=== PATIENT | male | born 1935 | race Caucasian/White ===

== ENCOUNTER 2018-06-29 16:43 | Inpatient (IN) | payer MEDICARE, BC ==
[2018-06-29] MEDS ORDERED: NS 0.9% 1000 ML* 1,000 ML IV ONE (17:06)
--- NOTE | 2018-06-29 17:35 | RAD ---
HISTORY: Weakness COMPARISONS: July 31, 2016 TECHNIQUE: Multiple contiguous axial CT scans were obtained of the head without intravenous contrast. FINDINGS: HEMORRHAGE/INFARCT: There is no hemorrhage or acute infarct. MASSES/SHIFT: There is no mass or shift. EXTRA-AXIAL SPACES: There are no extra-axial fluid collections. SULCI AND VENTRICLES: There is diffuse and proportional enlargement of the sulci and ventricles. CEREBRUM: There are no focal parenchymal abnormalities. BRAINSTEM: There are no focal parenchymal abnormalities. CEREBELLUM: There are no focal parenchymal abnormalities. VESSELS: There is calcification of the cavernous segments of the internal carotid arteries bilaterally and of the distal vertebral arteries bilaterally. PARANASAL SINUSES: The paranasal sinuses are clear. ORBITS: The orbits are unremarkable. BONES AND SOFT TISSUE: No bone or soft tissue abnormalities are noted. OTHER: None IMPRESSION: NO ACUTE INTRACRANIAL PATHOLOGY. DIFFUSE INVOLUTIONAL CHANGE.
[2018-06-29 18:21] LABS: Hematocrit 39 % (42-52); Hemoglobin 12.9 g/dl (14.0-18.0); Mean Corpuscular HGB Conc 33 g/dl (31-36); Mean Corpuscular Hemoglobin 30 pg (27-31); Mean Corpuscular Volume 92 fL (80-94); Mean Platelet Volume 8.3 um3 (7.4-10.4); Platelet Count 262 10^3/ul (150-450); Red Blood Count 4.25 10^6/ul (4.00-5.40); Red Cell Distribution Width 15 % (10.5-15)
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
[2018-06-29 18:39] LABS: EGFR Non-African American 87.1 (>60)
[2018-06-29 18:41] LABS: Urine Appearance Cloudy; Urine Blood 3+ (Negative); Urine Color Amber; Urine Ketones 1+ (Negative); Urine Protein 2+(100 mg/dL) (Negative); Urine Red Blood Cell 2+(6-10/hpf) (Absent); Urine Urobilinogen Negative (Negative); Urine White Blood Cell 3+(>20/hpf) (Absent)
[2018-06-29] MEDS ORDERED: Ciprofloxacin 400MG IVPREMIX(* 400 MG/200 ML BAG IVPB ONE (18:47)
[2018-06-29] MEDS ORDERED: Magnesium Oxide TAB* 400 MG PO ONE (18:54)
[2018-06-29 19:32] LABS: ABS Basophils 0.1 10^3/ul (0-0.2); ABS Eosinophils 0 10^3/ul (0-0.6); ABS Lymphocytes 0.4 10^3/ul (1.0-4.8); ABS Monocytes 0.8 10^3/ul (0-0.8); ABS Neutrophils 22.7 10^3/ul (1.5-7.7); ABS Nucleated RBC 0 10^3/ul; Eosinophil % 0 % (0-6); Lymphocyte % 1.7 % (25-47); Nucleated Red Blood Cells % 0
[2018-06-29] MEDS ORDERED: Docusate CAP* 100 MG PO PRN (19:53)
[2018-06-29] MEDS ORDERED: Senna TAB PO PRN ×2 (19:53→19:58)
[2018-06-29] MEDS ORDERED: Al Hydrox/Mg Hydrox/Simet LIQ* 30 ML UDC PO PRN (19:53)
[2018-06-29] MEDS ORDERED: Ondansetron INJ* 2 MG/ML VIAL IV PRN (19:53)
[2018-06-29] MEDS ORDERED: Acetaminophen TAB* 325 MG PO PRN (19:53)
--- NOTE | 2018-06-29 20:40 | RAD ---
EXAM: CT Abdomen and Pelvis Without Intravenous Contrast CLINICAL HISTORY: 82 years old, male; Pain; Abdominal pain; Prior surgery; Patient HX: Hernia repair; Additional info: R/O stone TECHNIQUE: Axial computed tomography images of the abdomen and pelvis without intravenous contrast. All CT scans at this facility use at least one of these dose optimization techniques: automated exposure control; mA and/or kV adjustment per patient size (includes targeted exams where dose is matched to clinical indication); or iterative reconstruction. Coronal and sagittal reformatted images were created and reviewed. COMPARISON: A/P W CT ABD/PEL W 11/24/2014 6:56 PM FINDINGS: Lung bases: Mild dependent subsegmental atelectasis. Mediastinum: Small hiatal hernia. No adjacent stranding. ABDOMEN: Liver: Several simple hepatic cysts again identified largest in segment V measures 3.9 cm previously 3.3 cm. Round cyst now showing peripheral thin calcifications in segment 4A measures 2.9 cm, previously 3.2 cm. Normal liver size. Gallbladder and bile ducts: Normal. No radiopaque calculi. No ductal dilation. Pancreas: Normal. No ductal dilation. Spleen: Normal. No splenomegaly. Adrenals: Tiny calcified right adrenal gland unchanged from prior study. Mildly thickened left adrenal gland without focal nodularity. Kidneys and ureters: Left minimal lower pole and right lower pole simple cysts with the largest on the left measuring 3 cm. No calculi or pelvocaliectasis. Stomach and bowel: Incompletely distended grossly normal stomach. Normal caliber small bowel. Distal colonic diverticula without adjacent inflammatory changes or associated wall thickening. Supraumbilical fat and colon containing hernia. No adjacent stranding or upstream colonic dilation. PELVIS: Appendix: No dilation or periappendiceal inflammation. Bladder: Circumferentially thickwalled urinary bladder with mild perivesicular stranding. Anterior right and posterior right bladder diverticula with the posterior diverticulum containing a small calcification. Reproductive: Severe prostate enlargement. Normal seminal vesicles. Partially visualized bilateral hydroceles. ABDOMEN and PELVIS: Intraperitoneal space: Normal. No pneumoperitoneum. No ascities. Bones/joints: The spine demonstrates moderate degenerative changes at multiple levels. Height loss of all lumbar vertebral bodies and more acute appearing partially visualized fracture of T9. No retropulsed fragments. No suspicious osseous lesions. Soft tissues: See above. Vasculature: There is mild atherosclerotic calcification of the coronary arteries. The aorta demonstrates mild atherosclerotic calcification. No abdominal aortic aneurysm. Lymph nodes: Normal. No enlarged lymph nodes. IMPRESSION: 1. Findings of cystitis in combination with bladder outlet obstruction from severe prostatomegaly. No obstructing renal or ureteral calculi. 2. Colon containing supraumbilical hernia. No strangulation or obstruction. 3. Age-indeterminate possibly partially acute T9 compression fracture. 4. Additional incidental findings as described.
--- NOTE | 2018-06-29 21:18 | RAD ---
EXAM: US Abdomen Limited, Right Upper Quadrant CLINICAL HISTORY: 82 years old, male; Pain; Abdominal pain; Flank; Right upper quadrant (ruq); Additional info: Ruq pain TECHNIQUE: Real-time ultrasound of the right upper quadrant with image documentation. COMPARISON: A/P WO CT ABD/PEL W/O 06/29/2018 8:05 PM FINDINGS: Liver: Several simple hepatic cysts example inferior right hepatic lobe measuring 1.4 x 1.3 x 1.1 cm. Anterior right hepatic lobe cyst measures 0.7 x 0.7 x 0.7 cm. Larger hepatic cyst adjacent to gallbladder fossa measures 4.3 x 4.0 x 3.0 cm. Hypoechoic focus with peripheral calcifications medial segment left hepatic lobe measures 3.2 x 2.4 x 2.4 cm showing no internal vascularity. Left hepatic lobe not well visualized due to overlying bowel gas. Normal hepato-pedal portal vein flow. Gallbladder: No gallstones, wall thickening, pericholecystic fluid, or sonographic Pelayo's sign. Common bile duct: CBD measures 0.7 cm. Pancreas: The pancreas is poorly-visualized due to overlying bowel gas. Right kidney: Right kidney measures 9.8 x 5.0 x 5.0 cm (128 cc). Exophytic simple cyst in the lower pole measures 1.9 x 1.8 x 1.8 cm. No solid cortical lesions, calculi, or pelvocaliectasis. Aorta: Moderately atherosclerotic normal caliber aorta measuring 2.4 cm proximally. Inferior vena cava: Patent IVC. IMPRESSION: 1. No sonographic findings to correlate with patient's symptomatology. 2. Multiple simple hepatic cysts and a mildly complex peripherally calcified cyst. 3. Simple right renal cyst.
[2018-06-29] MEDS: Multivitamins/Minera Areds(NF) 1 CAP CAP PO SCH (23:17)
[2018-06-29] MEDS: NS 0.9% 1000 ML* 1,000 ML IV SCH (23:17)
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
[2018-06-30 05:58] LABS: ABS Basophils 0.1 10^3/ul (0-0.2); ABS Eosinophils 0 10^3/ul (0-0.6); ABS Lymphocytes 0.9 10^3/ul (1.0-4.8); ABS Monocytes 0.7 10^3/ul (0-0.8); ABS Neutrophils 18.1 10^3/ul (1.5-7.7); ABS Nucleated RBC 0 10^3/ul; Eosinophil % 0 % (0-6); Hematocrit 33 % (42-52); Lymphocyte % 4.4 % (25-47); Mean Corpuscular HGB Conc 34 g/dl (31-36); Mean Corpuscular Hemoglobin 31 pg (27-31); Mean Corpuscular Volume 91 fL (80-94); Mean Platelet Volume 8.7 um3 (7.4-10.4); Nucleated Red Blood Cells % 0.1; Platelet Count 199 10^3/ul (150-450); Red Blood Count 3.58 10^6/ul (4.00-5.40); Red Cell Distribution Width 15 % (10.5-15); White Blood Count 19.7 10^3/ul (3.5-10.8)
[2018-06-30] MEDS: cefTRIAXone(*) 1 GM in NS 0.9% 50 ML* 50 ML IVPB SCH (06:02)
[2018-06-30] MEDS: Heparin VIAL(*) 5000 UNITS/ML VIAL (FIVE THOUSAND) SUBCUT SCH ×3 (06:03→23:14)
[2018-06-30 06:48] LABS: EGFR Non-African American 93.4 (>60)
--- NOTE | 2018-06-30 07:07 | RAD ---
INDICATION: Weakness. COMPARISON: Comparison is made with a prior chest x-ray study from July 31, 2016. TECHNIQUE: Dual-energy PA views of the chest were obtained. FINDINGS: The heart is within normal limits in size. The lungs are underinflated. There is a small infiltrate was projects over the left upper lobe. No pleural effusion is seen. IMPRESSION: LOW LUNG VOLUMES, SMALL LEFT UPPER LOBE INFILTRATE
--- NOTE | 2018-06-30 07:11 | RAD ---
INDICATION: Right hip pain. COMPARISON: There are no relevant prior studies available for comparison. TECHNIQUE: An AP view of the pelvis and frontal and lateral views of the right hip were obtained. FINDINGS: The bones are in normal alignment. No fracture is seen. There is mild bilateral osteoarthritic change in the hips. IMPRESSION: NO EVIDENCE FOR FRACTURE, IF THE PATIENT'S SYMPTOMS PERSIST RECOMMEND FOLLOW-UP IMAGING. R0
--- NOTE | 2018-06-30 07:14 | RAD ---
INDICATION: Right shoulder pain. TECHNIQUE: 4 views of the right shoulder were obtained. FINDINGS: The bones are in normal alignment. No fracture is seen. There is moderate osteoarthritic change in the acromioclavicular and glenohumeral joint spaces. IMPRESSION: 1. NO EVIDENCE FOR FRACTURE. 2. MODERATE OSTEOARTHRITIC CHANGE. R0
[2018-06-30] MEDS: NS 0.9% 1000 ML* 1,000 ML IV SCH ×2 (08:15→16:46)
[2018-06-30] MEDS: Multivitamins/Minera Areds(NF) 1 CAP CAP PO SCH ×2 (08:54→20:14)
[2018-06-30] MEDS: Cyanocobalamin TAB* 500 MCG PO SCH (09:45)
[2018-06-30] MEDS: Ascorbic Acid TAB* 500 MG PO SCH (09:45)
[2018-06-30] MEDS: Famotidine TAB* 20 MG PO SCH (09:45)
[2018-06-30] MEDS ORDERED: NS 0.9% 1000 ML* 1,000 ML IV ONE ×3 (12:26→16:57)
--- NOTE | 2018-06-30 14:53 | PN ---
Subjective Date of Service: 06/30/18 Interval History: HOSPITALIST PROGRESS NOTE Patient seen and examined at bedside. Care reviewed and d/w Ciera Villatoro RN. He feels well today. RUQ pain has resolved, appetite is good, denies N/V. Family History: Unchanged from Admission Social History: Unchanged from Admission Past Medical History: Unchanged from Admission Objective Active Medications: Acetaminophen (Tylenol Tab*) 650 mg PO Q4H PRN PRN Reason: FEVER/PAIN Last Admin: 06/29/18 23:45 Dose: 650 mg Al Hydrox/Mg Hydrox/Simethicone (Maalox Plus*) 30 ml PO Q6H PRN PRN Reason: INDIGESTION Ascorbic Acid (Vitamin C Tab*) 1,000 mg PO DAILY [facility] Last Admin: 06/30/18 09:45 Dose: 1,000 mg Cyanocobalamin (Vitamin B12 Tab*) 1,000 mcg PO DAILY [facility] Last Admin: 06/30/18 09:45 Dose: 1,000 mcg Docusate Sodium (Colace Cap*) 100 mg PO BID PRN PRN Reason: CONSTIPATION Famotidine (Pepcid Tab*) 20 mg PO DAILY [facility] Last Admin: 06/30/18 09:45 Dose: 20 mg Heparin Sodium (Porcine) (Heparin Vial(*)) 5,000 units SUBCUT Q8HR [facility] Last Admin: 06/30/18 13:20 Dose: Not Given Ceftriaxone Sodium 1 gm/ (Sodium Chloride) 50 mls @ 200 mls/hr IVPB Q24H [facility] Last Admin: 06/30/18 06:02 Dose: 200 mls/hr Sodium Chloride (Ns 0.9% 1000 Ml*) 1,000 mls @ 100 mls/hr IV PER RATE [facility] Last Admin: 06/30/18 08:15 Dose: 100 mls/hr Multivitamins/Minerals (Preservision Areds(Multivitamins/Mineral)(Nf)) 1 cap PO BID [facility] Last Admin: 06/30/18 08:54 Dose: Not Given Ondansetron HCl (Zofran Inj*) 4 mg IV Q4H PRN PRN Reason: NAUSEA/VOMITING Senna (Senokot Tab*) 2 tab PO BID PRN PRN Reason: CONSTIPATION Tramadol HCl (Ultram*) 50 mg PO Q6HR PRN PRN Reason: PAIN Vital Signs - 8 hr 06/30/18 06/30/18 06/30/18 07:56 08:00 11:46 Temperature 99.8 F 99.2 F Pulse Rate 77 88 Respiratory 16 16 16 Rate Blood Pressure 96/58 81/49 (mmHg) O2 Sat by Pulse 97 100 Oximetry 06/30/18 12:24 Temperature Pulse Rate Respiratory Rate Blood Pressure 88/50 (mmHg) O2 Sat by Pulse Oximetry Oxygen Devices in Use Now: None Appearance: Pleasant elderly gentleman sitting up in bed in NAD. Eyes: No Scleral Icterus Ears/Nose/Mouth/Throat: Mucous Membranes Moist Neck: Trachea Midline Respiratory: Symmetrical Chest Expansion and Respiratory Effort, Clear to Auscultation Cardiovascular: RRR - Normal S1 and S2, +SM Abdominal: NL Sounds; No Tenderness; No Distention Extremities: No Edema Neurological: Alert and Oriented x 3, NL Muscle Strength and Tone Result Diagrams: 06/30/18 05:31 06/30/18 05:31 Assess/Plan/Problems-Billing Assessment: Mr Milian is an 82yo M with PMH of DVT, SBO, GERD, who presented to ED after falls, found to have an UTI. - Patient Problems (1) Sepsis Comment: - Presentation compatible with sepsis on admission with leukocytosis, fever, and tachypnea. - Source is urinary tract infection. (2) UTI (urinary tract infection) Comment: - Present on admission, not [place] catheter related. - CT abdome showed cystitis with bladder outlet obstruction from severe prostatomegaly. Suspect he likely also has prostatitis. - PVR 119ml - d/w Urology - recommended Finasteride 5mg/day and f/u as outpatient. - Follow urine culture and continue Ceftriaxone. - BP was on the softer side earlier today - received 1 liter bolus - continue to monitor. (3) History of DVT (deep vein thrombosis) Comment: - Patient has h/o LE DVT in 1975 after a long car ride. He was under the impression he would be on Warfarin for the rest of his life, but this was his only episode and he does not recall being told he had some genetic problem causing his DVT. No family h/o blood clots. 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 Transitioned from Warfarin to Pradaxa in 2016. - Patient is hesitant to discontinue anticoagulation at this time, but understands he's at a greater risk of bleeding due to his falls - will continue Pradaxa for now, but this should be further addressed by his PCP. (4) Chronic back pain Comment: - With h/o compression fractures - CT shows T9 age indeterminate compression fracture. - Continue Tramadol. (5) GERD (gastroesophageal reflux disease) Comment: - Continue Famotidine. (6) Lactic acidosis Comment: - Resolved. (7) Physical deconditioning Comment: - PT consult. (8) DVT prophylaxis Comment: - Pradaxa. (9) Full code status Status and Disposition: Inpatient.
[2018-07-01] MEDS: NS 0.9% 1000 ML* 1,000 ML IV SCH ×2 (04:00→14:02)
[2018-07-01 05:44] LABS: ABS Basophils 0.1 10^3/ul (0-0.2); ABS Eosinophils 0.2 10^3/ul (0-0.6); ABS Lymphocytes 0.9 10^3/ul (1.0-4.8); ABS Monocytes 0.9 10^3/ul (0-0.8); ABS Nucleated RBC 0 10^3/ul; Eosinophil % 1.4 % (0-6); Hematocrit 30 % (42-52); Hemoglobin 9.9 g/dl (14.0-18.0); Lymphocyte % 6.2 % (25-47); Mean Corpuscular HGB Conc 34 g/dl (31-36); Mean Corpuscular Hemoglobin 31 pg (27-31); Mean Corpuscular Volume 91 fL (80-94); Mean Platelet Volume 8.7 um3 (7.4-10.4); Nucleated Red Blood Cells % 0.1; Platelet Count 178 10^3/ul (150-450); Red Blood Count 3.23 10^6/ul (4.00-5.40); Red Cell Distribution Width 16 % (10.5-15)
[2018-07-01] MEDS: cefTRIAXone(*) 1 GM in NS 0.9% 50 ML* 50 ML IVPB SCH (06:05)
[2018-07-01 06:07] LABS: EGFR Non-African American 130.9 (>60)
[2018-07-01] MEDS: Heparin VIAL(*) 5000 UNITS/ML VIAL (FIVE THOUSAND) SUBCUT SCH ×3 (06:11→22:24)
[2018-07-01] MEDS: Cyanocobalamin TAB* 500 MCG PO SCH (08:33)
[2018-07-01] MEDS: Ascorbic Acid TAB* 500 MG PO SCH (08:33)
[2018-07-01] MEDS: Famotidine TAB* 20 MG PO SCH (08:33)
[2018-07-01] MEDS: Finasteride TAB* 5 MG PO SCH (08:33)
[2018-07-01] MEDS: Multivitamins/Minera Areds(NF) 1 CAP CAP PO SCH ×2 (08:34→22:22)
--- NOTE | 2018-07-01 17:47 | PN ---
Subjective Date of Service: 07/01/18 Interval History: . feels tired, but no other complaints difficulty walking (general weakness and soreness from recent falls) explained he has h/o two remote DVT's -- both provoked. denies new s/sx. no fever IVF ongoing . Family History: Unchanged from Admission Social History: Unchanged from Admission Past Medical History: Unchanged from Admission Objective Active Medications: . Acetaminophen (Tylenol Tab*) 650 mg PO Q4H PRN PRN Reason: FEVER/PAIN Last Admin: 06/29/18 23:45 Dose: 650 mg Al Hydrox/Mg Hydrox/Simethicone (Maalox Plus*) 30 ml PO Q6H PRN PRN Reason: INDIGESTION Ascorbic Acid (Vitamin C Tab*) 1,000 mg PO DAILY [facility] Last Admin: 07/01/18 08:33 Dose: 1,000 mg Cyanocobalamin (Vitamin B12 Tab*) 1,000 mcg PO DAILY [facility] Last Admin: 07/01/18 08:33 Dose: 1,000 mcg Docusate Sodium (Colace Cap*) 100 mg PO BID PRN PRN Reason: CONSTIPATION Last Admin: 07/01/18 06:05 Dose: 100 mg Famotidine (Pepcid Tab*) 20 mg PO DAILY [facility] Last Admin: 07/01/18 08:33 Dose: 20 mg Finasteride (Proscar Tab*) 5 mg PO DAILY [facility] Last Admin: 07/01/18 08:33 Dose: 5 mg Heparin Sodium (Porcine) (Heparin Vial(*)) 5,000 units SUBCUT Q8HR [facility] Last Admin: 07/01/18 13:49 Dose: Not Given Ceftriaxone Sodium 1 gm/ (Sodium Chloride) 50 mls @ 200 mls/hr IVPB Q24H [facility] Last Admin: 07/01/18 06:05 Dose: 200 mls/hr Sodium Chloride (Ns 0.9% 1000 Ml*) 1,000 mls @ 100 mls/hr IV PER RATE [facility] Last Admin: 07/01/18 14:02 Dose: 100 mls/hr Multivitamins/Minerals (Preservision Areds(Multivitamins/Mineral)(Nf)) 1 cap PO BID [facility] Last Admin: 07/01/18 08:34 Dose: Not Given Ondansetron HCl (Zofran Inj*) 4 mg IV Q4H PRN PRN Reason: NAUSEA/VOMITING Senna (Senokot Tab*) 2 tab PO BID PRN PRN Reason: CONSTIPATION Last Admin: 07/01/18 06:05 Dose: 2 tab Tramadol HCl (Ultram*) 50 mg PO Q6HR PRN PRN Reason: PAIN . Vital Signs - 8 hr 07/01/18 07/01/18 07/01/18 11:16 12:05 16:00 Temperature 100.1 F 98.2 F 98.7 F Pulse Rate 77 63 Respiratory 18 20 Rate Blood Pressure 95/54 105/62 (mmHg) O2 Sat by Pulse 97 97 Oximetry Oxygen Devices in Use Now: None Appearance: NAD Eyes: No Scleral Icterus Ears/Nose/Mouth/Throat: Clear Oropharnyx Neck: NL Appearance and Movements; NL JVP Respiratory: Symmetrical Chest Expansion and Respiratory Effort Cardiovascular: NL Sounds; No Murmurs; No JVD Abdominal: NL Sounds; No Tenderness; No Distention Lymphatic: No Cervical Adenopathy Extremities: No Edema Skin: No Rash or Ulcers Neurological: Alert and Oriented x 3 Lines/Tubes/Other Access: Clean, Dry and Intact Peripheral IV Nutrition: Taking PO's Result Diagrams: 07/01/18 05:28 07/01/18 05:28 Microbiology and Other Data: Microbiology 06/29/18 18:11 Aerobic Blood Culture - Preliminary Blood Venous No Growth Day 1 Anaerobic Blood Culture - Preliminary Escherichia Coli 06/29/18 18:12 Urine Culture - Final Urine Escherichia Coli 06/29/18 18:12 Aerobic Blood Culture - Preliminary Blood Venous No Growth Day 1 Anaerobic Blood Culture - Preliminary No Growth Day 1 06/29/18 23:20 Influenza Types A,B Antigen - Final Nasopharyngeal Specimen received for Influenza A/B Molecular testing Assess/Plan/Problems-Billing Assessment: Mr Milian is an 82yo M with PMH of DVT, SBO, GERD, who presented to ED after falls, found to have an UTI. - Patient Problems (1) UTI (urinary tract infection) Current Visit: Yes Status: Acute Comment: - Present on admission, not [id number]. - CT abdomen showed cystitis with bladder outlet obstruction from severe prostatomegaly. Suspect he likely also has prostatitis ==> will prolong ABX course. - PVR 119ml - d/w Urology - recommended Finasteride 5mg/day and outpatient f/u - Urine culture + for E. Coli S to Ceftriaxone (continuing) (2) Sepsis Current Visit: Yes Status: Acute Comment: - Presentation c/w sepsis on admission with leukocytosis, fever, and tachypnea. - Source is urinary tract infection. (3) History of DVT (deep vein thrombosis) Current Visit: Yes Status: Acute Priority: High Code(s): Z86.718 - PERSONAL HISTORY OF OTHER VENOUS THROMBOSIS AND EMBOLISM Comment: - Patient has h/o LE DVT in 1975 after a long car ride. He was under the impression he would be on Warfarin for the rest of his life, but this was his only episode and he does not recall being told he had some genetic problem causing his DVT. No family h/o blood clots. 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 Transitioned from Warfarin to Pradaxa in 2016. - Patient is hesitant to discontinue anticoagulation at this time, but understands he's at a greater risk of bleeding due to his falls - This should be further addressed by his PCP. (4) Chronic back pain Current Visit: Yes Status: Acute Priority: High Code(s): M54.9 - DORSALGIA , UNSPECIFIED; G89.29 - OTHER CHRONIC PAIN Comment: - With h/o compression fractures - CT shows T9 age indeterminate compression fracture. - Continue Tramadol. (5) DVT prophylaxis Current Visit: Yes Status: Acute Priority: High Code(s): HPS4925 - Comment: - Pradaxa. (6) Full code status Current Visit: Yes Status: Acute Priority: High Code(s): Z78.9 - OTHER SPECIFIED HEALTH STATUS (7) GERD (gastroesophageal reflux disease) Current Visit: Yes Status: Acute Priority: High Code(s): K21.9 - GASTRO- ESOPHAGEAL REFLUX DISEASE WITHOUT ESOPHAGITIS Comment: - Continue Famotidine. Status and Disposition: Inpatient.
[2018-07-01] MEDS ORDERED: Potassium Chlor TAB* 10 MEQ TAB.ER PO ONE (17:50)
[2018-07-02] MEDS: cefTRIAXone(*) 1 GM in NS 0.9% 50 ML* 50 ML IVPB SCH (06:01)
[2018-07-02] MEDS: Heparin VIAL(*) 5000 UNITS/ML VIAL (FIVE THOUSAND) SUBCUT SCH ×3 (06:04→21:41)
[2018-07-02 07:48] LABS: ABS Basophils 0.1 10^3/ul (0-0.2); ABS Eosinophils 0.3 10^3/ul (0-0.6); ABS Lymphocytes 0.9 10^3/ul (1.0-4.8); ABS Monocytes 0.9 10^3/ul (0-0.8); ABS Neutrophils 8.2 10^3/ul (1.5-7.7); ABS Nucleated RBC 0 10^3/ul; Eosinophil % 2.5 % (0-6); Hematocrit 29 % (42-52); Lymphocyte % 8.3 % (25-47); Mean Corpuscular HGB Conc 34 g/dl (31-36); Mean Corpuscular Hemoglobin 31 pg (27-31); Mean Corpuscular Volume 91 fL (80-94); Nucleated Red Blood Cells % 0; Platelet Count 180 10^3/ul (150-450); Red Blood Count 3.22 10^6/ul (4.00-5.40); Red Cell Distribution Width 16 % (10.5-15); White Blood Count 10.3 10^3/ul (3.5-10.8)
[2018-07-02 08:08] LABS: EGFR Non-African American 178.9 (>60)
[2018-07-02] MEDS: Multivitamins/Minera Areds(NF) 1 CAP CAP PO SCH ×2 (10:14→21:42)
[2018-07-02] MEDS: Cyanocobalamin TAB* 500 MCG PO SCH (10:14)
[2018-07-02] MEDS: Ascorbic Acid TAB* 500 MG PO SCH (10:14)
[2018-07-02] MEDS: Finasteride TAB* 5 MG PO SCH (10:14)
[2018-07-02] MEDS: Famotidine TAB* 20 MG PO SCH (10:14)
--- NOTE | 2018-07-02 17:24 | PN ---
Subjective Date of Service: 07/02/18 Interval History: Mr. Chacon is feeling well this morning. Denies pain. SBPs improved since yesterday. Has been up ambulating in the room. Denies CP, dizziness, SOB, N/V, dysuria. Family History: Unchanged from Admission Social History: Unchanged from Admission Past Medical History: Unchanged from Admission Objective Active Medications: Acetaminophen (Tylenol Tab*) 650 mg PO Q4H PRN Al Hydrox/Mg Hydrox/Simethicone (Maalox Plus*) 30 ml PO Q6H PRN Ascorbic Acid (Vitamin C Tab*) 1,000 mg PO DAILY [facility] Cyanocobalamin (Vitamin B12 Tab*) 1,000 mcg PO DAILY [facility] Docusate Sodium (Colace Cap*) 100 mg PO BID PRN Famotidine (Pepcid Tab*) 20 mg PO DAILY [facility] Finasteride (Proscar Tab*) 5 mg PO DAILY [facility] Heparin Sodium (Porcine) (Heparin Vial(*)) 5,000 units SUBCUT Q8HR [facility] Ceftriaxone Sodium 1 gm/ (Sodium Chloride) 50 mls @ 200 mls/hr IVPB Q24H [facility] Lactated Ringer's (Lactated Ringers 1000 Ml Bag*) 1,000 mls @ 75 mls/hr IV PER RATE [facility] Multivitamins/Minerals (Preservision Areds(Multivitamins/Mineral)(Nf)) 1 cap PO BID [facility] Ondansetron HCl (Zofran Inj*) 4 mg IV Q4H PRN Senna (Senokot Tab*) 2 tab PO BID PRN Tramadol HCl (Ultram*) 50 mg PO Q6HR PRN Vital Signs - 8 hr 07/02/18 07/02/18 14:45 15:34 Temperature 98.1 F 97.6 F Pulse Rate 72 62 Respiratory 16 24 Rate Blood Pressure 111/67 106/58 (mmHg) O2 Sat by Pulse 98 98 Oximetry Oxygen Devices in Use Now: None Appearance: Elderly male laying in bed in no acute distress. Eyes: No Scleral Icterus, PERRLA Ears/Nose/Mouth/Throat: Mucous Membranes Moist Neck: NL Appearance and Movements; NL JVP Respiratory: Symmetrical Chest Expansion and Respiratory Effort, Clear to Auscultation Cardiovascular: NL Sounds; No Murmurs; No JVD, RRR, No Edema Abdominal: No Hepatosplenomegaly, - - LLQ and RLQ tender to palpation Extremities: No Edema Skin: No Rash or Ulcers Neurological: Alert and Oriented x 3 Lines/Tubes/Other Access: Clean, Dry and Intact Peripheral IV Nutrition: Taking PO's Result Diagrams: 07/02/18 07:24 07/02/18 07:24 Assess/Plan/Problems-Billing Assessment: Mr Milian is an 82yo M with PMH of DVT, SBO, GERD, who presented to ED after falls, found to have an UTI. - Patient Problems (1) UTI (urinary tract infection) Current Visit: Yes Status: Acute Priority: High Comment: - Present on admission, not catheter related - CT abdomen showed cystitis with bladder outlet obstruction from severe prostatomegaly; suspect he likely also has prostatitis - will prolong ABX course - PVR 119ml; d/w Urology - recommended Finasteride 5mg/day and outpatient f/u - Urine culture + for E. Coli S to Ceftriaxone (continuing) (2) Low blood pressure Current Visit: Yes Status: Acute Priority: High Comment: - SBPs 80-90, increased to 100-110s with IVF - Will decrease IVF and reassess tomorrow (3) Sepsis Current Visit: Yes Status: Acute Priority: High Comment: - Resolved - Presentation c/w sepsis on admission with leukocytosis, fever, and tachypnea - Source is urinary tract infection (4) GERD (gastroesophageal reflux disease) Current Visit: Yes Status: Acute Priority: High Code(s): K21.9 - GASTRO- ESOPHAGEAL REFLUX DISEASE WITHOUT ESOPHAGITIS SNOMED Code(s): 208484008 Comment: - Continue famotidine (5) Chronic back pain Current Visit: Yes Status: Acute Priority: High Code(s): M54.9 - DORSALGIA , UNSPECIFIED; G89.29 - OTHER CHRONIC PAIN SNOMED Code(s): 940106499 Comment: - With h/o compression fractures - CT shows T9 age indeterminate compression fracture - Continue Tramadol (6) History of DVT (deep vein thrombosis) Current Visit: Yes Status: Acute Priority: High Code(s): Z86.718 - PERSONAL HISTORY OF OTHER VENOUS THROMBOSIS AND EMBOLISM SNOMED Code(s): 008301332 Comment: - Patient has h/o LE DVT in 1975 after a long car ride. He was under the impression he would be on Warfarin for the rest of his life, but this was his only episode and he does not recall being told he had some genetic problem causing his DVT. No family h/o blood clots. 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 Transitioned from Warfarin to Pradaxa in 2016. - Patient is hesitant to discontinue anticoagulation at this time, but understands he's at a greater risk of bleeding due to his falls - This should be further addressed by his PCP (7) Full code status Current Visit: Yes Status: Acute Priority: High Code(s): Z78.9 - OTHER SPECIFIED HEALTH STATUS SNOMED Code(s): 517944587 (8) DVT prophylaxis Current Visit: Yes Status: Acute Priority: High Code(s): EWO8761 - SNOMED Code(s): 143047712 Comment: - Heparin SQ Status and Disposition: Inpatient. Bed offer at [facility] when medically stable.
[2018-07-02] MEDS: traMADol TAB* 50 MG PO PRN (21:39)
[2018-07-03 06:17] LABS: ABS Basophils 0.1 10^3/ul (0-0.2); ABS Eosinophils 0.4 10^3/ul (0-0.6); ABS Lymphocytes 1.1 10^3/ul (1.0-4.8); ABS Monocytes 0.9 10^3/ul (0-0.8); ABS Neutrophils 5.8 10^3/ul (1.5-7.7); ABS Nucleated RBC 0 10^3/ul; Eosinophil % 4.5 % (0-6); Hematocrit 31 % (42-52); Hemoglobin 10.5 g/dl (14.0-18.0); Lymphocyte % 13.7 % (25-47); Mean Corpuscular HGB Conc 34 g/dl (31-36); Mean Corpuscular Hemoglobin 31 pg (27-31); Mean Corpuscular Volume 91 fL (80-94); Mean Platelet Volume 8.6 um3 (7.4-10.4); Nucleated Red Blood Cells % 0; Platelet Count 190 10^3/ul (150-450); Red Blood Count 3.42 10^6/ul (4.00-5.40); Red Cell Distribution Width 16 % (10.5-15); White Blood Count 8.3 10^3/ul (3.5-10.8)
[2018-07-03] MEDS: Heparin VIAL(*) 5000 UNITS/ML VIAL (FIVE THOUSAND) SUBCUT SCH ×3 (06:19→21:00)
[2018-07-03] MEDS: cefTRIAXone(*) 1 GM in NS 0.9% 50 ML* 50 ML IVPB SCH (06:23)
[2018-07-03 06:34] LABS: EGFR Non-African American 166.1 (>60)
[2018-07-03] MEDS: Artificial Tears* 15 ML BTL BOTH EYES PRN (08:17)
[2018-07-03] MEDS: Cyanocobalamin TAB* 500 MCG PO SCH (08:18)
[2018-07-03] MEDS: Famotidine TAB* 20 MG PO SCH (08:18)
[2018-07-03] MEDS: traMADol TAB* 50 MG PO PRN (08:18)
[2018-07-03] MEDS: Finasteride TAB* 5 MG PO SCH (08:19)
[2018-07-03] MEDS: Ascorbic Acid TAB* 500 MG PO SCH (08:19)
[2018-07-03] MEDS ORDERED: Potassium Chlor TAB* 20 MEQ TAB.ER PO ONE (08:45)
[2018-07-03] MEDS: Multivitamins/Minera Areds(NF) 1 CAP CAP PO SCH (09:09)
--- NOTE | 2018-07-03 12:35 | PN ---
Subjective Date of Service: 07/03/18 Interval History: Mr. Chacon offers no complaints today. Having some shoulder pain. No urinary symptoms. Per nursing, patient was dizzy while laying in bed and has had SBPs in the 90s. Family History: Unchanged from Admission Social History: Unchanged from Admission Past Medical History: Unchanged from Admission Objective Active Medications: Acetaminophen (Tylenol Tab*) 650 mg PO Q4H PRN Al Hydrox/Mg Hydrox/Simethicone (Maalox Plus*) 30 ml PO Q6H PRN Ascorbic Acid (Vitamin C Tab*) 1,000 mg PO DAILY [facility] Cyanocobalamin (Vitamin B12 Tab*) 1,000 mcg PO DAILY [facility] Docusate Sodium (Colace Cap*) 100 mg PO BID PRN Famotidine (Pepcid Tab*) 20 mg PO DAILY [facility] Finasteride (Proscar Tab*) 5 mg PO DAILY [facility] Heparin Sodium (Porcine) (Heparin Vial(*)) 5,000 units SUBCUT Q8HR [facility] Ceftriaxone Sodium 1 gm/ (Sodium Chloride) 50 mls @ 200 mls/hr IVPB Q24H [facility] Midodrine (Midodrine (Nf)) 5 mg PO BID [facility]; Protocol Ondansetron HCl (Zofran Inj*) 4 mg IV Q4H PRN Polyvinyl Alcohol (Polyvinyl Alcohol 1.4% Opth*) 1 drop BOTH EYES Q2H PRN Senna (Senokot Tab*) 2 tab PO BID PRN Tramadol HCl (Ultram*) 50 mg PO Q6HR PRN Vital Signs - 8 hr 07/03/18 07/03/18 07/03/18 05:57 07:50 08:18 Temperature 98.0 F Pulse Rate 70 Respiratory 18 18 16 Rate Blood Pressure 105/63 (mmHg) O2 Sat by Pulse 95 Oximetry 07/03/18 07/03/18 07/03/18 10:40 10:59 12:25 Temperature 98.6 F Pulse Rate 94 Respiratory 19 14 Rate Blood Pressure 90/57 95/62 (mmHg) O2 Sat by Pulse 95 Oximetry Oxygen Devices in Use Now: None Appearance: Elderly male laying in bed in no acute distress. Eyes: No Scleral Icterus Ears/Nose/Mouth/Throat: NL Teeth, Lips, Gums, Mucous Membranes Moist Neck: NL Appearance and Movements; NL JVP Respiratory: Symmetrical Chest Expansion and Respiratory Effort, Clear to Auscultation Cardiovascular: NL Sounds; No Murmurs; No JVD, RRR, No Edema Abdominal: No Hepatosplenomegaly, - - RLQ and LLQ ternder to palpation Extremities: No Edema Skin: No Rash or Ulcers Neurological: Alert and Oriented x 3 Lines/Tubes/Other Access: Clean, Dry and Intact Peripheral IV Nutrition: Taking PO's Result Diagrams: 07/03/18 05:46 07/03/18 05:46 Assess/Plan/Problems-Billing Assessment: Mr Milian is an 82yo M with PMH of DVT, SBO, GERD, who presented to ED after falls, found to have an UTI. - Patient Problems (1) UTI (urinary tract infection) Current Visit: Yes Status: Acute Priority: High Comment: - Present on admission, not catheter related - CT abdomen showed cystitis with bladder outlet obstruction from severe prostatomegaly; suspect he likely also has prostatitis - will prolong ABX course - PVR 119ml; d/w Urology - recommended Finasteride 5mg/day and outpatient f/u - Urine culture + for E. Coli S to Ceftriaxone (continuing) (2) Low blood pressure Current Visit: Yes Status: Acute Priority: High Comment: - Symptomatic hypotension while laying down with SBP in the 90s - IVF stopped - Start midodrine BID (3) Sepsis Current Visit: Yes Status: Acute Priority: High Comment: - Resolved - Presentation c/w sepsis on admission with leukocytosis, fever, and tachypnea - Source is urinary tract infection (4) GERD (gastroesophageal reflux disease) Current Visit: Yes Status: Acute Priority: High Code(s): K21.9 - GASTRO- ESOPHAGEAL REFLUX DISEASE WITHOUT ESOPHAGITIS SNOMED Code(s): 640657425 Comment: - Continue famotidine (5) Chronic back pain Current Visit: Yes Status: Acute Priority: High Code(s): M54.9 - DORSALGIA , UNSPECIFIED; G89.29 - OTHER CHRONIC PAIN SNOMED Code(s): 421367429 Comment: - With h/o compression fractures - CT shows T9 age indeterminate compression fracture - Continue Tramadol (6) History of DVT (deep vein thrombosis) Current Visit: Yes Status: Acute Priority: High Code(s): Z86.718 - PERSONAL HISTORY OF OTHER VENOUS THROMBOSIS AND EMBOLISM SNOMED Code(s): 219273254 Comment: - Patient has h/o LE DVT in 1975 after a long car ride. He was under the impression he would be on Warfarin for the rest of his life, but this was his only episode and he does not recall being told he had some genetic problem causing his DVT. No family h/o blood clots. 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 Transitioned from Warfarin to Pradaxa in 2016. - Patient is hesitant to discontinue anticoagulation at this time, but understands he's at a greater risk of bleeding due to his falls - This should be further addressed by his PCP (7) Full code status Current Visit: Yes Status: Acute Priority: High Code(s): Z78.9 - OTHER SPECIFIED HEALTH STATUS SNOMED Code(s): 307077822 (8) DVT prophylaxis Current Visit: Yes Status: Acute Priority: High Code(s): XTY9232 - SNOMED Code(s): 612809912 Comment: - Heparin SQ Status and Disposition: Inpatient. D/c to [facility] when medically stable.
[2018-07-03] MEDS: CMC:Midodrine (NF) 5 MG TAB PO SCH ×2 (15:39→21:00)
[2018-07-04] MEDS: cefTRIAXone(*) 1 GM in NS 0.9% 50 ML* 50 ML IVPB SCH (05:47)
[2018-07-04] MEDS: Heparin VIAL(*) 5000 UNITS/ML VIAL (FIVE THOUSAND) SUBCUT SCH ×3 (05:50→21:22)
[2018-07-04 08:00] LABS: EGFR Non-African American 148.1 (>60)
[2018-07-04] MEDS: Famotidine TAB* 20 MG PO SCH (09:20)
[2018-07-04] MEDS: Cyanocobalamin TAB* 500 MCG PO SCH (09:20)
[2018-07-04] MEDS: Artificial Tears* 15 ML BTL BOTH EYES PRN ×3 (09:21→20:12)
[2018-07-04] MEDS: Ascorbic Acid TAB* 500 MG PO SCH (09:21)
[2018-07-04] MEDS: Finasteride TAB* 5 MG PO SCH (09:21)
[2018-07-04] MEDS: CMC:Midodrine (NF) 5 MG TAB PO SCH ×2 (10:46→20:11)
--- NOTE | 2018-07-04 16:35 | PN ---
Subjective Date of Service: 07/04/18 Interval History: Patient has no new complaints. He is trying to eat well. Has some lower abdominal discomfort. Prior to admission, living alone. He thinks he fell, injured buttocks, and strained R shoulder when getting up. He has little memory of events of admission, son is present. Family History: Unchanged from Admission Social History: Unchanged from Admission Past Medical History: Unchanged from Admission Objective Active Medications: Acetaminophen (Tylenol Tab*) 650 mg PO Q4H PRN PRN Reason: FEVER/PAIN Last Admin: 06/29/18 23:45 Dose: 650 mg Al Hydrox/Mg Hydrox/Simethicone (Maalox Plus*) 30 ml PO Q6H PRN PRN Reason: INDIGESTION Ascorbic Acid (Vitamin C Tab*) 1,000 mg PO DAILY [facility] Last Admin: 07/04/18 09:21 Dose: 1,000 mg Cyanocobalamin (Vitamin B12 Tab*) 1,000 mcg PO DAILY [facility] Last Admin: 07/04/18 09:20 Dose: 1,000 mcg Docusate Sodium (Colace Cap*) 100 mg PO BID PRN PRN Reason: CONSTIPATION Last Admin: 07/01/18 06:05 Dose: 100 mg Famotidine (Pepcid Tab*) 20 mg PO DAILY [facility] Last Admin: 07/04/18 09:20 Dose: 20 mg Finasteride (Proscar Tab*) 5 mg PO DAILY [facility] Last Admin: 07/04/18 09:21 Dose: 5 mg Heparin Sodium (Porcine) (Heparin Vial(*)) 5,000 units SUBCUT Q8HR [facility] Last Admin: 07/04/18 12:22 Dose: Not Given Ceftriaxone Sodium 1 gm/ (Sodium Chloride) 50 mls @ 200 mls/hr IVPB Q24H [facility] Last Admin: 07/04/18 05:47 Dose: 200 mls/hr Midodrine (Midodrine (Nf)) 5 mg PO BID [facility]; Protocol Last Admin: 07/04/18 10:46 Dose: 5 mg Ondansetron HCl (Zofran Inj*) 4 mg IV Q4H PRN PRN Reason: NAUSEA/VOMITING Polyvinyl Alcohol (Polyvinyl Alcohol 1.4% Opth*) 1 drop BOTH EYES Q2H PRN PRN Reason: DRY EYE Last Admin: 07/04/18 09:21 Dose: 1 admin Senna (Senokot Tab*) 2 tab PO BID PRN PRN Reason: CONSTIPATION Last Admin: 07/01/18 06:05 Dose: 2 tab Tramadol HCl (Ultram*) 50 mg PO Q6HR PRN PRN Reason: PAIN Last Admin: 07/03/18 08:18 Dose: 50 mg Vital Signs - 8 hr 07/04/18 07/04/18 11:14 15:55 Temperature 37.2 C 36.2 C Pulse Rate 89 86 Respiratory 18 23 Rate Blood Pressure 92/52 102/58 (mmHg) O2 Sat by Pulse 96 98 Oximetry Oxygen Devices in Use Now: None Appearance: alert, no distress Eyes: No Scleral Icterus Ears/Nose/Mouth/Throat: NL Teeth, Lips, Gums Neck: NL Appearance and Movements; NL JVP Respiratory: Clear to Auscultation Cardiovascular: NL Sounds; No Murmurs; No JVD, RRR Abdominal: NL Sounds; No Tenderness; No Distention, No Hepatosplenomegaly Extremities: No Edema Neurological: - - alert, cooperative Lines/Tubes/Other Access: Clean, Dry and Intact Peripheral IV Nutrition: Taking PO's Result Diagrams: 07/03/18 05:46 07/04/18 06:51 Microbiology and Other Data: Microbiology 06/29/18 23:20 Nasopharyngeal Influenza Types A,B Antigen - Final Specimen received for Influenza A/B Molecular testing 06/29/18 18:12 Urine Urine Culture - Final Escherichia Coli 06/29/18 18:11 Blood Venous Anaerobic Blood Culture - Final Escherichia Coli 06/29/18 18:12 Blood Venous Aerobic Blood Culture - Preliminary 06/29/18 18:12 Blood Venous Anaerobic Blood Culture - Preliminary No Growth Day 4 No Growth Day 4 06/29/18 18:11 Blood Venous Aerobic Blood Culture - Preliminary 06/29/18 18:11 Blood Venous No Growth Day 4 Assess/Plan/Problems-Billing Assessment: Mr Milian is an 82yo M with PMH of DVT, SBO, GERD, who presented to ED after falls, found to have an UTI. 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 (3) History of DVT (deep vein thrombosis) Current Visit: Yes Status: Acute Priority: High Code(s): Z86.718 - PERSONAL HISTORY OF OTHER VENOUS THROMBOSIS AND EMBOLISM SNOMED Code(s): 782810014 Comment: - This should be further addressed by his PCP (4) DVT prophylaxis Current Visit: Yes Status: Acute Priority: High Code(s): HZX3222 - SNOMED Code(s): 665877976 Comment: - Heparin SQ Status and Disposition: Inpatient. D/c to [facility] when medically stable.
[2018-07-04] MEDS: traMADol TAB* 50 MG PO PRN (20:11)
[2018-07-05] MEDS: cefTRIAXone(*) 1 GM in NS 0.9% 50 ML* 50 ML IVPB SCH (05:58)
[2018-07-05] MEDS: Heparin VIAL(*) 5000 UNITS/ML VIAL (FIVE THOUSAND) SUBCUT SCH ×3 (05:58→21:03)
[2018-07-05] MEDS: CMC:Midodrine (NF) 5 MG TAB PO SCH ×2 (08:59→21:03)
[2018-07-05] MEDS: Cyanocobalamin TAB* 500 MCG PO SCH (08:59)
[2018-07-05] MEDS: Ascorbic Acid TAB* 500 MG PO SCH (08:59)
[2018-07-05] MEDS: Artificial Tears* 15 ML BTL BOTH EYES PRN (08:59)
[2018-07-05] MEDS: Finasteride TAB* 5 MG PO SCH (08:59)
[2018-07-05] MEDS: Famotidine TAB* 20 MG PO SCH (08:59)
--- NOTE | 2018-07-05 10:45 | PN ---
Subjective Date of Service: 07/05/18 Interval History: Mr. Milian denies complaint today. He specifically denies chest pain, SOB, nausea, or abdominal pain. He endorses some right eye irritation which he says started a couple of days ago. However, nursing staff note that his son says it has looked this way for months. He denies vision changes or eye pain. Family History: Unchanged from Admission Social History: Unchanged from Admission Past Medical History: Unchanged from Admission Objective Active Medications: Acetaminophen (Tylenol Tab*) 650 mg PO Q4H PRN Al Hydrox/Mg Hydrox/Simethicone (Maalox Plus*) 30 ml PO Q6H PRN Ascorbic Acid (Vitamin C Tab*) 1,000 mg PO DAILY [facility] Cyanocobalamin (Vitamin B12 Tab*) 1,000 mcg PO DAILY [facility] Docusate Sodium (Colace Cap*) 100 mg PO BID PRN Famotidine (Pepcid Tab*) 20 mg PO DAILY [facility] Finasteride (Proscar Tab*) 5 mg PO DAILY [facility] Heparin Sodium (Porcine) (Heparin Vial(*)) 5,000 units SUBCUT Q8HR [facility] Ceftriaxone Sodium 1 gm/ (Sodium Chloride) 50 mls @ 200 mls/hr IVPB Q24H [facility] Midodrine (Midodrine (Nf)) 5 mg PO BID [facility]; Protocol Ondansetron HCl (Zofran Inj*) 4 mg IV Q4H PRN Polyvinyl Alcohol (Polyvinyl Alcohol 1.4% Opth*) 1 drop BOTH EYES Q2H PRN Senna (Senokot Tab*) 2 tab PO BID PRN Tramadol HCl (Ultram*) 50 mg PO Q6HR PRN Vital Signs: Temp Pulse Resp BP Pulse Ox 98.4 F 73 18 104/56 94 07/05/18 08:14 07/05/18 08:14 07/05/18 08:14 07/05/18 08:14 07/05/18 08:14 Oxygen Devices in Use Now: None Appearance: Elderly male lying in bed in NAD Eyes: No Scleral Icterus Ears/Nose/Mouth/Throat: Mucous Membranes Moist, - - Right eye sclera and congunctiva injected, minimal amount of mucoid discharge Neck: Trachea Midline Respiratory: Symmetrical Chest Expansion and Respiratory Effort, Clear to Auscultation Cardiovascular: NL Sounds; No Murmurs; No JVD, No Edema Abdominal: NL Sounds; No Tenderness; No Distention Extremities: No Edema Skin: No Rash or Ulcers Neurological: NL Muscle Strength and Tone, - - Alert and oriented to self Nutrition: Taking PO's - Nutrition: Malnutrition Diagnosis/Plan Malnutrition Assessment by Registered Dietitian: Malnutrition Assessment Clinical Characteristics Chronic,Severe Malnutrition Assessment: Severe recruitment assistant weight loss (23% over longer Criteria time, 14% over past 6 months) Signs of severe muscle wasting Malnutrition Assessment: Encourage continued intake of regular meals >75 % Interventions Offered nutritional supplements, but declined. Agrees to snack (150-200 kcals, 4 to 14 gms protein) Reviewed need for improvement in nutritional status with pt Anticipate continued intake at current level will result in improvement of nutritional status Malnutrition Assessment: Goals 1. Adequate oral intake to support weight regain, maintenance of lean body mass, wound healing. 2. Tolerates oral intake w/o evidence of aspiration/penetration. 3. Maintain K WNL. 4. Evidence of resolution of pressure ulcer R hip, no signs of further skin breakdown. Result Diagrams: 07/03/18 05:46 07/04/18 06:51 Microbiology and Other Data: . Assess/Plan/Problems-Billing Assessment: Mr Milian is an 82yo M with PMH of DVT, SBO, GERD, who presented to ED after falls, found to have a UTI, now with suspicion for prostatitis secondary to BPH. - Patient Problems (1) Sepsis Comment: - Resolved. - Presentation c/w sepsis on admission with leukocytosis, fever, and tachypnea - Source is prostatitis, E coli - Continue ceftriaxone (2) Prostatitis Comment: - Urine culture + for E. Coli S to Ceftriaxone (continuing) - CT abdomen showed cystitis with bladder outlet obstruction from severe prostatomegaly; will prolong ABX course - PVR 119ml; d/w Urology - recommended Finasteride 5mg/day and outpatient f/u (3) Chronic back pain Comment: - With h/o compression fractures - CT shows T9 age indeterminate compression fracture - Continue Tramadol (4) GERD (gastroesophageal reflux disease) Comment: - Continue famotidine (5) History of DVT (deep vein thrombosis) Comment: - History of DVT after long car ride in 1975. Patient continues on pradaxa, will need to follow up with PCP regarding continuation of therapy. (6) Low blood pressure Comment: - BP improved. - Patient had symptomatic hypotension while laying down with SBP in the 90s - Appears euvolemic after multiple liters of IV fluid since admission. - Continue midodrine BID (7) Physical deconditioning Comment: - Continue PT. (8) Red eye Comment: - Right eye red and discharge, unclear chronicity but suspect has been present for a few months. - Will try short course of antibiotics to see if will clear. (9) DVT prophylaxis Comment: - Pradaxa. (10) Full code status Comment: Status and Disposition: Inpatient. D/c to [facility] when medically stable.
[2018-07-06] MEDS: Heparin VIAL(*) 5000 UNITS/ML VIAL (FIVE THOUSAND) SUBCUT SCH (05:40)
[2018-07-06] MEDS: cefTRIAXone(*) 1 GM in NS 0.9% 50 ML* 50 ML IVPB SCH (05:40)
--- NOTE | 2018-07-06 08:13 | PN ---
Subjective Date of Service: 07/06/18 Interval History: Mr. Milian denies complaint. He specifically denies chest pain, SOB, nausea, or abdominal pain. He again states that his right eye has only be red for the past couple of days. Family History: Unchanged from Admission Social History: Unchanged from Admission Past Medical History: Unchanged from Admission Objective Active Medications: Acetaminophen (Tylenol Tab*) 650 mg PO Q4H PRN Al Hydrox/Mg Hydrox/Simethicone (Maalox Plus*) 30 ml PO Q6H PRN Ascorbic Acid (Vitamin C Tab*) 1,000 mg PO DAILY [facility] Cyanocobalamin (Vitamin B12 Tab*) 1,000 mcg PO DAILY [facility] Docusate Sodium (Colace Cap*) 100 mg PO BID PRN Erythromycin (Erythromycin Opth Oint*) 1 applic RIGHT EYE TID [facility] Famotidine (Pepcid Tab*) 20 mg PO DAILY [facility] Finasteride (Proscar Tab*) 5 mg PO DAILY [facility] Heparin Sodium (Porcine) (Heparin Vial(*)) 5,000 units SUBCUT Q8HR [facility] Ceftriaxone Sodium 1 gm/ (Sodium Chloride) 50 mls @ 200 mls/hr IVPB Q24H [facility] Midodrine (Midodrine (Nf)) 5 mg PO BID [facility]; Protocol Ondansetron HCl (Zofran Inj*) 4 mg IV Q4H PRN Polyvinyl Alcohol (Polyvinyl Alcohol 1.4% Opth*) 1 drop BOTH EYES Q2H PRN Senna (Senokot Tab*) 2 tab PO BID PRN Tramadol HCl (Ultram*) 50 mg PO Q6HR PRN Vital Signs: Temp Pulse Resp BP Pulse Ox 97.9 F 64 20 102/54 94 07/06/18 06:31 07/06/18 06:31 07/06/18 06:31 07/06/18 06:31 07/06/18 06:31 Oxygen Devices in Use Now: None Appearance: Male lying in bed in NAD Eyes: No Scleral Icterus, - - Right sclera and conjunctiva remain red with mucoid discharge Ears/Nose/Mouth/Throat: Mucous Membranes Moist Neck: Trachea Midline Respiratory: Symmetrical Chest Expansion and Respiratory Effort, Clear to Auscultation Cardiovascular: NL Sounds; No Murmurs; No JVD, No Edema Abdominal: NL Sounds; No Tenderness; No Distention Lymphatic: No Cervical Adenopathy Extremities: No Edema Skin: No Rash or Ulcers Neurological: Alert and Oriented x 3, NL Muscle Strength and Tone Nutrition: Taking PO's - Nutrition: Malnutrition Diagnosis/Plan Malnutrition Assessment by Registered Dietitian: Malnutrition Assessment Clinical Characteristics Chronic,Severe Malnutrition Assessment: Severe alf weight loss (23% over longer Criteria time, 14% over past 6 months) Signs of severe muscle wasting Malnutrition Assessment: Encourage continued intake of regular meals >75 % Interventions Offered nutritional supplements, but declined. Agrees to snack (150-200 kcals, 4 to 14 gms protein) Reviewed need for improvement in nutritional status with pt Anticipate continued intake at current level will result in improvement of nutritional status Malnutrition Assessment: Goals 1. Adequate oral intake to support weight regain, maintenance of lean body mass, wound healing. 2. Tolerates oral intake w/o evidence of aspiration/penetration. 3. Maintain K WNL. 4. Evidence of resolution of pressure ulcer R hip, no signs of further skin breakdown. Result Diagrams: 07/03/18 05:46 07/04/18 06:51 Microbiology and Other Data: . Assess/Plan/Problems-Billing Assessment: Mr Milian is an 82yo M with PMH of DVT, SBO, GERD, who presented to ED after falls, found to have a UTI, now with suspicion for prostatitis secondary to BPH. - Patient Problems (1) Sepsis Comment: - Resolved. - Presentation c/w sepsis on admission with leukocytosis, fever, and tachypnea - Source is prostatitis, E coli - Continue ceftriaxone (2) Prostatitis Comment: - Urine culture + for E. Coli S to Ceftriaxone (continuing) - CT abdomen showed cystitis with bladder outlet obstruction from severe prostatomegaly; will prolong ABX course. Bactrim BID x 6 weeks or until follow up with PCP. - PVR 119ml; d/w Urology - recommended Finasteride 5mg/day and outpatient f/u (3) Chronic back pain Comment: - With h/o compression fractures - CT shows T9 age indeterminate compression fracture - Continue Tramadol (4) GERD (gastroesophageal reflux disease) Comment: - Continue famotidine (5) History of DVT (deep vein thrombosis) Comment: - History of DVT after long car ride in 1975. Patient continues on pradaxa, will need to follow up with PCP regarding continuation of therapy. (6) Low blood pressure Comment: - BP improved. - Patient had symptomatic hypotension while laying down with SBP in the 90s - Appears euvolemic after multiple liters of IV fluid since admission. - Continue midodrine BID (7) Physical deconditioning Comment: - Continue PT. (8) Red eye Comment: - Right eye red and discharge, unclear chronicity but suspect has been present for a few months. - Will try short course of antibiotics to see if will clear. (9) DVT prophylaxis Comment: - Pradaxa. (10) Full code status Comment: Status and Disposition: Inpatient. D/c to [facility] when medically stable.
[2018-07-06] MEDS: Ascorbic Acid TAB* 500 MG PO SCH (09:35)
[2018-07-06] MEDS: CMC:Midodrine (NF) 5 MG TAB PO SCH (09:36)
[2018-07-06] MEDS: Cyanocobalamin TAB* 500 MCG PO SCH (09:36)
[2018-07-06] MEDS: traMADol TAB* 50 MG PO PRN (09:36)
[2018-07-06] MEDS: Famotidine TAB* 20 MG PO SCH (09:36)
[2018-07-06] MEDS: Finasteride TAB* 5 MG PO SCH (09:36)
[2018-07-06] MEDS: Erythromycin OPTH OINT* APPLIC OINT RIGHT EYE SCH ×2 (09:37→14:13)
--- NOTE | 2018-07-06 12:37 | DS ---
CC: Dr. Alexandre * DATE OF ADMISSION: . DATE OF DISCHARGE: 07/06/2018. ATTENDING PHYSICIAN: Dr. Seema Cook * (dictation provided by Vivienne Wallace NP ). PRIMARY DIAGNOSES: 1. Sepsis. 2. Prostatitis. 3. BPH with severe prostatomegaly, but no evidence of urinary retention. 4. Hypotension, now on Midodrine therapy. 5. Suspected bacterial conjunctivitis. SECONDARY DIAGNOSES: 1. History of DVT provoked in 1975 from a long car ride. 2. History of small bowel obstruction. 3. History of GERD. 4. History of urinary urgency. 5. Constipation. MEDICATIONS: 1. [place]-3 fatty acid 1,000 mg p.o. daily. 2. Vitamin K2 90 mcg p.o. b.i.d. 3. Pumpkin seed oil 160 mg p.o. daily. 4. Cholecalciferol 1,000 units p.o. daily. 5. Ascorbic acid 1,000 mg p.o. daily. 6. Cyanocobalamin 1,000 mcg p.o. daily. 7. PreserVision AREDS soft gel one cap p.o. b.i.d. 8. Glucosamine one cap p.o. b.i.d. 9. Senna two tabs p.o. daily prn. 10. Docusate 100 to 300 mg p.o. daily prn. 11. Tylenol 1,000 mg p.o. q.6 hours prn. 12. Tramadol 50 mg p.o. q.6 hours prn. 13. Ranitidine 150 mg p.o. b.i.d. 14. Pradaxa 150 mg p.o. b.i.d. 15. Bactrim DS one tab p.o. b.i.d. times 6 weeks. 16. Erythromycin 0.5% ophthalmic ointment to right eye t.i.d. times 5 days. 17. Finasteride 5 mg p.o. daily. 18. Midodrine 5 mg p.o. b.i.d. HOSPITAL COURSE: Mr. Milian is an 82-year-old male with a past medical history as outlined above who presented to the hospital on 06/29/2018 with concern for a fall. Please see the dictated history and physical from La Nena Rooth, D.O. for complete details. In brief, the patient reported that he had not been feeling well for a few days, but could not articulate further specifics. He states that he lost weight, but he was not sure how much. In the emergency room, he had labs which showed a white blood cell count of 24.0. His BUN and creatinine were normal, his lactic acid was 3.0, CRP was 151.62. His urine showed 3+ blood, 3+ leuk esterase, and 1+ bacteria. He was febrile to a fever of 101.2. Mr. Milian was admitted to the hospital for treatment of urinary tract infection. The remainder of his work-up included a brain CT that showed "no acute intracranial pathology;" a chest x-ray which showed "low lung volume, small left upper lobe infiltration;" and an abdomen/pelvis CT which showed "findings of cystitis in combination with bladder outlet obstruction from severe prostatomegaly, no obstructing renal or ureteral calculi, colon containing supraumbilical hernia, no strangulation or obstruction, age- indeterminate possibly partially acute T9 compression fracture, additional incidental findings as described." He had a hip/pelvis x-ray that showed "no evidence for fracture;" a shoulder x-ray that showed "no evidence for fracture; " and a gallbladder ultrasound which showed "no sonographic findings to correlate with the patient's symptomatology, multiple simple hepatic cysts, and a mildly complex peripherally calcified cyst, simple right renal cyst." Based on the finding of severe prostatomegaly on the abdominal/pelvis CT, the patient was suspected to actually have prostatitis rather than a simple cystitis. The patient was treated with Ceftriaxone while we waited urinary culture results. These ultimately showed an essentially pansensitive E. coli which is sensitive to Bactrim. Mr. Milian is doing better. We are initiating a six week course of Bactrim for his prostatitis. He has also been started on Finasteride and is recommended to follow-up with [facility] regarding management of his BPH and prostatitis. In addition, during the hospitalization the patient was evidenced low blood pressure despite aggressive fluid resuscitation and appearing on all accounts to be euvolemic. For this, the patient has been started on Midodrine and his blood pressure has been running systolically 90 to 100. Mr. Milian is medically stable to discharge to [facility] [place]. DISPOSITION: To [facility] [place]. DIET: Regular. ACTIVITY: As tolerated. FOLLOW-UP PLANS: 1. Please follow-up with [facility] in the next seven to ten days. 2. Please follow-up with the primary care physician in the next four to seven days if possible. Approximately 60 minutes were spent in the discharge of this patient, more than half that time was spent with the patient at the bedside reviewing the events leading up to and during this hospitalization, performing the physical examination, and reviewing the plan of care. VIVIENNE WALLACE NP [id number]/CPS #: [id number] AIDAN
[2018-07-06 13:24] VITALS: BP 108/58
[2018-07-06] MEDS ORDERED: Sulfamethox/Trimethoprim DS 800/160* TAB PO SCH (21:00)
== END 2018-07-06 14:45 | DRG 872 ==
LOC: ED 16:43 → MEDTELE 19:53 → MED 07-02 00:15
PROVIDERS: ADMIT Pediatrics; ATTEND Internal Medicine
DX: A41.51 Sepsis due to Escherichia coli [E. coli] (principal); N39.0 Urinary tract infection, site not specified; E46 Unspecified protein-calorie malnutrition; N13.8 Other obstructive and reflux uropathy; E87.2 Acidosis; I95.9 Hypotension, unspecified; R13.10 Dysphagia, unspecified; N41.9 Inflammatory disease of prostate, unspecified; M25.511 Pain in right shoulder; B96.20 Unspecified Escherichia coli [E. coli] as the cause of diseases classified elsewhere; H10.89 Other conjunctivitis; K21.9 Gastro-esophageal reflux disease without esophagitis; K59.00 Constipation, unspecified; N40.1 Benign prostatic hyperplasia with lower urinary tract symptoms; N39.498 Other specified urinary incontinence; M54.9 Dorsalgia, unspecified; W07.XXXA Fall from chair, initial encounter; Z86.718 Personal history of other venous thrombosis and embolism; Z79.1 Long term (current) use of non-steroidal anti-inflammatories (NSAID); Z79.899 Other long term (current) drug therapy; Z88.0 Allergy status to penicillin; Z80.0 Family history of malignant neoplasm of digestive organs; Z80.3 Family history of malignant neoplasm of breast; Z68.23 Body mass index [BMI] 23.0-23.9, adult; Y92.009 Unspecified place in unspecified non-institutional (private) residence as the place of occurrence of the external cause
CPT/HCPCS: 36415; 70450; 71045; 74176; 76705; 80048; 80053; 80320; 81003; 81015; 82150; 83605; 83735; 83880; 84134; 84443; 84484; 85025; 86140; 87040; 87077; 87086; 87186; 87205; 93005; 99284; A9270-GY; G0480; G8978-GP-CK; G8979-GP-CI; J0696; J0744; J1644; J3480

== ENCOUNTER 2018-10-30 01:25 | Emergency (ER) | payer MEDICARE, BC ==
--- NOTE | 2018-10-30 01:42 | ED ---
HPI Chest Pain - HPI Summary HPI Summary: This patient is an 83 year old M brought in by ambulance to [facility] with a chief complaint of bilateral chest pain since 17:00. The patient rates the pain 1/10 in severity. Symptoms aggravated by nothing. Symptoms alleviated by nothing. Patient reports nausea, syncope and SOB. Patient lives at [place]. Patient is a poor historian. - History of Current Complaint Time Seen by Provider: 10/30/18 01:33 Hx Obtained From: Patient, EMS Onset/Duration: Started Hours Ago, Atraumatic, Still Present Timing: Constant, Lasting Hours Initial Severity: Mild Current Severity: Mild Pain Intensity: 1 Pain Scale Used: 0-10 Numeric Chest Pain Location: Left Anterior, Right Anterior Chest Pain Radiates: No Aggravating Factor(s): Nothing Alleviating Factor(s): Nothing Associated Signs and Symptoms: Positive: Chest Pain, Shortness of Breath, Syncope, Nausea - Additional Pertinent History Primary Care Physician: NIC - Allergy/Home Medications Allergies/Adverse Reactions: Allergies Allergy/AdvReac Type Severity Reaction Status Date / Time Penicillins Allergy Rash Verified 06/29/18 17:05 PMH/Surg Hx/FS Hx/Imm Hx Endocrine/Hematology History: Reports: Hx Anticoagulant Therapy Cardiovascular History: Reports: Hx Deep Vein Thrombosis - left leg, Hx Syncope - occasional Denies: Hx Hypertension Respiratory History: Reports: Hx Pneumonia, Hx Seasonal Allergies GI History: Reports: Hx Cirrhosis, Hx Diverticulosis, Other GI Disorders - inguinal and umbilical hernia Musculoskeletal History: Reports: Hx Arthritis, Hx Back Problems - Back pain due to fracture, Hx Orthopedic Injury - Fractured multiple vertebral spines Denies: Hx Bursitis, Hx Congenital Bone Abnormalities, Hx Scoliosis Sensory History: Reports: Hx Cataracts, Hx Contacts or Glasses, 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 Denies: Hx Hearing Aid Opthamlomology History: Reports: Hx Cataracts, Hx Contacts or Glasses Neurological History: Denies: Hx Headaches, Other Neuro Impairments/Disorders Psychiatric History: Reports: Hx Depression - Surgical History Surgery Procedure, Year, and Place: Hernia [id number] Hx Anesthesia Reactions: No Infectious Disease History: No Infectious Disease History: Denies: Traveled Outside the [place] in Last 30 Days - Family History Known Family History: Positive: Cardiac Disease - father, Other - pancreatic CA Negative: Hypertension, Diabetes - Social History Alcohol Use: None Substance Use Type: Reports: None Smoking Status (MU): Never Smoked Tobacco Review of Systems Negative: Fever Positive: Chest Pain Positive: Shortness Of Breath Positive: Nausea Positive: Syncope All Other Systems Reviewed And Are Negative: Yes Physical Exam - Summary Physical Exam Summary: VITAL SIGNS: Reviewed. GENERAL: Patient is an elderly MALE who is lying comfortable in the stretcher. Patient is not in any acute respiratory distress. HEAD AND FACE: No signs of trauma. No ecchymosis, hematomas or skull depressions. No sinus tenderness. EYES: PERRLA, EOMI x 2, No injected conjunctiva, no nystagmus. EARS: Hearing grossly intact. Ear canals and tympanic membranes are within normal limits. MOUTH: Oropharynx within normal limits. NECK: Supple, trachea is midline, no adenopathy, no JVD, no carotid bruit, no c- spine tenderness, neck with full ROM. CHEST: Symmetric, no tenderness at palpation LUNGS: Clear to auscultation bilaterally. No wheezing or crackles. CVS: Regular rate and rhythm, S1 and S2 present, no murmurs or gallops appreciated. ABDOMEN: Soft, non-tender. No signs of distention. No rebound no guarding, and no masses palpated. Bowel sounds are normal. EXTREMITIES: FROM in all major joints, edema in the RLE, no cyanosis or clubbing. NEURO: Alert and oriented x 3. No acute neurological deficits. Speech is normal and follows commands. SKIN: Dry and warm Triage Information Reviewed: Yes Vital Signs On Initial Exam: Initial Vitals Temp Pulse Resp BP Pulse Ox 98.4 F 92 24 112/67 93 10/30/18 01:28 10/30/18 01:28 10/30/18 01:28 10/30/18 01:28 10/30/18 01:28 Vital Signs Reviewed: Yes Diagnostics - Vital Signs Vital Signs Temp Pulse Resp BP Pulse Ox 10/30/18 01:28 98.4 F 92 24 112/67 93 - Laboratory Result Diagrams: 10/30/18 01:55 10/30/18 01:55 Lab Statement: Any lab studies that have been ordered have been reviewed, and results considered in the medical decision making process. - Radiology CXR Radiology Interpretation Completed By: ED Physician - Dr. Thomas, pending official report Summary of Radiographic Findings: no acute process - EKG 01:26 Cardiac Rate: NL - at 88 bpm EKG Rhythm: Sinus Rhythm EKG Comparison: No Significant Change Summary of EKG Findings: sinus rhythm at 88 bpm with LBBB Chest Pain Course/Dx - Course Course Of Treatment: This patient is an 83 year old M brought in by ambulance to [facility] with a chief complaint of bilateral chest pain since 17:00. The patient rates the pain 1/10 in severity. Patient reports nausea, syncope and SOB. An EKG reveals sinus rhythm at 88 bpm with LBBB. No change from previous EKG. CXR reveals, per ED physician, no acute process. Test results with no significant abnormalities. Patient does not have any EKG changes and has 2 negative troponins. Patients chest pain is atypical Patient will be discharged with follow up from PCP. The patient is agreeable with this plan. - Diagnoses Provider Diagnoses: Atypical chest pain Discharge - Sign-Out/Discharge Documenting (check all that apply): Patient Departure - discharge - Discharge Plan Condition: Stable Disposition: HOME Patient Education Materials: Chest Pain (ED) Referrals: Bennie Alexandre MD [Primary Care Provider] - Additional Instructions: Follow up with primary care physician. Return to the emergency department with any new or worsening symptoms. - Attestation Statements Document Initiated by Scribe: Yes Documenting Scribe: Julieta Don Provider For Whom Scribe is Documenting (Include Credential): Kanika Thomas MD Scribe Attestation: Julieta Amaral scribed for Kanika Thomas MD on 10/30/18 at 0509. Status of Scribe Document: Ready
[2018-10-30 02:03] LABS: ABS Basophils 0.1 10^3/ul (0-0.2); ABS Eosinophils 0.1 10^3/ul (0-0.6); ABS Lymphocytes 0.8 10^3/ul (1.0-4.8); ABS Monocytes 0.8 10^3/ul (0-0.8); ABS Nucleated RBC 0 10^3/ul; Eosinophil % 1.1 %; Hematocrit 32 % (42-52); Lymphocyte % 6.6 %; Mean Corpuscular HGB Conc 32 g/dl (31-36); Mean Corpuscular Hemoglobin 29 pg (27-31); Mean Corpuscular Volume 91 fL (80-94); Mean Platelet Volume 8.5 fL (7.4-10.4); Nucleated Red Blood Cells % 0; Platelet Count 237 10^3/ul (150-450); Red Blood Count 3.48 10^6/ul (4.00-5.40); Red Cell Distribution Width 15 % (10.5-15); White Blood Count 11.9 10^3/ul (3.5-10.8)
[2018-10-30 02:11] LABS: Activated Partial Thrombo Time 28.2 seconds (26.0-36.3)
[2018-10-30 02:19] LABS: Albumin 3.4 g/dL (3.2-5.2); BUN/Creatinine Ratio 34.8 (8-20); Calcium 8.6 mg/dL (8.6-10.3); EGFR Non-African American 78.2 (>60); Globulin 3.4 g/dL (2-4); Potassium 4.1 mmol/L (3.5-5.0); Total Bilirubin 0.5 mg/dL (0.2-1.0); Total Protein 6.8 g/dL (6.4-8.9)
[2018-10-30 02:48] LABS: TSH (Thyroid Stimulating Horm) 7.16 mcIU/mL (0.34-5.60)
[2018-10-30 06:14] VITALS: BP 110/65
== END 2018-10-30 06:13 | disposition home or self-care (01) ==
LOC: ED 01:25
DX: R07.89 Other chest pain (principal); R06.02 Shortness of breath; R55 Syncope and collapse; R11.0 Nausea; Z88.0 Allergy status to penicillin; Z79.01 Long term (current) use of anticoagulants; Z86.718 Personal history of other venous thrombosis and embolism
CPT/HCPCS: 36415; 71045; 80053; 83605; 83735; 83880; 84443; 84484; 85025; 85610; 85730; 93005; 99284

== ENCOUNTER 2019-08-28 22:28 | Emergency (ER) | payer BC, MEDICARE ==
--- NOTE | 2019-08-28 22:35 | ED ---
HPI Chest Pain - HPI Summary HPI Summary: Patient complains of sudden onset right-sided chest pain starting around 8 PM. Does not remember what he was doing at the time. Chest pain described as constant, no radiation, no diaphoresis, no nausea. Denies trauma, SOB. Denies fever, cough, sore throat, N/V/D, abdominal pain, change in urine, change in BM , peripheral edema. Medical history is SBO, anemia, DVT 1. Patient not currently taking anticoagulation per primary care. - History of Current Complaint Hx Obtained From: Patient Onset/Duration: Started Hours Ago Timing: Constant Initial Severity: Moderate Current Severity: Moderate Pain Intensity: 6 Pain Scale Used: 0-10 Numeric Chest Pain Location: Right Anterior Chest Pain Radiates: No Character: Dull/Aching Aggravating Factor(s): Movement Associated Signs and Symptoms: Positive: Negative - Risk Factors Pulmonary Embolism Risk Factors: DVT - Additional Pertinent History Primary Care Physician: NIC - Allergy/Home Medications Allergies/Adverse Reactions: Allergies Allergy/AdvReac Type Severity Reaction Status Date / Time Penicillins Allergy Rash Verified 04/17/19 11:23 PMH/Surg Hx/FS Hx/Imm Hx Endocrine/Hematology History: Reports: Hx Anticoagulant Therapy Cardiovascular History: Reports: Hx Deep Vein Thrombosis - left leg, Hx Syncope - occasional Denies: Hx Hypertension Respiratory History: Reports: Hx Pneumonia, Hx Seasonal Allergies GI History: Reports: Hx Cirrhosis, Hx Diverticulosis, Other GI Disorders - inguinal and umbilical hernia Musculoskeletal History: Reports: Hx Arthritis, Hx Back Problems - Back pain due to fracture, Hx Orthopedic Injury - Fractured multiple vertebral spines, Hx Osteoporosis Denies: Hx Bursitis, Hx Congenital Bone Abnormalities, Hx Scoliosis Sensory History: Reports: Hx Cataracts, Hx Contacts or Glasses, 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 Denies: Hx Hearing Aid Opthamlomology History: Reports: Hx Cataracts, Hx Contacts or Glasses EENT History: Denies: Hx Deafness Neurological History: Denies: Hx Headaches, Other Neuro Impairments/Disorders Psychiatric History: Reports: Hx Depression - Surgical History Surgery Procedure, Year, and Place: Hernia [id number] Hx Anesthesia Reactions: No Infectious Disease History: No Infectious Disease History: Denies: Traveled Outside the [place] in Last 30 Days - Family History Known Family History: Positive: Cardiac Disease - father, Other - pancreatic CA Negative: Hypertension, Diabetes - Social History Alcohol Use: None Substance Use Type: Reports: None Smoking Status (MU): Never Smoked Tobacco Review of Systems Constitutional: Negative Eyes: Negative ENT: Negative Positive: Chest Pain Respiratory: Negative Gastrointestinal: Negative Genitourinary: Negative Musculoskeletal: Negative Skin: Negative Neurological: Negative Psychological: Normal All Other Systems Reviewed And Are Negative: Yes Physical Exam - Summary Physical Exam Summary: Chest pain very reproducible with palpation and with movement of arm. Patient winces significantly with pressure on right side chest. No pain with palpation of the center core left-sided chest. Lung sounds clear to auscultation bilaterally. RRR. Triage Information Reviewed: Yes Vital Signs On Initial Exam: Initial Vitals Temp Pulse Resp BP Pulse Ox 98.9 F 84 16 137/87 96 08/28/19 22:31 08/28/19 22:31 08/28/19 22:31 08/28/19 22:31 08/28/19 22:31 Vital Signs Reviewed: Yes Appearance: Positive: Well-Appearing Skin: Positive: Warm Head/Face: Positive: Normal Head/Face Inspection Eyes: Positive: Normal Neck: Positive: Supple Respiratory/Lung Sounds: Positive: Clear to Auscultation Cardiovascular: Positive: Normal Abdomen Description: Positive: Nontender Musculoskeletal: Positive: Normal Neurological: Positive: Normal Psychiatric: Positive: Normal AVPU Assessment: Alert - [place] Coma Scale Best Eye Response: 4 - Spontaneous Best Motor Response: 6 - Obeys Commands Best Verbal Response: 5 - Oriented Coma Scale Total: 15 Procedures - Sedation Patient Received Moderate/Deep Sedation with Procedure: No Diagnostics - Vital Signs Vital Signs Temp Pulse Resp BP Pulse Ox 08/28/19 22:31 98.9 F 84 16 137/87 96 - Laboratory Result Diagrams: 08/28/19 23:41 08/28/19 22:48 Lab Statement: Any lab studies that have been ordered have been reviewed, and results considered in the medical decision making process. Chest Pain Course/Dx - Course Course Of Treatment: Patient complains of sudden onset right-sided chest pain starting around 8 PM. Does not remember what he was doing at the time. Chest pain described as constant, no radiation, no diaphoresis, no nausea. Denies trauma, SOB. Denies fever, cough, sore throat, N/V/D, abdominal pain, change in urine, change in BM, peripheral edema. Medical history is SBO, anemia, DVT 1. Patient not currently taking anticoagulation per primary care. Vital signs within normal limits. Hemoglobin 11.6 is patient baseline. Labs otherwise unremarkable. EKG sinus rhythm with heart rate of 82, normal P axis. Chest x- ray negative for acute process. Serial troponins negative. Symptoms consistent with chest wall pain. - Diagnoses Provider Diagnoses: Chest wall pain Discharge ED - Sign-Out/Discharge Documenting (check all that apply): Patient Departure - Discharge Plan Condition: Stable Disposition: HOME Patient Education Materials: Chest Wall Pain (ED) Referrals: Bennie Alexandre MD [Primary Care Provider] - Additional Instructions: Take Tylenol every 4 hours as needed for chest wall pain. Follow-up with primary care. - Billing Disposition and Condition Condition: STABLE Disposition: Home
[2019-08-28 23:03] LABS: INR 1.04 (0.82-1.09)
[2019-08-28 23:11] LABS: Albumin 3.7 g/dL (3.2-5.2); Albumin/Globulin Ratio 1.1 (1-3); BUN/Creatinine Ratio 26.5 (8-20); C Reactive Protein 18.04 mg/L (<8.01); Calcium 8.7 mg/dL (8.6-10.3); EGFR African American 106.3 (>60); EGFR Non-African American 87.8 (>60); Globulin 3.3 g/dL (2-4); Magnesium 2.2 mg/dL (1.9-2.7); Potassium 4.2 mmol/L (3.5-5.0); Total Bilirubin 0.3 mg/dL (0.2-1.0)
--- OUTSIDE RECORDS SUMMARY | 2019-08-28 23:14 | XMS REPORT | Continuity of Care Document ---
:1935 External Reference #:[id number] Author Name Bennie Alexandre M.D. (transmitted by agent of provider Namita Hadley) Address [address], [address] [place] [id number] Care Team Providers Name Role Phone Bennie Alexandre III, MD - Internal Care Team Information Mine Expert [phone] Medicine Problems Active Problems Provider Date Low back pain Kaz Crump M.D. Onset: 01/12/2016 Constipation Kaz Crump M.D. Onset: 01/12/2016 Erythematous condition Kaz Crump M.D. Onset: 11/15/2016 Swelling of lower leg Kristie Lee M.D. Onset: 08/21/2017 Dizziness and giddiness La Nena Kirkland DO Onset: 06/29/2018 Low blood pressure Vivienne Wallace N.P. Onset: 07/06/2018 Benign prostatic hyperplasia with Mesfin Schultz M.D.,FACP Onset: 2017 lower urinary tract symptoms Backache Tobin Chapman M.D. Onset: 07/01/2018 Acidosis Jennyfer Howell M.D. Onset: 06/30/2018 Urinary tract infectious disease Jennyfer Howell M.D. Onset: 06/30/2018 Fall from chair, initial encounter La Nena Kirkland DO Onset: 06/29/2018 Sepsis, unspecified organism La Nena Kirkland DO Onset: 06/29/2018 Social History Type Date Description Comments Sex Unknown ETOH Use Denies alcohol use Tobacco Use Start: Unknown Patient has never smoked Recreational Drug Use Denies Drug Use Smoking Status Reviewed: 08/24/19 Patient has never smoked Exercise Type/Frequency Exercises sporadically Pt was walking 1 mile 3 times a week weather permitting prior to current back pains Allergies, Adverse Reactions, Alerts Active Allergies Reaction Severity Comments Date Penicillin 12/11/2015 Medications Active Medications SIG Qnty Indications Ordering Date Provider Famotidine 1 tab by mouth 90tabs Bennie E. 08/16/2019 20mg twice a day Walter Alexandre Tablets Wheelchair Cushion One Gel cushion for 1units Bennie E. 08/09/2019 daily use in Walter Alexandre [facility] wheechair Vitamin C Take 1 Tablet By 30tabs Bennie E. 04/26/2019 1000mg Mouth Every Morning Walter Alexandre Tablets Levothyroxine Sodium Take 1 Tablet By 30tabs Bennie E. 12/03/2018 Mouth Daily Walter Alexandre 25mcg Tablets Fish Oil 1 tab by mouth 90caps Bennie E. 11/10/2018 1000mg every morning Walter Alexandre Capsules Nystatin twice a day up to 1units Bennie E. 10/22/2018 two weeks Walter Alexandre [id number] Cream Vitamin D-3 1 by mouth every 30caps Bennie E. 10/12/2018 1000Unit day Walter Alexandre Capsules Midodrine HCL Take 1 Tablet By 60tabs Bennie E. 10/12/2018 5mg Mouth 2 Times Daily Walter Alexandre Tablets Finasteride take 1 tablet by 30tabs Bennie E. 10/12/2018 5mg mouth daily for Walter Alexandre Tablets enlarged prostate without lower urinary tract infection symtoms Ranitidine HCL Take 1 Tablet By 42tabs Bennie E. 10/12/2018 150mg Mouth 2 Times Daily Walter Alexandre Tablets DX: GERD QC Natural Vegetable Take 2 Tablets By 14tabs Bennie E. 10/12/2018 Laxative Mouth Daily For Walter Alexandre 8.6mg Constipation Tablets Vitamin B12 1 by mouth every 90tabs Bennie E. 10/12/2018 100mcg day Walter Alexandre Tablets Commode Pail With over toilet Bennie Bertrand. 10/07/2018 Handle/Lid/12QT [facility] Preparation H apply to external 60gm Bennie E. 09/23/2018 5-14.4% rectal area four Walter Alexandre Cream times a day as needed Tylenol Extra take 2 tabs every 6 120tabs M54.5 Bennie Smith 01/12/2016 Strength hours as needed for Walter Alexandre 500mg pain Tablets Tramadol HCL 1 tab by mouth 120tabs M80.88xA Bennie Smith 12/29/2015 50mg every 6 hours Walter Alexandre Tablets M54.5 Preservision Areds 2 take 1 by mouth 60caps Bennie Alexandre, Areds 2 twice a day M.DShawnee Capsules History Medications Famotidine take 1 tab by mouth Bennie Alexandre, 08/16/2019 - 20mg/2ML every morning. M.D. 08/16/2019 Solution Medications Administered in Office Medication SIG Qnty Indications Ordering Provider Date Inj, Regadenoson, 0.1 MG Roge Cisneros, DO [facility] 12/26/2015 Injection Technetium TC 99M Roge Cisneros, DO [facility] 12/26/2015 Tetrofosmin, Per Unit Dose Up To 40 Millicuries Injection Pneumococcal,Unspecified Unknown 07/24/1996 Injection Immunizations CPT Code Status Date Vaccine Lot # [id number] Refused 08/21/2017 Influenza Virus Vaccine, Quadrivalent, Split, Preservative Free Vital Signs Date Vital Result Comment 08/24/2019 10:30am Height 65.75 inches 5'5.75" Weight 220.00 lb Heart Rate 94 /min BP Systolic Sitting 127 mmHg BP Diastolic Sitting 78 mmHg BMI (Body Mass Index) 35.8 kg/m2 04/22/2019 4:39pm Height 65.75 inches 5'5.75" Weight 235.00 lb including wheelchair Heart Rate 79 /min BP Systolic Sitting 136 mmHg BP Diastolic Sitting 83 mmHg Body Temperature 97.8 F O2 % BldC Oximetry 99 % BMI (Body Mass Index) 38.2 kg/m2 Results Test Acquired Date Facility Test Result H/L Range Note CBC Auto 04/17/2019 [facility] White Blood 6.2 10^3/uL Normal 3.5-10.[address] [place] [address] [phone] Red Blood Count 3.74 10^6/uL Low 4.18-5.48 Hemoglobin 11.4 g/dL Low 14.0-18.0 Hematocrit 35 % Low 42-52 Mean Corpuscular Volume 92 fL Normal 80-94 Mean Corpuscular Hemoglobin 31 pg Normal 27-31 Mean Corpuscular HGB Conc 33 g/dL Normal 31-36 Red Cell Distribution Width 17 % High 10-15 Platelet Count 190 10^3/uL Normal 150-450 Mean Platelet Volume 8.4 fL Normal 7.4-10.4 Abs Neutrophils 4.1 10^3/uL Normal 1.5-7.7 Abs Lymphocytes 1.0 10^3/uL Normal 1.0-4.8 Abs Monocytes 0.7 10^3/uL Normal 0-0.8 Abs Eosinophils 0.3 10^3/uL Normal 0-0.6 Abs Basophils 0.1 10^3/uL Normal 0-0.2 Abs Nucleated RBC 0.0 10^3/uL Granulocyte % 66.4 % Lymphocyte % 15.9 % Monocyte % 11.3 % Eosinophil % 5.4 % Basophil % 1.0 % Nucleated Red Blood Cells % 0.0 Comp Metabolic 04/17/2019 [facility] Sodium 139 mmol/L Normal 135-[address] [place] [address] [phone] Potassium 4.1 mmol/L Normal 3.5-5.0 Chloride 105 mmol/L Normal 101-111 Co2 Carbon Dioxide 30 mmol/L Normal 22-32 Anion Gap 4 mmol/L Normal 2-11 Glucose 98 mg/dL Normal 70-100 Blood Urea Nitrogen 15 mg/dL Normal 6-24 Creatinine 0.89 mg/dL Normal 0.67-1.17 BUN/Creatinine Ratio 16.9 Normal 8-20 Calcium 8.4 mg/dL Low 8.6-10.3 Total Protein 6.3 g/dL Low 6.4-8.9 Albumin 3.4 g/dL Normal 3.2-5.2 Globulin 2.9 g/dL Normal 2-4 Albumin/Globulin Ratio 1.2 Normal 1-3 Total Bilirubin 0.40 mg/dL Normal 0.2-1.0 Alkaline Phosphatase 61 U/L Normal 34-104 Alt 9 U/L Normal 7-52 Ast 14 U/L Normal 13-39 Egfr Non- 81.2 >60 Egfr 98.3 >60 1 Type & Screen 04/17/2019 [facility] Patient Blood Type B Positive [address] [place], [place] [id number] [phone] Antibody Screen NEGATIVE Inr/Protime 04/17/2019 [facility] Inr 1.03 Normal 0.82-1.[address] [place], [place] [id number] [phone] Laboratory test 04/17/2019 [facility] Partial 30.5 Normal 26.0 -38.[address] [place] [address] Time PTT [phone] 1 Because ethnic data is not always readily available, this report includes an eGFR for both -Americans and non- Americans. The National Kidney Disease Education Program (NKDEP) does not endorse the use of the MDRD equation for patients that are not between the ages of 18 and 70, are , have extremes of body size, muscle mass, or nutritional status, or are non- or non-. According to the National Kidney Foundation, irrespective of diagnosis, the stage of the disease is based on the level of kidney function: Stage Description GFR(mL/min/1.73 m(2)) 1 Kidney damage with normal or decreased GFR 90 2 Kidney damage with mild decrease in GFR 60-89 3 Moderate decrease in GFR 30-59 4 Severe decrease in GFR 15-29 5 Kidney failure <15 (or dialysis) 2 Standard intensity warfarin therapeutic range: 2.0-3.0 High intensity warfarin therapeutic range: 2.5-3.5 Procedures Description No Information Available Medical Devices Description No Information Available Encounters Type Date Location Provider Dx Diagnosis Office Visit 04/22/2019 [facility] Bennie Alexandre, K64.9 Unspecified 4:00p Medicine - Avinash Watson hemorrhoids R26.89 Other abnormalities of gait and mobility Assessments Date Code Description Provider 08/24/2019 Z00.00 Encounter for general adult medical Bennie Alexandre M.D. examination without abnormal findings 08/24/2019 E03.9 Hypothyroidism, unspecified Bennie Alexandre M.D. 08/24/2019 D64.9 Anemia, unspecified Bennie Alexandre M.D. 08/24/2019 N40.1 Benign prostatic hyperplasia with lower Bennie Alexandre M.D. urinary tract sympto 08/24/2019 M81.0 Age-related osteoporosis without current Bennie Alexandre M.D. pathological fractu 08/24/2019 K21.9 Gastro-esophageal reflux disease without Bennie Alexandre M.D. esophagitis 04/22/2019 K64.9 Unspecified hemorrhoids Bennie Alexandre M.D. 04/22/2019 R26.89 Other abnormalities of gait and mobility Bennie Alexandre M.D. Plan of Treatment Future Appointment(s):09/23/2019 3:00 pm - Bennie Alexandre M.D. at [facility]08/24/2019 - Bennie Alexandre M.D.Z00.00 Encounter for general adult medical examination without abnormal findingsComments:Pt again declines vaccinations. (+) dental, eye exams; no hearing problems. PT eval for general conditioning advisedFollow up:1 month for mini mental status examE03.9 Hypothyroidism, unspecifiedComments:On Rx; recheck labsD64.9 Anemia, unspecifiedComments:Improved with Hgb of 11.4 with April labs; no GI sxN40.1 Benign prostatic hyperplasia with lower urinary tract symptoComments:No voiding [id number] Age-related osteoporosis without current pathological fractuNew Therapy:Physical TherapyComments:Pt again declines Rx; no back pain sx at present. PT eval advised for conditioning as rgomwH22.9 Gastro-esophageal reflux disease without esophagitisComments:No sx on Rx; pt switching to Famotidine due to Ranitidine recall Functional Status Description No Information Available Mental Status Description No Information Available Referrals Description No Information Available
[2019-08-28 23:33] LABS: TSH (Thyroid Stimulating Horm) 5.5 mcIU/mL (0.34-5.60)
[2019-08-28 23:45] LABS: ABS Basophils 0.1 10^3/ul (0-0.2); ABS Eosinophils 0.3 10^3/ul (0-0.6); ABS Lymphocytes 1.2 10^3/ul (1.0-4.8); ABS Monocytes 1.1 10^3/ul (0-0.8); ABS Neutrophils 5.5 10^3/ul (1.5-7.7); Eosinophil % 3.3 %; Hematocrit 35 % (42-52); Hemoglobin 11.6 g/dL (14.0-18.0); Lymphocyte % 14.4 %; Mean Corpuscular HGB Conc 33 g/dL (31-36); Mean Corpuscular Hemoglobin 30 pg (27-31); Mean Corpuscular Volume 91 fL (80-94); Mean Platelet Volume 8.4 fL (7.4-10.4); Nucleated Red Blood Cells % 0.1; Platelet Count 206 10^3/uL (150-450); Red Blood Count 3.87 10^6 /uL (4.18-5.48); Red Cell Distribution Width 17 % (10-15); White Blood Count 8.1 10^3/uL (3.5-10.8)
[2019-08-28 23:52] LABS: Troponin I 0.01 ng/mL (<0.04)
[2019-08-29 03:02] VITALS: BP 124/62
== END 2019-08-29 02:48 | disposition home or self-care (01) ==
LOC: ED 22:28
DX: R07.89 Other chest pain (principal); Z88.0 Allergy status to penicillin; Z79.01 Long term (current) use of anticoagulants; Z86.718 Personal history of other venous thrombosis and embolism; F32.9 Major depressive disorder, single episode, unspecified
CPT/HCPCS: 36415; 71046; 80053; 83735; 84443; 84484; 85025; 85610; 86140; 93005; 99284

== ENCOUNTER 2019-11-30 22:33 | Inpatient (IN) | payer MEDICARE ==
--- OUTSIDE RECORDS SUMMARY | 2019-11-30 23:15 | XMS REPORT ---
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, impairment, [id number] so stated so stated Hypotension Hypotension Diagnosis Active Avis , , 10-13 Bacon unspecified unspecified [id number] Low back Low back Diagnosis Active Avis pain pain 10-13 Bacon [id number] Benign Benign Diagnosis Active 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 hyperplasia hyperplasia [id number] with lower with lower urinary urinary tract tract symptoms symptoms Constipatio Constipatio Diagnosis Active Avis n, n, 10-13 Bacon unspecified unspecified [id number] Dizziness Dizziness Diagnosis Active Avis and and Bacon giddiness giddiness [id number] Personal Personal Diagnosis Active Avis history of history of Bacon urinary urinary [id number] (tract) (tract) infections infections History of History of Diagnosis Active Avis falling falling Bacon [id number] Pain frequent Pain Mgmt Resolve 2018-102019-11-19 Carol pain d 2-18 09:53:00 (Chanel) 10:50: Kurtis 00 [id number] Cardio edema Cardiovasc Resolve 2018-102019-11-19 Carol ular d 2-18 09:53:00 (Chanel) 10:50: Kurtis 00 [id number] Respiratory dyspnea Respirator Resolve 2018-102019-11-19 Carol present y d 2-18 09:53:00 (Chanel) 10:50: Kurtis 00 [id number] Endo/Jermaine anti-coagul Endo/Jermaine Resolve 2018-102019-11-19 Carol ation d 2-18 09:53:00 (Chanel) therapy 10:50: Kurtis [id number] Sensory impaired Sensory Resolve 2018-102019-11-19 Carol hearing d 2-18 09:53:00 (Chanel) 10:50: [place] [id number] Integument pressure Integument Resolve 2018-102019-11-19 Carol ulcer d 2-18 09:53:00 (Chanel) present 10:50: [place] [id number] Integument skin Integument Resolve 2018-102019-11-19 Carol integrity d 2-18 09:53:00 (Chanel) risk 10:50: Kurtis [id number] Elimination urinary Eliminatio Resolve 2018-102019-11-19 Carol incontinenc n d 2-18 09:53:00 (Chanel) e 10:50: Kurtis 00 [id number] Neuro confusion Neuro/Emot Resolve 2018-102019-11-19 Carol present ion d 2-18 09:53:00 (Chanel) 10:50: Kurtis [id number] Neuro impaired Neuro/Emot Resolve 2018-102019-11-19 Carol decision-ma ion d 2-18 09:53:00 (Chanel) savana 10:50: [place] [id number] Neuro memory Neuro/Emot Resolve 2018-102019-11-19 Carol deficit ion d 2-18 09:53:00 (Chanel) needing 10:50: Kurtis supervision 00 [id number] Activity ADL Activity Resolve 2018-102019-11-19 Carol assistance d 2-18 09:53:00 (Chanel) required 10:50: [place] [id number] Activity self-care Activity Resolve 2018-102019-11-19 Carol deficit d 2-18 09:53:00 (Chanel) 10:50: Kurtis [id number] Safety fall risk Safety Resolve 2018-102019-11-19 Carol factor d 2-18 09:53:00 (Chanel) present 10:50: Kurtis [id number] Safety knowledge/s Safety Resolve 2018-102019-11-19 QUALITY kill d 2-18 09:53:00 REALTIME deficit: pt 10:50: 00 Safety cannot be Safety Resolve 2018-102019-11-19 Carol left alone d 2-18 09:53:00 (Chanel) 10:50: [place] 00 [id number] Safety risk for Safety Resolve 2018-102019-11-19 Carol hospitaliza d 2-18 09:53:00 (Chanel) tion 10:50: [place] 00 [id number] Medication oral med Meds Resolve 2018-102019-11-19 Carol assistance d 2-18 09:53:00 (Chanel) required 10:50: [place] 00 [id number] Musculoskel transfer Musculoske Resolve 2018-102019-11-19 Carol etal assistance letal d 2-18 09:53:00 (Chanel) required 10:50: [place] 00 [id number] Musculoskel requires Musculoske Resolve 2018-102019-11-19 Carol etal human letal d 2-18 09:53:00 (Chanel) assist to 10:50: [place] leave home 00 [id number] Nutrition nutritional Nutrition Resolve 2018-102019-11-19 Avis restriction d 2-18 09:53:00 Bacon s 13:25: [id number] Bed transfer PT/OT: Bed Resolve 2018-102019-11-19 Avis Mobility/Tr deficit: Mobility/T d 2-18 09:53:00 Baconmohan segurafer sit/stand ransfer 13:25: [id number] Bed transfer PT/OT: Bed Resolve 2018-102019-11-19 Avis Mobility/Tr deficit: Mobility/T d 2-18 09:53:00 Jordi merino standing ransfer 13:25: [id number] pivot 00 Bed transfer PT/OT: Bed Resolve 2018-102019-11-19 Avis Mobility/Tr deficit: Mobility/T d 2-18 09:53:00 Jordi segurafer toilet/comm ransfer 13:25: [id number] ode 00 Bed knowledge/s PT/OT: Bed Resolve 2018-102019-11-19 Avis Mobility/Tr kill Mobility/T d 2-18 09:53:00 Bacon ansfer deficit: pt ransfer 13:25: [id number] Bed bed PT/OT: Bed Resolve 2018-102019-11-19 Avis Mobility/Tr mobility Mobility/T d 11-30 09:53:00 Bacon ansfer deficit ransfer 13:25: [id number] Balance/End balance/tenant coordinator PT/OT: Resolve 2018-102019-11-19 Avis maldonado rdination Balance/En d 11-30 09:53:00 Bacon deficit durance 13:25: [id number] Balance/End endurance PT/OT: Resolve 2018-102019-11-19 Avis urance deficit Balance/En d 11-30 09:53:00 Bacon durance 13:25: [id number] Balance/End knowledge/s PT/OT: Resolve 2018-102019-11-19 Avis maldonado kill Balance/En d 11-30 09:53:00 Bacon deficit: pt durance 13:25: [id number] Gait/Locomo gait PT/OT: Resolve 2018-102019-11-19 Avis tion deficit Gait/Locom d 2-18 09:53:00 Bacon problems otion 13:25: [id number] Gait/Locomo knowledge/s PT/OT: Resolve 2018-102019-11-19 Avis tion kill Gait/Locom d 2 09:53:00 Bacon problems deficit: pt otion 13:25: [id number] Allergies, Adverse Reactions, Alerts Allergy Name Allergy Status Severity Reaction(s) Onset Inactive Treating Comments Type Date Date Clinician Penicillins Allergen Active Unknown Reaction Alison Beam Group Unknown 9-19 Medications Ordered Filled Start Stop Current Ordering Indication Dosage Frequency Signature Comments Components Medication Medication Date Date Medication? Clinician (SIG) Name Name acetaminoph acetaminoph 2019- No Bettie Unknown Unknown en 500 mg en 500 mg 11-19 Bennie WALLACE tablet tablet cholecalcif cholecalcif No Bettie Unknown Unknown amxx maxx 11-19 Bennie WALLACE (vitamin (vitamin D3) 1,000 D3) 1,000 unit unit capsule capsule cyanocobala cyanocobala No Bettie Unknown Unknown min min 11-19 Bennie WALLACE (vitamin (vitamin B-12) 1,000 B-12) 1,000 mcg capsule mcg capsule finasteride finasteride 2020- No Bettie Unknown Unknown 5 mg tablet 5 mg tablet 11-19 Bennie WALLACE midodrine 5 midodrine 5 2019- No Bettie Unknown Unknown mg tablet mg tablet 11-19 Bennie WALLACE omega omega 2019- No Bettie Unknown Unknown 3-dha-epa-f 3-dha-epa-f 11-19 Bennie WALLACE tammy oil tammy oil 1,000 mg 1,000 mg (120 mg-180 (120 mg-180 mg) capsule mg) capsule PreserVisio PreserVisio 2019- No Bettie Unknown Unknown n AREDS-2 n AREDS-2 11-19 Bennie WALLACE 250 mg-200 250 mg-200 unit-40 unit-40 mg-1 mg mg-1 mg capsule capsule senna 8.6 senna 8.6 2019- No Bettie Unknown Unknown mg tablet mg tablet 11-19 Bennie WALLACE traMADol 50 traMADol 50 2019- No Bettie Unknown Unknown mg tablet mg tablet 11-19 Bennie WALLACE famotidine famotidine 2018-10- Yes Bettie Unknown Unknown 20 mg 20 mg 11-30 Bennie WALLACE tablet tablet ascorbic ascorbic 2018-10- Yes Bettie Unknown Unknown acid acid 11-30 Bennie WALLACE (vitamin C) (vitamin C) 1,000 mg 1,000 mg tablet tablet levothyroxi levothyroxi 2018-10- Yes Bettie Unknown Unknown ne 25 mcg ne 25 mcg 11-30 Bennie WALLACE tablet tablet Fish Oil Fish Oil 2018-10- Yes Bettie Unknown Unknown 100 mg-160 100 mg-160 11-30 Bennie WALLACE mg-1,000 mg mg-1,000 mg capsule capsule Vitamin D3 Vitamin D3 2018-10- Yes Bettie Unknown Unknown 1,000 unit 1,000 unit 11-30 Bennie WALLACE capsule capsule midodrine 5 midodrine 5 2018-10- Yes Bettie Unknown Unknown mg tablet mg tablet 11-30 Bennie WALLACE finasteride finasteride 2018-10- Yes Bettie Unknown Unknown 5 mg tablet 5 mg tablet 11-30 Bennie WALLACE cyanocobala cyanocobala 2018-10- Yes Bettie Unknown Unknown min (vit min (vit 11-30 Bennie WALLACE B-12) 1,000 B-12) 1,000 mcg tablet mcg tablet Acetaminoph Acetaminoph 2018-10- Yes Bettie Unknown Unknown en Pain en Pain 11-30 Bennie WALLACE Relief 500 Relief 500 mg tablet mg tablet traMADol 50 traMADol 50 2018-10- Yes Bettie Unknown Unknown mg tablet mg tablet 11-30 Bennie WALLACE PreserVisio PreserVisio 2018-10- Yes Bettie Unknown Unknown n AREDS-2 n AREDS-2 11-30 Bennie WALLACE 250 mg-200 250 mg-200 unit-40 unit-40 mg-1 mg mg-1 mg capsule capsule Vital Signs Vital Name Observation Time Observation Value Comments SYSTOLIC mm[Hg] 2019-11-19 18:10:16 105 mm[Hg] mm[Hg] Method: Sit SYSTOLIC mm[Hg] 2019-10-03 18:09:29 118 mm[Hg] mm[Hg] Method: Stand DIASTOLIC mm[Hg] 2019-11-19 18:10:16 60 mm[Hg] mm[Hg] Method: Sit DIASTOLIC mm[Hg] 2019-10-03 18:09:29 80 mm[Hg] mm[Hg] Method: Stand PULSE 2019-11-19 18:10:16 92 /min /min TEMP 2019-11-19 18:10:16 98.7 [degF] Procedures This patient has no known procedures. Results This patient has no known results.
--- OUTSIDE RECORDS SUMMARY | 2019-11-30 23:15 | XMS REPORT ---
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, impairment, [id number] so stated so stated Hypotension Hypotension Diagnosis Active Avis , , 10-13 Bacon unspecified unspecified [id number] Low back Low back Diagnosis Active Avis pain pain 10-13 Bacon [id number] Benign Benign Diagnosis Active 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 hyperplasia hyperplasia [id number] with lower with lower urinary urinary tract tract symptoms symptoms Constipatio Constipatio Diagnosis Active Avis n, n, 10-13 Bacon unspecified unspecified [id number] Dizziness Dizziness Diagnosis Active Avis and and Bacon giddiness giddiness [id number] Personal Personal Diagnosis Active Avis history of history of Bacon urinary urinary [id number] (tract) (tract) infections infections History of History of Diagnosis Active Avis falling falling Bacon [id number] Pain frequent Pain Mgmt Active 2018-10 Carol pain 2-18 (Chanel) 10:50: Kurtis 00 [id number] Cardio edema Cardiovasc Active 2018-10 Carol ular 2-18 (Chanel) 10:50: Kurtis 00 [id number] Respiratory dyspnea Respirator Active 2018-10 Carol present y 2-18 (Chanel) 10:50: Kurtis 00 [id number] Endo/Jermaine anti-coagul Endo/Jermaine Active 2018-10 Carol ation 2-18 (Chanel) therapy 10:50: [place] [id number] Sensory impaired Sensory Active 2018- Carol hearing 2-18 (Chanel) 10:50: [place] [id number] Integument pressure Integument Active 2019- Carol ulcer 2-18 (Chanel) present 10:50: [place] [id number] Integument skin Integument Active 2018-10 Carol integrity 2-18 (Chanel) risk 10:50: [place] [id number] Elimination urinary Eliminatio Active 2018-10 Carol incontinenc n 2-18 (Chanel) e 10:50: [place] [id number] Neuro confusion Neuro/Emot Active 2018-10 Carol present ion 2-18 (Chanel) 10:50: [place] [id number] Neuro impaired Neuro/Emot Active 2018-10 Carol decision-ma ion 2-18 (Chanel) savana 10:50: [place] [id number] Neuro memory Neuro/Emot Active 2018-10 Carol deficit ion 2-18 (Chanel) needing 10:50: [place] supervision 00 [id number] Activity ADL Activity Active 2018-10 Carol assistance 2-18 (Chanel) required 10:50: [place] [id number] Activity self-care Activity Active 2018-10 Carol deficit 2-18 (Chanel) 10:50: [place] [id number] Safety fall risk Safety Active 2018- Carol factor 2-18 (Chanel) present 10:50: [place] [id number] Safety knowledge/s Safety Active 2018- QUALITY kill 2-18 REALTIME deficit: pt 10:50: 00 Safety cannot be Safety Active 2019- Carol left alone 2-18 (Chanel) 10:50: [place] [id number] Safety risk for Safety Active 2019- Carol hospitaliza 2-18 (Chanel) tion 10:50: [place] [id number] Medication oral med Meds Active 2018- Carol assistance 2-18 (Chanel) required 10:50: [place] 00 [id number] Musculoskel transfer Musculoske Active 2018-10 Carol etal assistance letal 2-18 (Chanel) required 10:50: [place] [id number] Musculoskel requires Musculoske Active 2018-10 Carol etal human letal 2-18 (Chanel) assist to 10:50: [place] leave home 00 [id number] Nutrition nutritional Nutrition Active 2018-10 Avis restriction 2-18 Bacon s 13:25: [id number] Bed transfer PT/OT: Bed Active 2018-10 Avis Mobility/Tr deficit: Mobility/T 2-18 Bacon ansfer sit/stand ransfer 13:25: [id number] Bed transfer PT/OT: Bed Active 2018-10 Avis Mobility/Tr deficit: Mobility/T 2-18 Bacon ansfer standing ransfer 13:25: [id number] pivot 00 Bed transfer PT/OT: Bed Active 2018-10 Avis Mobility/Tr deficit: Mobility/T 2-18 Bacon ansfer toilet/comm ransfer 13:25: [id number] ode 00 Bed knowledge/s PT/OT: Bed Active 2018-10 Avis Mobility/Tr kill Mobility/T 2-18 Bacon ansfer deficit: pt ransfer 13:25: [id number] Bed bed PT/OT: Bed Active 2018-10 Avis Mobility/Tr mobility Mobility/T 2-18 Bacon ansfer deficit ransfer 13:25: [id number] Balance/End balance/cookie breaker PT/OT: Active 2018-10 Avis urance rdination Balance/En 2-18 Bacon deficit durance 13:25: [id number] Balance/End endurance PT/OT: Active 2018-10 Avis urance deficit Balance/En 2-18 Bacon durance 13:25: [id number] Balance/End knowledge/s PT/OT: Active 2018-10 Avis urance kill Balance/En 2-18 Bacon deficit: pt durance 13:25: [id number] Gait/Locomo gait PT/OT: Active 2018-10 Avis tion deficit Gait/Locom 2-18 Bacon problems otion 13:25: [id number] Gait/Locomo knowledge/s PT/OT: Active 2018-10 Avis tion kill Gait/Locom 2-18 Bacon problems deficit: pt otion 13:25: [id number] 00 Allergies, Adverse Reactions, Alerts Allergy Name Allergy Status Severity Reaction(s) Onset Inactive Treating Comments Type Date Date Clinician Penicillins Allergen Active Unknown Reaction Alison Beam Group Unknown 9- Medications Ordered Filled Start Stop Current Ordering Indication Dosage Frequency Signature Comments Components Medication Medication Date Date Medication? Clinician (SIG) Name Name acetaminoph acetaminoph No Bettie Unknown Unknown en 500 mg en 500 mg Bennie WALLACE tablet tablet cholecalcif cholecalcif No Bettie Unknown Unknown Bennie smith MD (vitamin (vitamin D3) 1,000 D3) 1,000 unit unit capsule capsule cyanocobala cyanocobala No Bettie Unknown Unknown min min Bennie WALLACE (vitamin (vitamin B-12) 1,000 B-12) 1,000 mcg capsule mcg capsule finasteride finasteride No Bettie Unknown Unknown 5 mg tablet 5 mg tablet Bennie WALLACE midodrine 5 midodrine 5 No Bettie Unknown Unknown mg tablet mg tablet Bennie WALLACE omega omega No Bettie Unknown Unknown 3-dha-epa-f 3-dha-epa-f Bennie WALLACE tammy oil tammy oil 1,000 mg 1,000 mg (120 mg-180 (120 mg-180 mg) capsule mg) capsule PreserVisio PreserVisio No Bettie Unknown Unknown n AREDS-2 n AREDS-2 Bennie WALLACE 250 mg-200 250 mg-200 unit-40 unit-40 mg-1 mg mg-1 mg capsule capsule senna 8.6 senna 8.6 No Bettie Unknown Unknown mg tablet mg tablet Bennie WALLACE traMADol 50 traMADol 50 No Bettie Unknown Unknown mg tablet mg tablet Bennie WALLACE famotidine famotidine 2018-10 Yes Bettie Unknown Unknown 20 mg 20 mg 2-18 Bennie WALLACE tablet tablet ascorbic ascorbic 2018-10 Yes Bettie Unknown Unknown acid acid 2-18 Bennie WALLACE (vitamin C) (vitamin C) 1,000 mg 1,000 mg tablet tablet levothyroxi levothyroxi 2018-10 Yes Bettie Unknown Unknown ne 25 mcg ne 25 mcg 2-18 Bennie WALLACE tablet tablet Fish Oil Fish Oil 2018-10 Yes Bettie Unknown Unknown 100 mg-160 100 mg-160 2-18 Bennie WALLACE mg-1,000 mg mg-1,000 mg capsule capsule Vitamin D3 Vitamin D3 2018-10 Yes Bettie Unknown Unknown 1,000 unit 1,000 unit 2-18 Bennie WALLACE capsule capsule midodrine 5 midodrine 5 2018-10 Yes Bettie Unknown Unknown mg tablet mg tablet 2-18 Bennie WALLACE finasteride finasteride 2018-10 Yes Bettie Unknown Unknown 5 mg tablet 5 mg tablet 2-18 Bennie WALLACE cyanocobala cyanocobala 2018-10 Yes Bettie Unknown Unknown min (vit min (vit 2-18 Bennie WALLACE B-12) 1,000 B-12) 1,000 mcg tablet mcg tablet Acetaminoph Acetaminoph 2018-10 Yes Bettie Unknown Unknown en Pain en Pain 2-18 Bennie WALLACE Relief 500 Relief 500 mg tablet mg tablet traMADol 50 traMADol 50 2018-10 Yes Bettie Unknown Unknown mg tablet mg tablet 2-18 Bennie WALLACE PreserVisio PreserVisio 2018-10 Yes Bettie Unknown Unknown n AREDS-2 n AREDS-2 2-18 Bennie WALLACE 250 mg-200 250 mg-200 unit-40 unit-40 mg-1 mg mg-1 mg capsule capsule Vital Signs Vital Name Observation Time Observation Value Comments SYSTOLIC mm[Hg] 2019-11-16 18:10:13 102 mm[Hg] mm[Hg] Method: Sit SYSTOLIC mm[Hg] 2019-10-03 18:09:29 118 mm[Hg] mm[Hg] Method: Stand DIASTOLIC mm[Hg] 2019-11-16 18:10:13 60 mm[Hg] mm[Hg] Method: Sit DIASTOLIC mm[Hg] 2019-10-03 18:09:29 80 mm[Hg] mm[Hg] Method: Stand PULSE 2019-11-16 18:10:13 84 /min /min RESP RATE 2019-10-03 18:09:29 17 /min /min TEMP 2019-11-16 18:10:13 98.2 [degF] Procedures This patient has no known procedures. Results This patient has no known results.
--- OUTSIDE RECORDS SUMMARY | 2019-11-30 23:15 | XMS REPORT ---
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, impairment, [id number] so stated so stated Hypotension Hypotension Diagnosis Active Avis , , 10-13 Bacon unspecified unspecified [id number] Low back Low back Diagnosis Active Avis pain pain 10-13 Bacon [id number] Benign Benign Diagnosis Active 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 hyperplasia hyperplasia [id number] with lower with lower urinary urinary tract tract symptoms symptoms Constipatio Constipatio Diagnosis Active Avis n, n, 10-13 Bacon unspecified unspecified [id number] Dizziness Dizziness Diagnosis Active Avis and and Bacon giddiness giddiness [id number] Personal Personal Diagnosis Active Avis history of history of Bacon urinary urinary [id number] (tract) (tract) infections infections History of History of Diagnosis Active Avis falling falling Bacon [id number] Pain frequent Pain Mgmt Resolve 2018-102019-11-19 Carol pain d 2-18 09:53:00 (Chanel) 10:50: Kurtis 00 [id number] Cardio edema Cardiovasc Resolve 2018-102019-11-19 Carol ular d 2-18 09:53:00 (Chanel) 10:50: Kurtis 00 [id number] Respiratory dyspnea Respirator Resolve 2018-102019-11-19 Carol present y d 2-18 09:53:00 (Chanel) 10:50: Kurtis 00 [id number] Endo/Jermaine anti-coagul Endo/Jermaine Resolve 2018-102019-11-19 Carol ation d 2-18 09:53:00 (Chanel) therapy 10:50: Kurtis [id number] Sensory impaired Sensory Resolve 2018-102019-11-19 Carol hearing d 2-18 09:53:00 (Chanel) 10:50: [place] [id number] Integument pressure Integument Resolve 2018-102019-11-19 Carol ulcer d 2-18 09:53:00 (Chanel) present 10:50: [place] [id number] Integument skin Integument Resolve 2018-102019-11-19 Carol integrity d 2-18 09:53:00 (Chanel) risk 10:50: Kurtis [id number] Elimination urinary Eliminatio Resolve 2018-102019-11-19 Carol incontinenc n d 2-18 09:53:00 (Chanel) e 10:50: Kurtis 00 [id number] Neuro confusion Neuro/Emot Resolve 2018-102019-11-19 Carol present ion d 2-18 09:53:00 (Chanel) 10:50: Kurtis [id number] Neuro impaired Neuro/Emot Resolve 2018-102019-11-19 Carol decision-ma ion d 2-18 09:53:00 (Chanel) savana 10:50: [place] [id number] Neuro memory Neuro/Emot Resolve 2018-102019-11-19 Carol deficit ion d 2-18 09:53:00 (Chanel) needing 10:50: Kurtis supervision 00 [id number] Activity ADL Activity Resolve 2018-102019-11-19 Carol assistance d 2-18 09:53:00 (Chanel) required 10:50: [place] [id number] Activity self-care Activity Resolve 2018-102019-11-19 Carol deficit d 2-18 09:53:00 (Chanel) 10:50: [place]is [id number] Safety fall risk Safety Resolve 2018-102019-11-19 Carol factor d 2-18 09:53:00 (Chaenl) present 10:50: Kurtis [id number] Safety knowledge/s Safety Resolve 2018-102019-11-19 QUALITY kill d 2-18 09:53:00 REALTIME deficit: pt 10:50: 00 Safety cannot be Safety Resolve 2018-102019-11-19 Carol left alone d 2-18 09:53:00 (Chanel) 10:50: [place] 00 [id number] Safety risk for Safety Resolve 2018-102019-11-19 Carol hospitaliza d 2-18 09:53:00 (Chanel) tion 10:50: [place] 00 [id number] Medication oral med Meds Resolve 2018-102019-11-19 Carol assistance d 2-18 09:53:00 (Chanel) required 10:50: [place] 00 [id number] Musculoskel transfer Musculoske Resolve 2018-102019-11-19 Carol etal assistance letal d 2-18 09:53:00 (Chanel) required 10:50: [place] 00 [id number] Musculoskel requires Musculoske Resolve 2018-102019-11-19 Carol etal human letal d 2-18 09:53:00 (Chanel) assist to 10:50: [place] leave home 00 [id number] Nutrition nutritional Nutrition Resolve 2018-102019-11-19 Avis restriction d 2-18 09:53:00 Bacon s 13:25: [id number] Bed transfer PT/OT: Bed Resolve 2018-102019-11-19 Avis Mobility/Tr deficit: Mobility/T d 2-18 09:53:00 Baconmohan segurafer sit/stand ransfer 13:25: [id number] Bed transfer PT/OT: Bed Resolve 2018-102019-11-19 Avis Mobility/Tr deficit: Mobility/T d 2-18 09:53:00 Jordi merino standing ransfer 13:25: [id number] pivot 00 Bed transfer PT/OT: Bed Resolve 2018-102019-11-19 Avis Mobility/Tr deficit: Mobility/T d 2-18 09:53:00 Jordi segurafer toilet/comm ransfer 13:25: [id number] ode 00 Bed knowledge/s PT/OT: Bed Resolve 2018-102019-11-19 Avis Mobility/Tr kill Mobility/T d 2-18 09:53:00 Bacon ansfer deficit: pt ransfer 13:25: [id number] Bed bed PT/OT: Bed Resolve 2018-102019-11-19 Avis Mobility/Tr mobility Mobility/T d 11-30 09:53:00 Bacon ansfer deficit ransfer 13:25: [id number] Balance/End balance/cooker soda PT/OT: Resolve 2018-102019-11-19 Avis maldonado rdination Balance/En d 11-30 09:53:00 Bacon deficit durance 13:25: [id number] Balance/End endurance PT/OT: Resolve 2018-102019-11-19 Avis urance deficit Balance/En d 11-30 09:53:00 Bacon durance 13:25: [id number] Balance/End knowledge/s PT/OT: Resolve 2018-102019-11-19 Avis maldonado kill Balance/En d 11-30 09:53:00 Bacon deficit: pt durance 13:25: [id number] Gait/Locomo gait PT/OT: Resolve 2018-102019-11-19 Avis tion deficit Gait/Locom d 2-18 09:53:00 Bacon problems otion 13:25: [id number] Gait/Locomo knowledge/s PT/OT: Resolve 2018-102019-11-19 Avis tion kill Gait/Locom d 2 09:53:00 Bacon problems deficit: pt otion 13:25: [id number] 00 Allergies, Adverse Reactions, Alerts Allergy Name [...] tablet cholecalcif cholecalcif No Bettie Unknown Unknown maxx maxx 11-19 Bennie WALLACE (vitamin (vitamin D3) [...]
--- OUTSIDE RECORDS SUMMARY | 2019-11-30 23:15 | XMS REPORT ---
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, impairment, [id number] so stated so stated Hypotension Hypotension Diagnosis Active Avis , , 10-13 Bacon unspecified unspecified [id number] Low back Low back Diagnosis Active Avis pain pain 10-13 Bacon [id number] Benign Benign Diagnosis Active 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 hyperplasia hyperplasia [id number] with lower with lower urinary urinary tract tract symptoms symptoms Constipatio Constipatio Diagnosis Active Avis n, n, 10-13 Bacon unspecified unspecified [id number] Dizziness Dizziness Diagnosis Active Avis and and Bacon giddiness giddiness [id number] Personal Personal Diagnosis Active Avis history of history of Bacon urinary urinary [id number] (tract) (tract) infections infections History of History of Diagnosis Active Avis falling falling Bacon [id number] Pain frequent Pain Mgmt Resolve 2018-102019-11-19 Carol pain d 2-18 09:53:00 (Chanel) 10:50: Kurtis 00 [id number] Cardio edema Cardiovasc Resolve 2018-102019-11-19 Carol ular d 2-18 09:53:00 (Chanel) 10:50: Kurtis 00 [id number] Respiratory dyspnea Respirator Resolve 2018-102019-11-19 Carol present y d 2-18 09:53:00 (Chanel) 10:50: Kurtis 00 [id number] Endo/Jermaine anti-coagul Endo/Jermaine Resolve 2018-102019-11-19 Carol ation d 2-18 09:53:00 (Chanel) therapy 10:50: Kurtis [id number] Sensory impaired Sensory Resolve 2018-102019-11-19 Carol hearing d 2-18 09:53:00 (Chanel) 10:50: [place] [id number] Integument pressure Integument Resolve 2018-102019-11-19 Carol ulcer d 2-18 09:53:00 ([place]el) present 10:50: [place] [id number] Integument skin Integument Resolve 2018-102019-11-19 Carol integrity d 2-18 09:53:00 (Chanel) risk 10:50: Kurtis [id number] Elimination urinary Eliminatio Resolve 2018-102019-11-19 Carol incontinenc n d 2-18 09:53:00 (Chanel) e 10:50: Kurtis 00 [id number] Neuro confusion Neuro/Emot Resolve 2018-102019-11-19 Carol present ion d 2-18 09:53:00 (Chanel) 10:50: Kurtis [id number] Neuro impaired Neuro/Emot Resolve 2018-102019-11-19 Carol decision-ma ion d 2-18 09:53:00 (Chanel) savana 10:50: [place] [id number] Neuro memory Neuro/Emot Resolve 2018-102019-11-19 Carol deficit ion d 2-18 09:53:00 (Chanel) needing 10:50: Kurtis supervision 00 [id number] Activity ADL Activity Resolve 2018-102019-11-19 Carol assistance d 2-18 09:53:00 (Chanel) required 10:50: [place] [id number] Activity self-care Activity Resolve 2018-102019-11-19 Carol deficit d 2-18 09:53:00 (Chanel) 10:50: Kurtis [id number] Safety fall risk Safety Resolve 2018-102019-11-19 Carol factor d 2-18 09:53:00 (Chanel) present 10:50: Kurtis [id number] Safety knowledge/s Safety Resolve 2018-102019-11-19 QUALITY kill d 2-18 09:53:00 REALTIME deficit: pt 10:50: 00 Safety cannot be Safety Resolve 2018-102019-11-19 Carol left alone d 2-18 09:53:00 (Chanel) 10:50: [place] 00 [id number] Safety risk for Safety Resolve 2018-102019-11-19 Carol hospitaliza d 2-18 09:53:00 (Chanel) tion 10:50: [place] 00 [id number] Medication oral med Meds Resolve 2018-102019-11-19 Carol assistance d 2-18 09:53:00 ([place]el) required 10:50: [place] 00 [id number] Musculoskel transfer Musculoske Resolve 2018-102019-11-19 Carol etal assistance letal d 2-18 09:53:00 (Chanel) required 10:50: [place] 00 [id number] Musculoskel requires Musculoske Resolve 2018-102019-11-19 Carol etal human letal d 2-18 09:53:00 (Chanel) assist to 10:50: [place] leave home 00 [id number] Nutrition nutritional Nutrition Resolve 2018-102019-11-19 Avis restriction d 2-18 09:53:00 Bacon s 13:25: [id number] Bed transfer PT/OT: Bed Resolve 2018-102019-11-19 Avis Mobility/Tr deficit: Mobility/T d 2-18 09:53:00 Baconmohan segurafer sit/stand ransfer 13:25: [id number] Bed transfer PT/OT: Bed Resolve 2018-102019-11-19 Avis Mobility/Tr deficit: Mobility/T d 2-18 09:53:00 Jordi merino standing ransfer 13:25: [id number] pivot 00 Bed transfer PT/OT: Bed Resolve 2018-102019-11-19 Avis Mobility/Tr deficit: Mobility/T d 2-18 09:53:00 Jordi segurafer toilet/comm ransfer 13:25: [id number] ode 00 Bed knowledge/s PT/OT: Bed Resolve 2018-102019-11-19 Avis Mobility/Tr kill Mobility/T d 2-18 09:53:00 Bacon ansfer deficit: pt ransfer 13:25: [id number] Bed bed PT/OT: Bed Resolve 2018-102019-11-19 Avis Mobility/Tr mobility Mobility/T d 11-30 09:53:00 Bacon ansfer deficit ransfer 13:25: [id number] Balance/End balance/ad operations coordinator PT/OT: Resolve 2018-102019-11-19 Avis maldonado rdination Balance/En d 11-30 09:53:00 Bacon deficit durance 13:25: [id number] Balance/End endurance PT/OT: Resolve 2018-102019-11-19 Avis urance deficit Balance/En d 11-30 09:53:00 Bacon durance 13:25: [id number] Balance/End knowledge/s PT/OT: Resolve 2018-102019-11-19 Avis maldonado kill Balance/En d 11-30 09:53:00 Bacon deficit: pt durance 13:25: [id number] Gait/Locomo gait PT/OT: Resolve 2018-102019-11-19 Avis tion deficit Gait/Locom d 2-18 09:53:00 Bacon problems otion 13:25: [id number] Gait/Locomo knowledge/s PT/OT: Resolve 2018-102019-11-19 Avis tion kill Gait/Locom d 2 09:53:00 Bacon problems deficit: pt otion 13:25: [id number] Allergies, Adverse Reactions, Alerts Allergy Name [...]
--- OUTSIDE RECORDS SUMMARY | 2019-11-30 23:15 | XMS REPORT ---
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, impairment, [id number] so stated so stated Hypotension Hypotension Diagnosis Active Avis , , 10-13 Bacon unspecified unspecified [id number] Low back Low back Diagnosis Active Avis pain pain 10-13 Bacon [id number] Benign Benign Diagnosis Active 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 hyperplasia hyperplasia [id number] with lower with lower urinary urinary tract tract symptoms symptoms Constipatio Constipatio Diagnosis Active Avis n, n, 10-13 Bacon unspecified unspecified [id number] Dizziness Dizziness Diagnosis Active Avis and and Bacon giddiness giddiness [id number] Personal Personal Diagnosis Active Avis history of history of Bacon urinary urinary [id number] (tract) (tract) infections infections History of History of Diagnosis Active Avis falling falling Bacon [id number] Pain frequent Pain Mgmt Resolve 2018-102019-11-19 Carol pain d 2-18 09:53:00 (Chanel) 10:50: Kurtis 00 [id number] Cardio edema Cardiovasc Resolve 2018-102019-11-19 Carol ular d 2-18 09:53:00 (Chanel) 10:50: Kurtis 00 [id number] Respiratory dyspnea Respirator Resolve 2018-102019-11-19 Carol present y d 2-18 09:53:00 (Chanel) 10:50: Kurtis 00 [id number] Endo/Jermaine anti-coagul Endo/Jermaine Resolve 2018-102019-11-19 Carol ation d 2-18 09:53:00 (Chanel) therapy 10:50: Kurtis [id number] Sensory impaired Sensory Resolve 2018-102019-11-19 Carol hearing d 2-18 09:53:00 (Chanel) 10:50: [place] [id number] Integument pressure Integument Resolve 2018-102019-11-19 Carol ulcer d 2-18 09:53:00 (Chanel) present 10:50: [place] [id number] Integument skin Integument Resolve 2018-102019-11-19 Carol integrity d 2-18 09:53:00 (Chanel) risk 10:50: Kurtis [id number] Elimination urinary Eliminatio Resolve 2018-102019-11-19 Carol incontinenc n d 2-18 09:53:00 (Chanel) e 10:50: Kurtis 00 [id number] Neuro confusion Neuro/Emot Resolve 2018-102019-11-19 Carol present ion d 2-18 09:53:00 (Chanel) 10:50: Kurtis [id number] Neuro impaired Neuro/Emot Resolve 2018-102019-11-19 Carol decision-ma ion d 2-18 09:53:00 (Chanel) savana 10:50: [place] [id number] Neuro memory Neuro/Emot Resolve 2018-102019-11-19 Carol deficit ion d 2-18 09:53:00 (Chanel) needing 10:50: Kurtis supervision 00 [id number] Activity ADL Activity Resolve 2018-102019-11-19 Carol assistance d 2-18 09:53:00 ([place]el) required 10:50: [place] [id number] Activity self-care Activity Resolve 2018-102019-11-19 Carol deficit d 2-18 09:53:00 (Chanel) 10:50: Kurtis [id number] Safety fall risk Safety Resolve 2018-102019-11-19 Carol factor d 2-18 09:53:00 (Chanel) present 10:50: Kurtis [id number] Safety knowledge/s Safety Resolve 2018-102019-11-19 QUALITY kill d 2-18 09:53:00 REALTIME deficit: pt 10:50: 00 Safety cannot be Safety Resolve 2018-102019-11-19 Carol left alone d 2-18 09:53:00 (Chanel) 10:50: [place] 00 [id number] Safety risk for Safety Resolve 2018-102019-11-19 Carol hospitaliza d 2-18 09:53:00 (Chanel) tion 10:50: [place] 00 [id number] Medication oral med Meds Resolve 2018-102019-11-19 Carol assistance d 2-18 09:53:00 (Chanel) required 10:50: [place] 00 [id number] Musculoskel transfer Musculoske Resolve 2018-102019-11-19 Carol etal assistance letal d 2-18 09:53:00 (Chanel) required 10:50: [place] 00 [id number] Musculoskel requires Musculoske Resolve 2018-102019-11-19 Carol etal human letal d 2-18 09:53:00 (Chanel) assist to 10:50: [place] leave home 00 [id number] Nutrition nutritional Nutrition Resolve 2018-102019-11-19 Avis restriction d 2-18 09:53:00 Bacon s 13:25: [id number] Bed transfer PT/OT: Bed Resolve 2018-102019-11-19 Avis Mobility/Tr deficit: Mobility/T d 2-18 09:53:00 Baconmohan segurafer sit/stand ransfer 13:25: [id number] Bed transfer PT/OT: Bed Resolve 2018-102019-11-19 Avis Mobility/Tr deficit: Mobility/T d 2-18 09:53:00 Jordi merino standing ransfer 13:25: [id number] pivot 00 Bed transfer PT/OT: Bed Resolve 2018-102019-11-19 Avis Mobility/Tr deficit: Mobility/T d 2-18 09:53:00 Jordi segurafer toilet/comm ransfer 13:25: [id number] ode 00 Bed knowledge/s PT/OT: Bed Resolve 2018-102019-11-19 Avis Mobility/Tr kill Mobility/T d 2-18 09:53:00 Bacon ansfer deficit: pt ransfer 13:25: [id number] Bed bed PT/OT: Bed Resolve 2018-102019-11-19 Avis Mobility/Tr mobility Mobility/T d 11-30 09:53:00 Bacon ansfer deficit ransfer 13:25: [id number] Balance/End balance/cookie breaker PT/OT: Resolve 2018-102019-11-19 Avis maldonado rdination Balance/En d 11-30 09:53:00 Bacon deficit durance 13:25: [id number] Balance/End endurance PT/OT: Resolve 2018-102019-11-19 Avis urance deficit Balance/En d 11-30 09:53:00 Bacon durance 13:25: [id number] Balance/End knowledge/s PT/OT: Resolve 2018-102019-11-19 Avis maldonado kill Balance/En d 11-30 09:53:00 Bacon deficit: pt durance 13:25: [id number] Gait/Locomo gait PT/OT: Resolve 2018-102019-11-19 Avis tion deficit Gait/Locom d 2-18 09:53:00 Bacon problems otion 13:25: [id number] Gait/Locomo knowledge/s PT/OT: Resolve 2018-102019-11-19 Avis tion kill Gait/Locom d 2 09:53:00 Bacon problems deficit: pt otion 13:25: [id number] Allergies, Adverse Reactions, Alerts Allergy Name [...]
--- OUTSIDE RECORDS SUMMARY | 2019-11-30 23:15 | XMS REPORT ---
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, impairment, [id number] so stated so stated Hypotension Hypotension Diagnosis Active Avis , , 10-13 Bacon unspecified unspecified [id number] Low back Low back Diagnosis Active Avis pain pain 10-13 Bacon [id number] Benign Benign Diagnosis Active 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 hyperplasia hyperplasia [id number] with lower with lower urinary urinary tract tract symptoms symptoms Constipatio Constipatio Diagnosis Active Avis n, n, 10-13 Bacon unspecified unspecified [id number] Dizziness Dizziness Diagnosis Active Avis and and Bacon giddiness giddiness [id number] Personal Personal Diagnosis Active Avis history of history of Bacon urinary urinary [id number] (tract) (tract) infections infections History of History of Diagnosis Active Avis falling falling Bacon [id number] Pain frequent Pain Mgmt Active 2018-10 Carol pain 2-18 (Chanel) 10:50: Kurtis 00 [id number] Cardio edema Cardiovasc Active 2018-10 Carol ular 2-18 (Chanel) 10:50: Kurtis 00 [id number] Respiratory dyspnea Respirator Active 2018-10 Carol present y 2-18 (Chanel) 10:50: Kurtis 00 [id number] Endo/Jermaine anti-coagul Endo/Jermaine Active 2018-10 Carol ation 2-18 (Chanel) therapy 10:50: [place] [id number] Sensory impaired Sensory Active 2018- Carol hearing 2-18 (Chanel) 10:50: [place] [id number] Integument pressure Integument Active 2019- Carol ulcer 2-18 (Chanel) present 10:50: [place] [id number] Integument skin Integument Active 2018-10 Carol integrity 2-18 (Chanel) risk 10:50: [place] [id number] Elimination urinary Eliminatio Active 2018-10 Carol incontinenc n 2-18 ([place]el) e 10:50: [place] [id number] Neuro confusion Neuro/Emot Active 2018-10 Carol present ion 2-18 (Chanel) 10:50: [place] [id number] Neuro impaired Neuro/Emot Active 2018-10 Carol decision-ma ion 2-18 (Chanel) savana 10:50: [place] [id number] Neuro memory Neuro/Emot Active 2018-10 Carol deficit ion 2-18 ([place]el) needing 10:50: [place] supervision 00 [id number] Activity ADL Activity Active 2018-10 Carol assistance 2-18 ([place]el) required 10:50: [place] [id number] Activity self-care Activity Active 2018-10 Acrol deficit 2-18 (Chanel) 10:50: [place] [id number] Safety fall risk Safety Active 2018- Carol factor 2-18 ([place]el) present 10:50: [place] [id number] Safety knowledge/s Safety Active 2018- QUALITY kill 2-18 REALTIME deficit: pt 10:50: 00 Safety cannot be Safety Active 2019- Carol left alone 2-18 (Chanel) 10:50: [place] [id number] Safety risk for Safety Active 2019- Carol hospitaliza 2-18 (Chanel) tion 10:50: [place] [id number] Medication oral med Meds Active 2018- Carol assistance 2-18 ([place]el) required 10:50: [place] 00 [id number] Musculoskel transfer Musculoske Active 2018-10 Carol etal assistance letal 2-18 (Chanel) required 10:50: [place] [id number] Musculoskel requires Musculoske Active 2018-10 Carol etal human letal 2-18 (Chanel) assist to 10:50: [place] leave home 00 [id number] Nutrition nutritional Nutrition Active 2018-10 Avis restriction 2-18 Bacon s 13:25: [id number] Bed transfer PT/OT: Bed Active 2018-10 Avis Mobility/Tr deficit: Mobility/T 2-18 Bacon ansfer sit/stand ransfer 13:25: [id number] Bed transfer PT/OT: Bed Active 2018-10 Avis Mobility/Tr deficit: Mobility/T 2-18 Bacon ansfer standing ransfer 13:25: [id number] pivot 00 Bed transfer PT/OT: Bed Active 2018-10 Avis Mobility/Tr deficit: Mobility/T 2-18 Bacon ansfer toilet/comm ransfer 13:25: [id number] ode 00 Bed knowledge/s PT/OT: Bed Active 2018-10 Avis Mobility/Tr kill Mobility/T 2-18 Bacon ansfer deficit: pt ransfer 13:25: [id number] Bed bed PT/OT: Bed Active 2018-10 Avis Mobility/Tr mobility Mobility/T 2-18 Bacon ansfer deficit ransfer 13:25: [id number] Balance/End balance/pantry cook PT/OT: Active 2018-10 Avis urance rdination Balance/En 2-18 Bacon deficit durance 13:25: [id number] Balance/End endurance PT/OT: Active 2018-10 Avis urance deficit Balance/En 2-18 Bacon durance 13:25: [id number] Balance/End knowledge/s PT/OT: Active 2018-10 Avis urance kill Balance/En 2-18 Bacon deficit: pt durance 13:25: [id number] Gait/Locomo gait PT/OT: Active 2018-10 Avis tion deficit Gait/Locom 2-18 Bacon problems otion 13:25: [id number] 00 Gait/Locomo knowledge/s PT/OT: Active 2018-10 Avis tion kill Gait/Locom 2-18 Bacon problems deficit: pt otion 13:25: [id number] 00 Allergies, Adverse Reactions, Alerts Allergy Name [...]
--- OUTSIDE RECORDS SUMMARY | 2019-11-30 23:15 | XMS REPORT ---
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, impairment, [id number] so stated so stated Hypotension Hypotension Diagnosis Active Avis , , 10-13 Bacon unspecified unspecified [id number] Low back Low back Diagnosis Active Avis pain pain 10-13 Bacon [id number] Benign Benign Diagnosis Active [place] prostatic prostatic 10-13 Bacon hyperplasia hyperplasia [id number] with lower with lower urinary urinary tract tract symptoms symptoms Constipatio Constipatio Diagnosis Active Avis n, n, 10-13 Bacon unspecified unspecified [id number] Dizziness Dizziness Diagnosis Active Avis and and Bacon giddiness giddiness [id number] Personal Personal Diagnosis Active Avis history of history of Bacon urinary urinary [id number] (tract) (tract) infections infections History of History of Diagnosis Active Avis falling falling Bacon [id number] Pain frequent Pain Mgmt Active 2018-10 Carol pain 2-18 (Chanel) 10:50: Kurtis 00 [id number] Cardio edema Cardiovasc Active 2018-10 Carol ular 2-18 (Chanel) 10:50: Kurtis 00 [id number] Respiratory dyspnea Respirator Active 2018-10 Carol present y 2-18 (Chanel) 10:50: Kurtis 00 [id number] Endo/Jermaine anti-coagul Endo/Jermaine Active 2018-10 Carol ation 2-18 (Chanel) therapy 10:50: [place] [id number] Sensory impaired Sensory Active 2018- Carol hearing 2-18 (Chanel) 10:50: [place] [id number] Integument pressure Integument Active 2019- Carol ulcer 2-18 (Chanel) present 10:50: [place] [id number] Integument skin Integument Active 2018-10 Carol integrity 2-18 (Chanel) risk 10:50: [place] [id number] Elimination urinary Eliminatio Active 2018-10 Carol incontinenc n 2-18 (Chanel) e 10:50: [place] [id number] Neuro confusion Neuro/Emot Active 2018-10 Carol present ion 2-18 (Chanel) 10:50: [place] [id number] Neuro impaired Neuro/Emot Active 2018-10 Carol decision-ma ion 2-18 (Chanel) savana 10:50: [place] [id number] Neuro memory Neuro/Emot Active 2018-10 Carol deficit ion 2-18 (Chanel) needing 10:50: [place] supervision 00 [id number] Activity ADL Activity Active 2018-10 Carol assistance 2-18 ([place]el) required 10:50: [place] [id number] Activity self-care Activity Active 2018-10 Carol deficit 2-18 (Chanel) 10:50: [place] [id number] Safety fall risk Safety Active 2018- Carol factor 2-18 (Chanel) present 10:50: [place] [id number] Safety knowledge/s Safety Active 2018- QUALITY kill 2-18 REALTIME deficit: pt 10:50: 00 Safety cannot be Safety Active 2019- Carol left alone 2-18 (Chanel) 10:50: [place] [id number] Safety risk for Safety Active 2019- Carol hospitaliza 2-18 (Chanel) tion 10:50: [place] [id number] Medication oral med Meds Active 2018- Carol assistance 2-18 (Chanel) required 10:50: [place] 00 [id number] Musculoskel transfer Musculoske Active 2018-10 Carol etal assistance letal 2-18 (Chanel) required 10:50: [place] [id number] Musculoskel requires Musculoske Active 2018-10 Carol etal human letal 2-18 (Chanel) assist to 10:50: [place] leave home 00 [id number] Nutrition nutritional Nutrition Active 2018-10 Avis restriction 2-18 Bacon s 13:25: [id number] Bed transfer PT/OT: Bed Active 2018-10 Avis Mobility/Tr deficit: Mobility/T 2-18 Bacon ansfer sit/stand ransfer 13:25: [id number] 00 Bed transfer PT/OT: Bed Active 2018-10 Avis Mobility/Tr deficit: Mobility/T 2-18 Bacon ansfer standing ransfer 13:25: [id number] pivot 00 Bed transfer PT/OT: Bed Active 2018-10 Avis Mobility/Tr deficit: Mobility/T 2-18 Bacon ansfer toilet/comm ransfer 13:25: [id number] ode 00 Bed knowledge/s PT/OT: Bed Active 2018-10 Avis Mobility/Tr kill Mobility/T 2-18 Bacon ansfer deficit: pt ransfer 13:25: [id number] Bed bed PT/OT: Bed Active 2018-10 Avis Mobility/Tr mobility Mobility/T 2-18 Bacon ansfer deficit ransfer 13:25: [id number] 00 Balance/End balance/wedding coordinator PT/OT: Active 2018-10 Avis urance rdination Balance/En 2-18 Bacon deficit durance 13:25: [id number] Balance/End endurance PT/OT: Active 2018-10 Avis urance deficit Balance/En 2-18 Bacon durance 13:25: [id number] 00 Balance/End knowledge/s PT/OT: Active 2018-10 Avis urance kill Balance/En 2-18 Bacon deficit: pt durance 13:25: [id number] 00 Gait/Locomo gait PT/OT: Active 2018-10 Avis tion deficit Gait/Locom 2-18 Bacon problems otion 13:25: [id number] 00 Gait/Locomo knowledge/s PT/OT: Active 2018-10 Avis tion kill Gait/Locom 2-18 Bacon problems deficit: pt otion 13:25: [id number] 00 Allergies, Adverse Reactions, Alerts Allergy Name [...] Observation Time Observation Value Comments SYSTOLIC mm[Hg] 2019-11-12 18:10:09 105 mm[Hg] mm[Hg] Method: Sit SYSTOLIC mm[Hg] 2019-10-03 18:09:29 118 mm[Hg] mm[Hg] Method: Stand DIASTOLIC mm[Hg] 2019-11-12 18:10:09 70 mm[Hg] mm[Hg] Method: Sit DIASTOLIC mm[Hg] 2019-10-03 18:09:29 80 mm[Hg] mm[Hg] Method: Stand PULSE 2019-11-12 18:10:09 92 /min /min RESP RATE 2019-10-03 18:09:29 17 /min /min TEMP 2019-11-12 18:10:09 99.4 [degF] Procedures This patient has no known procedures. Results This patient has no known results.
--- OUTSIDE RECORDS SUMMARY | 2019-11-30 23:16 | XMS REPORT ---
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, impairment, [id number] so stated so stated Hypotension Hypotension Diagnosis Active Avis , , 10-13 Bacon unspecified unspecified [id number] Low back Low back Diagnosis Active Avis pain pain 10-13 Bacon [id number] Benign Benign Diagnosis Active 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 hyperplasia hyperplasia [id number] with lower with lower urinary urinary tract tract symptoms symptoms Constipatio Constipatio Diagnosis Active Avis n, n, 10-13 Bacon unspecified unspecified [id number] Dizziness Dizziness Diagnosis Active Avis and and Bacon giddiness giddiness [id number] Personal Personal Diagnosis Active Avis history of history of Bacon urinary urinary [id number] (tract) (tract) infections infections History of History of Diagnosis Active Avis falling falling Bacon [id number] Pain frequent Pain Mgmt Active 2018-10 Carol pain 2-18 ([place]) 10:50: Kurtis 00 [id number] Cardio edema Cardiovasc Active 2018-10 Carol ular 2-18 ([place]) 10:50: Kurtis 00 [id number] Respiratory dyspnea Respirator Active 2018-10 Carol present y 2-18 ([place]) 10:50: Kurtis 00 [id number] Endo/Jermaine anti-coagul Endo/Jermaine Active 2018-10 Carol ation 2-18 ([place]) therapy 10:50: [place] [id number] Sensory impaired Sensory Active 2018- Carol hearing 2-18 ([place]) 10:50: [place] [id number] Integument pressure Integument Active 2019- Carol ulcer 2-18 ([place]) present 10:50: [place] [id number] Integument skin Integument Active 2018-10 Carol integrity 2-18 ([place]) risk 10:50: [place] [id number] Elimination urinary Eliminatio Active 2018-10 Carol incontinenc n 2-18 ([place]) e 10:50: [place] [id number] Neuro confusion Neuro/Emot Active 2018-10 Carol present ion 2-18 ([place]) 10:50: Hl[place] [id number] Neuro impaired Neuro/Emot Active 2018-10 Carol decision-ma ion 2-18 ([place]) savana 10:50: [place] [id number] Neuro memory Neuro/Emot Active 2018-10 Carol deficit ion 2-18 ([place]) needing 10:50: [place] supervision 00 [id number] Activity ADL Activity Active 2018-10 Carol assistance 2-18 ([place]) required 10:50: [place] [id number] Activity self-care Activity Active 2018-10 Carol deficit 2-18 ([place]) 10:50: [place] [id number] Safety fall risk Safety Active 2018- Carol factor 2-18 ([place]) present 10:50: [place] [id number] Safety knowledge/s Safety Active 2018- QUALITY kill 2-18 REALTIME deficit: pt 10:50: 00 Safety cannot be Safety Active 2019- Carol left alone 2-18 ([place]) 10:50: [place] [id number] Safety risk for Safety Active 2019- Carol hospitaliza 2-18 ([place]) tion 10:50: [place] [id number] Medication oral med Meds Active 2018- Carol assistance 2-18 ([place]) required 10:50: [place] 00 [id number] Musculoskel transfer Musculoske Active 2018-10 Carlo etal assistance letal 2-18 ([place]) required 10:50: [place] [id number] Musculoskel requires Musculoske Active 2018-10 Carol etal human letal 2-18 ([place]) assist to 10:50: [place] leave home 00 [id number] Nutrition nutritional Nutrition Active 2018-10 Avis restriction 2-18 Bacon s 13:25: [id number] Bed transfer PT/OT: Bed Active 2018-10 Avis Mobility/Tr deficit: Mobility/T 2-18 Bacon ansfer sit/stand ransfer 13:25: [id number] Bed transfer PT/OT: Bed Active 2018-10 Avis Mobility/Tr deficit: Mobility/T 2-18 Bacon ansfer standing ransfer 13:25: [id number] pivot 00 Bed transfer PT/OT: Bed Active 2018-10 Avis Mobility/Tr deficit: Mobility/T 2-18 Bacon ansfer toilet/comm ransfer 13:25: [id number] ode 00 Bed knowledge/s PT/OT: Bed Active 2018-10 Avis Mobility/Tr kill Mobility/T 2-18 Bacon ansfer deficit: pt ransfer 13:25: [id number] Bed bed PT/OT: Bed Active 2018-10 Avis Mobility/Tr mobility Mobility/T 2-18 Bacon ansfer deficit ransfer 13:25: [id number] Balance/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 balance/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 coordinator PT/OT: Active 2018-10 Avis urance rdination Balance/En 2-18 Bacon deficit durance 13:25: [id number] Balance/End endurance PT/OT: Active 2018-10 Avis urance deficit Balance/En 2-18 Bacon durance 13:25: [id number] Balance/End knowledge/s PT/OT: Active 2018-10 Avis urance kill Balance/En 2-18 Bacon deficit: pt durance 13:25: [id number] Gait/Locomo gait PT/OT: Active 2018-10 Avis tion deficit Gait/Locom 2-18 Bacon problems otion 13:25: [id number] Gait/Locomo knowledge/s PT/OT: Active 2018-10 Avis tion kill Gait/Locom 2-18 Bacon problems deficit: pt otion 13:25: [id number] 00 Allergies, Adverse Reactions, Alerts Allergy Name [...] Observation Time Observation Value Comments SYSTOLIC mm[Hg] 2019-11-10 18:10:07 110 mm[Hg] mm[Hg] Method: Sit SYSTOLIC mm[Hg] 2019-10-03 18:09:29 118 mm[Hg] mm[Hg] Method: Stand DIASTOLIC mm[Hg] 2019-11-10 18:10:07 60 mm[Hg] mm[Hg] Method: Sit DIASTOLIC mm[Hg] 2019-10-03 18:09:29 80 mm[Hg] mm[Hg] Method: Stand PULSE 2019-11-10 18:10:07 92 /min /min RESP RATE 2019-10-03 18:09:29 17 /min /min TEMP 2019-11-10 18:10:07 98.1 [degF] Procedures This patient has no known procedures. Results This patient has no known results.
--- OUTSIDE RECORDS SUMMARY | 2019-11-30 23:16 | XMS REPORT ---
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, impairment, [id number] so stated so stated Hypotension Hypotension Diagnosis Active Avis , , 10-13 Bacon unspecified unspecified [id number] Low back Low back Diagnosis Active Avis pain pain 10-13 Bacon [id number] Benign Benign Diagnosis Active 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 hyperplasia hyperplasia [id number] with lower with lower urinary urinary tract tract symptoms symptoms Constipatio Constipatio Diagnosis Active Avis n, n, 10-13 Bacon unspecified unspecified [id number] Dizziness Dizziness Diagnosis Active Avis and and Bacon giddiness giddiness [id number] Personal Personal Diagnosis Active Avis history of history of Bacon urinary urinary [id number] (tract) (tract) infections infections History of History of Diagnosis Active Avis falling falling Bacon [id number] Pain frequent Pain Mgmt Active 2018-10 Carol pain 2-18 ([place]) 10:50: Kurtis 00 [id number] Cardio edema Cardiovasc Active 2018-10 Carol ular 2-18 ([place]) 10:50: Kurtis 00 [id number] Respiratory dyspnea Respirator Active 2018-10 Carol present y 2-18 ([place]) 10:50: Kurtis 00 [id number] Endo/Jermaine anti-coagul Endo/Jermaine Active 2018-10 Carol ation 2-18 ([place]) therapy 10:50: [place] [id number] Sensory impaired Sensory Active 2018- Carol hearing 2-18 ([place]) 10:50: [place] [id number] Integument pressure Integument Active 2019- Carol ulcer 2-18 ([place]) present 10:50: [place] [id number] Integument skin Integument Active 2018-10 Carol integrity 2-18 ([place]) risk 10:50: [place] [id number] Elimination urinary Eliminatio Active 2018-10 Carol incontinenc n 2-18 ([place]) e 10:50: [place] [id number] Neuro confusion Neuro/Emot Active 2018-10 Carol present ion 2-18 ([place]) 10:50: [place] [id number] Neuro impaired Neuro/Emot Active 2018-10 Carol decision-ma ion 2-18 ([place]) savana 10:50: [place] [id number] Neuro memory Neuro/Emot Active 2018-10 Carol deficit ion 2-18 ([place]) needing 10:50: [place] supervision 00 [id number] Activity ADL Activity Active 2018-10 Carol assistance 2-18 ([place]) required 10:50: [place] [id number] Activity self-care Activity Active 2018-10 Carol deficit 2-18 ([place]) 10:50: [place] [id number] Safety fall risk Safety Active 2018- Carol factor 2-18 ([place]) present 10:50: [place] [id number] Safety knowledge/s Safety Active 2018- QUALITY kill 2-18 REALTIME deficit: pt 10:50: 00 Safety cannot be Safety Active 2019- Carol left alone 2-18 ([place]) 10:50: [place] [id number] Safety risk for Safety Active 2019- Carol hospitaliza 2-18 ([place]) tion 10:50: [place] [id number] Medication oral med Meds Active 2018- Carol assistance 2-18 ([place]) required 10:50: [place] 00 [id number] Musculoskel transfer Musculoske Active 2018-10 Carol etal assistance letal 2-18 ([place]) required 10:50: [place] [id number] Musculoskel requires Musculoske Active 2018-10 Carol etal human letal 2-18 ([place]) assist to 10:50: [place] leave home 00 [id number] Nutrition nutritional Nutrition Active 2018-10 Avis restriction 2-18 Bacon s 13:25: [id number] Bed transfer PT/OT: Bed Active 2018-10 Avis Mobility/Tr deficit: Mobility/T 2-18 Bacon ansfer sit/stand ransfer 13:25: [id number] Bed transfer PT/OT: Bed Active 2018-10 Avis Mobility/Tr deficit: Mobility/T 2-18 Bacon ansfer standing ransfer 13:25: [id number] pivot 00 Bed transfer PT/OT: Bed Active 2018-10 Avis Mobility/Tr deficit: Mobility/T 2-18 Bacon ansfer toilet/comm ransfer 13:25: [id number] ode 00 Bed knowledge/s PT/OT: Bed Active 2018-10 Avis Mobility/Tr kill Mobility/T 2-18 Bacon ansfer deficit: pt ransfer 13:25: [id number] 00 Bed bed PT/OT: Bed Active 2018-10 Avis Mobility/Tr mobility Mobility/T 2-18 Bacon ansfer deficit ransfer 13:25: [id number] Balance/End balance/branch operations coordinator PT/OT: Active 2018-10 Avis urance rdination Balance/En 2-18 Bacon deficit durance 13:25: [id number] Balance/End endurance PT/OT: Active 2018-10 Avis urance deficit Balance/En 2-18 Bacon durance 13:25: [id number] Balance/End knowledge/s PT/OT: Active 2018-10 Avis urance kill Balance/En 2-18 Bacon deficit: pt durance 13:25: [id number] Gait/Locomo gait PT/OT: Active 2018-10 Avis tion deficit Gait/Locom 2-18 Bacon problems otion 13:25: [id number] 00 Gait/Locomo knowledge/s PT/OT: Active 2018-10 Avis tion kill Gait/Locom 2-18 Bacon problems deficit: pt otion 13:25: [id number] 00 Allergies, Adverse Reactions, Alerts Allergy Name [...]
--- OUTSIDE RECORDS SUMMARY | 2019-11-30 23:16 | XMS REPORT ---
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, impairment, [id number] so stated so stated Hypotension Hypotension Diagnosis Active Avis , , 10-13 Bacon unspecified unspecified [id number] Low back Low back Diagnosis Active Avis pain pain 10-13 Bacon [id number] Benign Benign Diagnosis Active 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 hyperplasia hyperplasia [id number] with lower with lower urinary urinary tract tract symptoms symptoms Constipatio Constipatio Diagnosis Active Avis n, n, 10-13 Bacon unspecified unspecified [id number] Dizziness Dizziness Diagnosis Active Avis and and Bacon giddiness giddiness [id number] Personal Personal Diagnosis Active Avis history of history of Bacon urinary urinary [id number] (tract) (tract) infections infections History of History of Diagnosis Active Avis falling falling Bacon [id number] Pain frequent Pain Mgmt Active 2018-10 Carol pain 2-18 ([place]) 10:50: Kurtis 00 [id number] Cardio edema Cardiovasc Active 2018-10 Carol ular 2-18 ([place]el) 10:50: Kurtis 00 [id number] Respiratory dyspnea Respirator Active 2018-10 Carol present y 2-18 ([place]) 10:50: Kurtis 00 [id number] Endo/Jermaine anti-coagul Endo/Jermaine Active 2018-10 Carol ation 2-18 ([place]) therapy 10:50: [place] [id number] Sensory impaired Sensory Active 2018- Carol hearing 2-18 ([place]) 10:50: [place] [id number] Integument pressure Integument Active 2019- Carol ulcer 2-18 ([place]) present 10:50: [place] [id number] Integument skin Integument Active 2018-10 Carol integrity 2-18 ([place]el) risk 10:50: [place] [id number] Elimination urinary Eliminatio Active 2018-10 Carol incontinenc n 2-18 ([place]) e 10:50: [place] [id number] Neuro confusion Neuro/Emot Active 2018-10 Carol present ion 2-18 ([place]) 10:50: [place] [id number] Neuro impaired Neuro/Emot Active 2018-10 Carol decision-ma ion 2-18 ([place]) savana 10:50: [place] [id number] Neuro memory Neuro/Emot Active 2018-10 Carol deficit ion 2-18 ([place]) needing 10:50: [place] supervision 00 [id number] Activity ADL Activity Active 2018-10 Carol assistance 2-18 ([place]) required 10:50: [place] [id number] Activity self-care Activity Active 2018-10 Carol deficit 2-18 ([place]) 10:50: [place] [id number] Safety fall risk Safety Active 2018- Carol factor 2-18 ([place]) present 10:50: [place] [id number] Safety knowledge/s Safety Active 2018- QUALITY kill 2-18 REALTIME deficit: pt 10:50: 00 Safety cannot be Safety Active 2019- Carol left alone 2-18 ([place]) 10:50: [place] [id number] Safety risk for Safety Active 2019- Carol hospitaliza 2-18 ([place]) tion 10:50: [place] [id number] Medication oral med Meds Active 2018- Carol assistance 2-18 ([place]) required 10:50: [place] 00 [id number] Musculoskel transfer Musculoske Active 2018-10 Carol etal assistance letal 2-18 ([place]) required 10:50: [place] [id number] Musculoskel requires Musculoske Active 2018-10 Carol etal human letal 2-18 ([place]) assist to 10:50: [place] leave home 00 [id number] Nutrition nutritional Nutrition Active 2018-10 Avis restriction 2-18 Bacon s 13:25: [id number] 00 Bed transfer PT/OT: Bed Active 2018-10 Avis Mobility/Tr deficit: Mobility/T 2-18 Bacon ansfer sit/stand ransfer 13:25: [id number] Bed transfer PT/OT: Bed Active 2018-10 Avis Mobility/Tr deficit: Mobility/T 2-18 Bacon ansfer standing ransfer 13:25: [id number] pivot 00 Bed transfer PT/OT: Bed Active 2018-10 Avis Mobility/Tr deficit: Mobility/T 2-18 Bacon ansfer toilet/comm ransfer 13:25: [id number] ode 00 Bed knowledge/s PT/OT: Bed Active 2018-10 Avis Mobility/Tr kill Mobility/T 2-18 Bacon ansfer deficit: pt ransfer 13:25: [id number] 00 Bed bed PT/OT: Bed Active 2018-10 Avis Mobility/Tr mobility Mobility/T 2-18 Bacon ansfer deficit ransfer 13:25: [id number] 00 Balance/End balance/direct marketing coordinator PT/OT: Active 2018-10 Avis urance rdination Balance/En 2-18 Bacon deficit durance 13:25: [id number] Balance/End endurance PT/OT: Active 2018-10 Avis urance deficit Balance/En 2-18 Bacon durance 13:25: [id number] 00 Balance/End knowledge/s PT/OT: Active 2018-10 Avis urance kill Balance/En 2-18 Bacon deficit: pt durance 13:25: [id number] Gait/Locomo gait PT/OT: Active 2018-10 Avis tion deficit Gait/Locom 2-18 Bacon problems otion 13:25: [id number] 00 Gait/Locomo knowledge/s PT/OT: Active 2018-10 Avis tion kill Gait/Locom 2-18 Bacon problems deficit: pt otion 13:25: [id number] 00 Allergies, Adverse Reactions, Alerts Allergy Name [...] Observation Time Observation Value Comments SYSTOLIC mm[Hg] 2019-10-29 18:09:55 110 mm[Hg] mm[Hg] Method: Sit SYSTOLIC mm[Hg] 2019-10-03 18:09:29 118 mm[Hg] mm[Hg] Method: Stand DIASTOLIC mm[Hg] 2019-10-29 18:09:55 60 mm[Hg] mm[Hg] Method: Sit DIASTOLIC mm[Hg] 2019-10-03 18:09:29 80 mm[Hg] mm[Hg] Method: Stand PULSE 2019-10-29 18:09:55 72 /min /min RESP RATE 2019-10-03 18:09:29 17 /min /min TEMP 2019-10-29 18:09:55 99.3 [degF] Procedures This patient has no known procedures. Results This patient has no known results.
--- OUTSIDE RECORDS SUMMARY | 2019-11-30 23:16 | XMS REPORT ---
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, impairment, [id number] so stated so stated Hypotension Hypotension Diagnosis Active Avis , , 10-13 Bacon unspecified unspecified [id number] Low back Low back Diagnosis Active Avis pain pain 10-13 Bacon [id number] Benign Benign Diagnosis Active 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 hyperplasia hyperplasia [id number] with lower with lower urinary urinary tract tract symptoms symptoms Constipatio Constipatio Diagnosis Active Avis n, n, 10-13 Bacon unspecified unspecified [id number] Dizziness Dizziness Diagnosis Active Avis and and Bacon giddiness giddiness [id number] Personal Personal Diagnosis Active Avis history of history of Bacon urinary urinary [id number] (tract) (tract) infections infections History of History of Diagnosis Active Avis falling falling Bacon [id number] Pain frequent Pain Mgmt Active 2018-10 Carol pain 2-18 ([place]el) 10:50: Kurtis 00 [id number] Cardio edema Cardiovasc Active 2018-10 Carol ular 2-18 (Chanel) 10:50: Kurtis 00 [id number] Respiratory dyspnea Respirator Active 2018-10 Carol present y 2-18 ([place]) 10:50: Kurtis 00 [id number] Endo/Jermaine anti-coagul Endo/Jermaine Active 2018-10 Carol ation 2-18 ([place]el) therapy 10:50: [place] [id number] Sensory impaired Sensory Active 2018- Carol hearing 2-18 ([place]el) 10:50: [place] [id number] Integument pressure Integument Active 2019- Carol ulcer 2-18 ([place]el) present 10:50: [place] [id number] Integument skin Integument Active 2018-10 Carol integrity 2-18 ([place]el) risk 10:50: [place] [id number] Elimination urinary Eliminatio Active 2018-10 Carol incontinenc n 2-18 ([place]) e 10:50: [place] [id number] Neuro confusion Neuro/Emot Active 2018-10 Carol present ion 2-18 ([place]) 10:50: [place] [id number] Neuro impaired Neuro/Emot Active 2018-10 Carol decision-ma ion 2-18 ([place]) savana 10:50: [place] [id number] Neuro memory Neuro/Emot Active 2018-10 Carol deficit ion 2-18 ([place]el) needing 10:50: [place] supervision 00 [id number] Activity ADL Activity Active 2018-10 Carol assistance 2-18 ([place]el) required 10:50: [place] [id number] Activity self-care Activity Active 2018-10 Carol deficit 2-18 ([place]el) 10:50: [place] [id number] Safety fall risk Safety Active 2018- Carol factor 2-18 ([place]el) present 10:50: [place] [id number] Safety knowledge/s Safety Active 2018- QUALITY kill 2-18 REALTIME deficit: pt 10:50: 00 Safety cannot be Safety Active 2019- Carol left alone 2-18 ([place]el) 10:50: [place] [id number] Safety risk for Safety Active 2019- Carol hospitaliza 2-18 ([place]) tion 10:50: [place] [id number] Medication oral med Meds Active 2018- Carol assistance 2-18 ([place]) required 10:50: [place] 00 [id number] Musculoskel transfer Musculoske Active 2018-10 Carol etal assistance letal 2-18 ([place]) required 10:50: [place] [id number] Musculoskel requires Musculoske Active 2018-10 Carol etal human letal 2-18 ([place]el) assist to 10:50: [place] leave home 00 [id number] Nutrition nutritional Nutrition Active 2018-10 Avis restriction 2-18 Bacon s 13:25: [id number] Bed transfer PT/OT: Bed Active 2018-10 Avis Mobility/Tr deficit: Mobility/T 2-18 Bacon ansfer sit/stand ransfer 13:25: [id number] 00 Bed transfer PT/OT: Bed Active 2018-10 Avis Mobility/Tr deficit: Mobility/T 2-18 Bacon ansfer standing ransfer 13:25: [id number] pivot 00 Bed transfer PT/OT: Bed Active 2018-10 Avis Mobility/Tr deficit: Mobility/T 2-18 Bacon ansfer toilet/comm ransfer 13:25: [id number] ode 00 Bed knowledge/s PT/OT: Bed Active 2018-10 Avis Mobility/Tr kill Mobility/T 2-18 Bacon ansfer deficit: pt ransfer 13:25: [id number] 00 Bed bed PT/OT: Bed Active 2018-10 Avis Mobility/Tr mobility Mobility/T 2-18 Bacon ansfer deficit ransfer 13:25: [id number] 00 Balance/End balance/hog cooler PT/OT: Active 2018-10 Avis urance rdination Balance/En 2-18 Bacon deficit durance 13:25: [id number] Balance/End endurance PT/OT: Active 2018-10 Avis urance deficit Balance/En 2-18 Bacon durance 13:25: [id number] 00 Balance/End knowledge/s PT/OT: Active 2018-10 Avis urance kill Balance/En 2-18 Bacon deficit: pt durance 13:25: [id number] 00 Gait/Locomo gait PT/OT: Active 2018-10 Avis tion deficit Gait/Locom 2-18 Bacon problems otion 13:25: [id number] 00 Gait/Locomo knowledge/s PT/OT: Active 2018-10 Avis tion kill Gait/Locom 2-18 Bacon problems deficit: pt otion 13:25: [id number] 00 Allergies, Adverse Reactions, Alerts Allergy Name [...] Observation Time Observation Value Comments SYSTOLIC mm[Hg] 2019-10-25 18:09:51 105 mm[Hg] mm[Hg] Method: Sit SYSTOLIC mm[Hg] 2019-10-03 18:09:29 118 mm[Hg] mm[Hg] Method: Stand DIASTOLIC mm[Hg] 2019-10-25 18:09:51 60 mm[Hg] mm[Hg] Method: Sit DIASTOLIC mm[Hg] 2019-10-03 18:09:29 80 mm[Hg] mm[Hg] Method: Stand PULSE 2019-10-25 18:09:51 80 /min /min RESP RATE 2019-10-03 18:09:29 17 /min /min TEMP 2019-10-25 18:09:51 98.9 [degF] Procedures This patient has no known procedures. Results This patient has no known results.
--- OUTSIDE RECORDS SUMMARY | 2019-11-30 23:16 | XMS REPORT ---
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, impairment, [id number] so stated so stated Hypotension Hypotension Diagnosis Active Avis , , 10-13 Bacon unspecified unspecified [id number] Low back Low back Diagnosis Active Avis pain pain 10-13 Bacon [id number] Benign Benign Diagnosis Active 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 hyperplasia hyperplasia [id number] with lower with lower urinary urinary tract tract symptoms symptoms Constipatio Constipatio Diagnosis Active Avis n, n, 10-13 Bacon unspecified unspecified [id number] Dizziness Dizziness Diagnosis Active Avis and and Bacon giddiness giddiness [id number] Personal Personal Diagnosis Active Avis history of history of Bacon urinary urinary [id number] (tract) (tract) infections infections History of History of Diagnosis Active Avis falling falling Bacon [id number] Pain frequent Pain Mgmt Active 2018-10 Carol pain 2-18 ([place]) 10:50: Kurtis 00 [id number] Cardio edema Cardiovasc Active 2018-10 Carol ular 2-18 ([place]) 10:50: Kurtis 00 [id number] Respiratory dyspnea Respirator Active 2018-10 Carol present y 2-18 ([place]) 10:50: Kurtis 00 [id number] Endo/Jermaine anti-coagul Endo/Jermaine Active 2018-10 Carol ation 2-18 ([place]) therapy 10:50: [place] [id number] Sensory impaired Sensory Active 2018- Carol hearing 2-18 ([place]) 10:50: [place] [id number] Integument pressure Integument Active 2019- Carol ulcer 2-18 ([place]) present 10:50: [place] [id number] Integument skin Integument Active 2018-10 Carol integrity 2-18 ([place]) risk 10:50: [place] [id number] Elimination urinary Eliminatio Active 2018-10 Carol incontinenc n 2-18 ([place]) e 10:50: [place] [id number] Neuro confusion Neuro/Emot Active 2018-10 Carol present ion 2-18 ([place]) 10:50: [place] [id number] Neuro impaired Neuro/Emot Active 2018-10 Carol decision-ma ion 2-18 ([place]) savana 10:50: [place] [id number] Neuro memory Neuro/Emot Active 2018-10 Carol deficit ion 2-18 ([place]) needing 10:50: [place] supervision 00 [id number] Activity ADL Activity Active 2018-10 Carol assistance 2-18 ([place]) required 10:50: [place] [id number] Activity self-care Activity Active 2018-10 Carol deficit 2-18 ([place]) 10:50: [place] [id number] Safety fall risk Safety Active 2018- Carol factor 2-18 ([place]) present 10:50: [place] [id number] Safety knowledge/s Safety Active 2018- QUALITY kill 2-18 REALTIME deficit: pt 10:50: 00 Safety cannot be Safety Active 2019- Carol left alone 2-18 ([place]) 10:50: [place] [id number] Safety risk for Safety Active 2019- Carol hospitaliza 2-18 ([place]) tion 10:50: [place] [id number] Medication oral med Meds Active 2018- Carol assistance 2-18 ([place]) required 10:50: [place] 00 [id number] Musculoskel transfer Musculoske Active 2018-10 Carol etal assistance letal 2-18 ([place]) required 10:50: [place] [id number] Musculoskel requires Musculoske Active 2018-10 Carol etal human letal 2-18 ([place]) assist to 10:50: [place] leave home 00 [id number] Nutrition nutritional Nutrition Active 2018-10 Avis restriction 2-18 Bacon s 13:25: [id number] Bed transfer PT/OT: Bed Active 2018-10 Avis Mobility/Tr deficit: Mobility/T 2-18 Bacon ansfer sit/stand ransfer 13:25: [id number] Bed transfer PT/OT: Bed Active 2018-10 Avis Mobility/Tr deficit: Mobility/T 2-18 Bacon ansfer standing ransfer 13:25: [id number] pivot 00 Bed transfer PT/OT: Bed Active 2018-10 Avis Mobility/Tr deficit: Mobility/T 2-18 Bacon ansfer toilet/comm ransfer 13:25: [id number] ode 00 Bed knowledge/s PT/OT: Bed Active 2018-10 Avis Mobility/Tr kill Mobility/T 2-18 Bacon ansfer deficit: pt ransfer 13:25: [id number] Bed bed PT/OT: Bed Active 2018-10 Avis Mobility/Tr mobility Mobility/T 2-18 Bacon ansfer deficit ransfer 13:25: [id number] Balance/End balance/branch operations coordinator PT/OT: Active 2018-10 Avis urance rdination Balance/En 2-18 Bacon deficit durance 13:25: [id number] Balance/End endurance PT/OT: Active 2018-10 Avis urance deficit Balance/En 2-18 Bacon durance 13:25: [id number] Balance/End knowledge/s PT/OT: Active 2018-10 Avis urance kill Balance/En 2-18 Bacon deficit: pt durance 13:25: [id number] Gait/Locomo gait PT/OT: Active 2018-10 Avis tion deficit Gait/Locom 2-18 Bacon problems otion 13:25: [id number] Gait/Locomo knowledge/s PT/OT: Active 2018-10 Avis tion kill Gait/Locom 2-18 Bacon problems deficit: pt otion 13:25: [id number] 00 Allergies, Adverse Reactions, Alerts Allergy Name [...] Observation Time Observation Value Comments SYSTOLIC mm[Hg] 2019-10-19 18:09:45 102 mm[Hg] mm[Hg] Method: Sit SYSTOLIC mm[Hg] 2019-10-03 18:09:29 118 mm[Hg] mm[Hg] Method: Stand DIASTOLIC mm[Hg] 2019-10-19 18:09:45 80 mm[Hg] mm[Hg] Method: Sit DIASTOLIC mm[Hg] 2019-10-03 18:09:29 80 mm[Hg] mm[Hg] Method: Stand PULSE 2019-10-19 18:09:45 92 /min /min RESP RATE 2019-10-03 18:09:29 17 /min /min TEMP 2019-10-19 18:09:45 99.2 [degF] Procedures This patient has no known procedures. Results This patient has no known results.
--- OUTSIDE RECORDS SUMMARY | 2019-11-30 23:16 | XMS REPORT ---
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, impairment, [id number] so stated so stated Hypotension Hypotension Diagnosis Active Avis , , 10-13 Bacon unspecified unspecified [id number] Low back Low back Diagnosis Active Avis pain pain 10-13 Bacon [id number] Benign Benign Diagnosis Active 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 hyperplasia hyperplasia [id number] with lower with lower urinary urinary tract tract symptoms symptoms Constipatio Constipatio Diagnosis Active Avis n, n, 10-13 Bacon unspecified unspecified [id number] Dizziness Dizziness Diagnosis Active Avis and and Bacon giddiness giddiness [id number] Personal Personal Diagnosis Active Avis history of history of Bacon urinary urinary [id number] (tract) (tract) infections infections History of History of Diagnosis Active Avis falling falling Bacon [id number] Pain frequent Pain Mgmt Active 2018-10 Carol pain 2-18 ([place]) 10:50: Kurtis 00 [id number] Cardio edema Cardiovasc Active 2018-10 Carol ular 2-18 ([place]) 10:50: Kurtis 00 [id number] Respiratory dyspnea Respirator Active 2018-10 Carol present y 2-18 ([place]) 10:50: Kurtis 00 [id number] Endo/Jermaine anti-coagul Endo/Jermaine Active 2018-10 Carol ation 2-18 ([place]) therapy 10:50: [place] [id number] Sensory impaired Sensory Active 2018- Carol hearing 2-18 ([place]) 10:50: [place] [id number] Integument pressure Integument Active 2019- Carol ulcer 2-18 ([place]) present 10:50: [place] [id number] Integument skin Integument Active 2018-10 Carol integrity 2-18 ([place]) risk 10:50: [place] [id number] Elimination urinary Eliminatio Active 2018-10 Carol incontinenc n 2-18 ([place]) e 10:50: [place] [id number] Neuro confusion Neuro/Emot Active 2018-10 Carol present ion 2-18 ([place]) 10:50: [place] [id number] Neuro impaired Neuro/Emot Active 2018-10 Carol decision-ma ion 2-18 ([place]) savana 10:50: [place] [id number] Neuro memory Neuro/Emot Active 2018-10 Carol deficit ion 2-18 ([place]) needing 10:50: [place] supervision 00 [id number] Activity ADL Activity Active 2018-10 Carol assistance 2-18 ([place]) required 10:50: [place] [id number] Activity self-care Activity Active 2018-10 Carol deficit 2-18 ([place]) 10:50: [place] [id number] Safety fall risk Safety Active 2018- Carol factor 2-18 ([place]) present 10:50: [place] [id number] Safety knowledge/s Safety Active 2018- QUALITY kill 2-18 REALTIME deficit: pt 10:50: 00 Safety cannot be Safety Active 2019- Carol left alone 2-18 ([place]) 10:50: [place] [id number] Safety risk for Safety Active 2019- Carol hospitaliza 2-18 ([place]) tion 10:50: [place] [id number] Medication oral med Meds Active 2018- Carol assistance 2-18 ([place]) required 10:50: [place] 00 [id number] Musculoskel transfer Musculoske Active 2018-10 Carol etal assistance letal 2-18 ([place]) required 10:50: [place] [id number] Musculoskel requires Musculoske Active 2018-10 Carol etal human letal 2-18 ([place]) assist to 10:50: [place] leave home 00 [id number] Nutrition nutritional Nutrition Active 2018-10 Avis restriction 2-18 Bacon s 13:25: [id number] Bed transfer PT/OT: Bed Active 2018-10 Avis Mobility/Tr deficit: Mobility/T 2-18 Bacon ansfer sit/stand ransfer 13:25: [id number] Bed transfer PT/OT: Bed Active 2018-10 Avis Mobility/Tr deficit: Mobility/T 2-18 Bacon ansfer standing ransfer 13:25: [id number] pivot 00 Bed transfer PT/OT: Bed Active 2018-10 Avis Mobility/Tr deficit: Mobility/T 2-18 Bacon ansfer toilet/comm ransfer 13:25: [id number] ode 00 Bed knowledge/s PT/OT: Bed Active 2018-10 Avis Mobility/Tr kill Mobility/T 2-18 Bacon ansfer deficit: pt ransfer 13:25: [id number] Bed bed PT/OT: Bed Active 2018-10 Avis Mobility/Tr mobility Mobility/T 2-18 Bacon ansfer deficit ransfer 13:25: [id number] Balance/End balance/outreach coordinator PT/OT: Active 2018-10 Avis urance rdination Balance/En 2-18 Bacon deficit durance 13:25: [id number] Balance/End endurance PT/OT: Active 2018-10 Avis urance deficit Balance/En 2-18 Bacon durance 13:25: [id number] Balance/End knowledge/s PT/OT: Active 2018-10 Avis urance kill Balance/En 2-18 Bacon deficit: pt durance 13:25: [id number] Gait/Locomo gait PT/OT: Active 2018-10 Avis tion deficit Gait/Locom 2-18 Bacon problems otion 13:25: [id number] Gait/Locomo knowledge/s PT/OT: Active 2018-10 Avis tion kill Gait/Locom 2-18 Bacon problems deficit: pt otion 13:25: [id number] 00 Allergies, Adverse Reactions, Alerts Allergy Name [...] Bettie Unknown Unknown n AREDS-2 n AREDS-2 Bnenie WALLACE 250 mg-200 250 mg-200 unit-40 unit-40 [...] 2-18 Bennie WALLACE finasteride finasteride 2018-10 Yes Bettei Unknown Unknown 5 mg tablet 5 mg [...]
--- OUTSIDE RECORDS SUMMARY | 2019-11-30 23:16 | XMS REPORT ---
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, impairment, [id number] so stated so stated Hypotension Hypotension Diagnosis Active Avis , , 10-13 Bacon unspecified unspecified [id number] Low back Low back Diagnosis Active Avis pain pain 10-13 Bacon [id number] Benign Benign Diagnosis Active 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 hyperplasia hyperplasia [id number] with lower with lower urinary urinary tract tract symptoms symptoms Constipatio Constipatio Diagnosis Active Avis n, n, 10-13 Bacon unspecified unspecified [id number] Dizziness Dizziness Diagnosis Active Avis and and Bacon giddiness giddiness [id number] Personal Personal Diagnosis Active Avis history of history of Bacon urinary urinary [id number] (tract) (tract) infections infections History of History of Diagnosis Active Avis falling falling Bacon [id number] Pain frequent Pain Mgmt Active 2018-10 Carol pain 2-18 ([place]) 10:50: Kurtis 00 [id number] Cardio edema Cardiovasc Active 2018-10 Carol ular 2-18 ([place]) 10:50: Kurtis 00 [id number] Respiratory dyspnea Respirator Active 2018-10 Carol present y 2-18 ([place]) 10:50: Kurtis 00 [id number] Endo/Jermaine anti-coagul Endo/Jermaine Active 2018-10 Carol ation 2-18 ([place]) therapy 10:50: [place] [id number] Sensory impaired Sensory Active 2018- Carol hearing 2-18 ([place]) 10:50: [place] [id number] Integument pressure Integument Active 2019- Carol ulcer 2-18 ([place]) present 10:50: [place] [id number] Integument skin Integument Active 2018-10 Carol integrity 2-18 ([place]) risk 10:50: [place] [id number] Elimination urinary Eliminatio Active 2018-10 Carol incontinenc n 2-18 ([place]) e 10:50: [place] [id number] Neuro confusion Neuro/Emot Active 2018-10 Carol present ion 2-18 ([place]) 10:50: [place] [id number] Neuro impaired Neuro/Emot Active 2018-10 Carol decision-ma ion 2-18 ([place]) savana 10:50: [place] [id number] Neuro memory Neuro/Emot Active 2018-10 Carol deficit ion 2-18 ([place]) needing 10:50: [place] supervision 00 [id number] Activity ADL Activity Active 2018-10 Carol assistance 2-18 ([place]) required 10:50: [place] [id number] Activity self-care Activity Active 2018-10 Carol deficit 2-18 ([place]) 10:50: [place] [id number] Safety fall risk Safety Active 2018- Carol factor 2-18 ([place]) present 10:50: [place] [id number] Safety knowledge/s Safety Active 2018- QUALITY kill 2-18 REALTIME deficit: pt 10:50: 00 Safety cannot be Safety Active 2019- Carol left alone 2-18 ([place]) 10:50: [place] [id number] Safety risk for Safety Active 2019- Carol hospitaliza 2-18 ([place]) tion 10:50: [place] [id number] Medication oral med Meds Active 2018- Carol assistance 2-18 ([place]) required 10:50: [place] 00 [id number] Musculoskel transfer Musculoske Active 2018-10 Carol etal assistance letal 2-18 ([place]) required 10:50: [place] [id number] Musculoskel requires Musculoske Active 2018-10 Carol etal human letal 2-18 ([place]) assist to 10:50: [place] leave home 00 [id number] Nutrition nutritional Nutrition Active 2018-10 Avis restriction 2-18 Bacon s 13:25: [id number] Bed transfer PT/OT: Bed Active 2018-10 Avis Mobility/Tr deficit: Mobility/T 2-18 Bacon ansfer sit/stand ransfer 13:25: [id number] 00 Bed transfer PT/OT: Bed Active 2018-10 Avis Mobility/Tr deficit: Mobility/T 2-18 Bacon ansfer standing ransfer 13:25: [id number] pivot 00 Bed transfer PT/OT: Bed Active 2018-10 Avis Mobility/Tr deficit: Mobility/T 2-18 Bacon ansfer toilet/comm ransfer 13:25: [id number] ode 00 Bed knowledge/s PT/OT: Bed Active 2018-10 Avis Mobility/Tr kill Mobility/T 2-18 Bacon ansfer deficit: pt ransfer 13:25: [id number] 00 Bed bed PT/OT: Bed Active 2018-10 Avis Mobility/Tr mobility Mobility/T 2-18 Bacon ansfer deficit ransfer 13:25: [id number] Balance/End balance/background check coordinator PT/OT: Active 2018-10 Avis urance rdination Balance/En 2-18 Bacon deficit durance 13:25: [id number] 00 Balance/End endurance PT/OT: Active 2018-10 Avis urance deficit Balance/En 2-18 Bacon durance 13:25: [id number] Balance/End knowledge/s PT/OT: Active 2018-10 Avis urance kill Balance/En 2-18 Bacon deficit: pt durance 13:25: [id number] Gait/Locomo gait PT/OT: Active 2018-10 Avis tion deficit Gait/Locom 2-18 Bacon problems otion 13:25: [id number] 00 Gait/Locomo knowledge/s PT/OT: Active 2018-10 Avis tion kill Gait/Locom 2-18 Bacon problems deficit: pt otion 13:25: [id number] 00 Allergies, Adverse Reactions, Alerts Allergy Name [...] Observation Time Observation Value Comments SYSTOLIC mm[Hg] 2019-10-22 18:09:48 102 mm[Hg] mm[Hg] Method: Sit SYSTOLIC mm[Hg] 2019-10-03 18:09:29 118 mm[Hg] mm[Hg] Method: Stand DIASTOLIC mm[Hg] 2019-10-22 18:09:48 60 mm[Hg] mm[Hg] Method: Sit DIASTOLIC mm[Hg] 2019-10-03 18:09:29 80 mm[Hg] mm[Hg] Method: Stand PULSE 2019-10-22 18:09:48 96 /min /min RESP RATE 2019-10-03 18:09:29 17 /min /min TEMP 2019-10-22 18:09:48 98.5 [degF] Procedures This patient has no known procedures. Results This patient has no known results.
--- OUTSIDE RECORDS SUMMARY | 2019-11-30 23:16 | XMS REPORT ---
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, impairment, [id number] so stated so stated Hypotension Hypotension Diagnosis Active Avis , , 10-13 Bacon unspecified unspecified [id number] Low back Low back Diagnosis Active Avis pain pain 10-13 Bacon [id number] Benign Benign Diagnosis Active 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 hyperplasia hyperplasia [id number] with lower with lower urinary urinary tract tract symptoms symptoms Constipatio Constipatio Diagnosis Active Avis n, n, 10-13 Bacon unspecified unspecified [id number] Dizziness Dizziness Diagnosis Active Avis and and Bacon giddiness giddiness [id number] Personal Personal Diagnosis Active Avis history of history of Bacon urinary urinary [id number] (tract) (tract) infections infections History of History of Diagnosis Active Avis falling falling Bacon [id number] Pain frequent Pain Mgmt Active 2018-10 Carol pain 2-18 ([place]) 10:50: Kurtis 00 [id number] Cardio edema Cardiovasc Active 2018-10 Carol ular 2-18 ([place]el) 10:50: Kurtis 00 [id number] Respiratory dyspnea Respirator Active 2018-10 Carol present y 2-18 ([place]) 10:50: Kurtis 00 [id number] Endo/Jermaine anti-coagul Endo/Jermaine Active 2018-10 Carol ation 2-18 ([place]) therapy 10:50: [place] [id number] Sensory impaired Sensory Active 2018- Carol hearing 2-18 ([place]) 10:50: [place] [id number] Integument pressure Integument Active 2019- Carol ulcer 2-18 ([place]) present 10:50: [place] [id number] Integument skin Integument Active 2018-10 Carol integrity 2-18 ([place]) risk 10:50: [place] [id number] Elimination urinary Eliminatio Active 2018-10 Carol incontinenc n 2-18 ([place]) e 10:50: [place] [id number] Neuro confusion Neuro/Emot Active 2018-10 Carol present ion 2-18 ([place]) 10:50: [place] [id number] Neuro impaired Neuro/Emot Active 2018-10 Carol decision-ma ion 2-18 ([place]) savana 10:50: [place] [id number] Neuro memory Neuro/Emot Active 2018-10 Carol deficit ion 2-18 ([place]) needing 10:50: [place] supervision 00 [id number] Activity ADL Activity Active 2018-10 Carol assistance 2-18 ([place]) required 10:50: [place] [id number] Activity self-care Activity Active 2018-10 Carol deficit 2-18 ([place]) 10:50: [place] [id number] Safety fall risk Safety Active 2018- Carol factor 2-18 ([place]) present 10:50: [place] [id number] Safety knowledge/s Safety Active 2018- QUALITY kill 2-18 REALTIME deficit: pt 10:50: 00 Safety cannot be Safety Active 2019- Carol left alone 2-18 ([place]) 10:50: [place] [id number] Safety risk for Safety Active 2019- Carol hospitaliza 2-18 ([place]) tion 10:50: [place] [id number] Medication oral med Meds Active 2018- Carol assistance 2-18 ([place]) required 10:50: [place] 00 [id number] Musculoskel transfer Musculoske Active 2018-10 Carol etal assistance letal 2-18 ([place]) required 10:50: [place] [id number] Musculoskel requires Musculoske Active 2018-10 Carol etal human letal 2-18 ([place]) assist to 10:50: [place] leave home 00 [id number] Nutrition nutritional Nutrition Active 2018-10 Avis restriction 2-18 Bacon s 13:25: [id number] Bed transfer PT/OT: Bed Active 2018-10 Avis Mobility/Tr deficit: Mobility/T 2-18 Bacon ansfer sit/stand ransfer 13:25: [id number] 00 Bed transfer PT/OT: Bed Active 2018-10 Avis Mobility/Tr deficit: Mobility/T 2-18 Bacon ansfer standing ransfer 13:25: [id number] pivot 00 Bed transfer PT/OT: Bed Active 2018-10 Avis Mobility/Tr deficit: Mobility/T 2-18 Bacon ansfer toilet/comm ransfer 13:25: [id number] ode 00 Bed knowledge/s PT/OT: Bed Active 2018-10 Avis Mobility/Tr kill Mobility/T 2-18 Bacon ansfer deficit: pt ransfer 13:25: [id number] 00 Bed bed PT/OT: Bed Active 2018-10 Avis Mobility/Tr mobility Mobility/T 2-18 Bacon ansfer deficit ransfer 13:25: [id number] 00 Balance/End balance/economic development coordinator PT/OT: Active 2018-10 Avis urance rdination Balance/En 2-18 Bacon deficit durance 13:25: [id number] 00 Balance/End endurance PT/OT: Active 2018-10 Avis urance deficit Balance/En 2-18 Bacon durance 13:25: [id number] 00 Balance/End knowledge/s PT/OT: Active 2018-10 Avis urance kill Balance/En 2-18 Bacon deficit: pt durance 13:25: [id number] Gait/Locomo gait PT/OT: Active 2018-10 Avis tion deficit Gait/Locom 2-18 Bacon problems otion 13:25: [id number] 00 Gait/Locomo knowledge/s PT/OT: Active 2018-10 Avis tion kill Gait/Locom 2-18 Bacon problems deficit: pt otion 13:25: [id number] 00 Allergies, Adverse Reactions, Alerts Allergy Name [...]
--- OUTSIDE RECORDS SUMMARY | 2019-11-30 23:16 | XMS REPORT ---
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, impairment, [id number] so stated so stated Hypotension Hypotension Diagnosis Active Avis , , 10-13 Bacon unspecified unspecified [id number] Low back Low back Diagnosis Active Avis pain pain 10-13 Bacon [id number] Benign Benign Diagnosis Active 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 hyperplasia hyperplasia [id number] with lower with lower urinary urinary tract tract symptoms symptoms Constipatio Constipatio Diagnosis Active Avis n, n, 10-13 Bacon unspecified unspecified [id number] Dizziness Dizziness Diagnosis Active Avis and and Bacon giddiness giddiness [id number] Personal Personal Diagnosis Active Avis history of history of Bacon urinary urinary [id number] (tract) (tract) infections infections History of History of Diagnosis Active Avis falling falling Bacon [id number] Pain frequent Pain Mgmt Active 2018-10 Carol pain 2-18 (Chan[place]) 10:50: Kurtis 00 [id number] Cardio edema Cardiovasc Active 2018-10 Carol ular 2-18 ([place]) 10:50: Kurtis 00 [id number] Respiratory dyspnea Respirator Active 2018-10 Carol present y 2-18 ([place]) 10:50: Kurtis 00 [id number] Endo/Jermaine anti-coagul Endo/Jermaine Active 2018-10 Carol ation 2-18 ([place]) therapy 10:50: [place] [id number] Sensory impaired Sensory Active 2018- Carol hearing 2-18 ([place]) 10:50: [place] [id number] Integument pressure Integument Active 2019- Carol ulcer 2-18 ([place]) present 10:50: [place] [id number] Integument skin Integument Active 2018-10 Carol integrity 2-18 ([place]) risk 10:50: [place] [id number] Elimination urinary Eliminatio Active 2018-10 Carol incontinenc n 2-18 ([place]) e 10:50: [place] [id number] Neuro confusion Neuro/Emot Active 2018-10 Carol present ion 2-18 ([place]) 10:50: [place] [id number] Neuro impaired Neuro/Emot Active 2018-10 Carol decision-ma ion 2-18 ([place]) savana 10:50: [place] [id number] Neuro memory Neuro/Emot Active 2018-10 Carol deficit ion 2-18 ([place]) needing 10:50: [place] supervision 00 [id number] Activity ADL Activity Active 2018-10 Carol assistance 2-18 ([place]) required 10:50: [place] [id number] Activity self-care Activity Active 2018-10 Carol deficit 2-18 ([place]) 10:50: [place] [id number] Safety fall risk Safety Active 2018- Carol factor 2-18 ([place]) present 10:50: [place] [id number] Safety knowledge/s Safety Active 2018- QUALITY kill 2-18 REALTIME deficit: pt 10:50: 00 Safety cannot be Safety Active 2019- Carol left alone 2-18 ([place]) 10:50: [place] [id number] Safety risk for Safety Active 2019- Carol hospitaliza 2-18 ([place]) tion 10:50: [place] [id number] Medication oral med Meds Active 2018- Carol assistance 2-18 ([place]) required 10:50: [place] 00 [id number] Musculoskel transfer Musculoske Active 2018-10 Carol etal assistance letal 2-18 ([place]) required 10:50: [place] [id number] Musculoskel requires Musculoske Active 2018-10 Carol etal human letal 2-18 ([place]) assist to 10:50: [place] leave home 00 [id number] Nutrition nutritional Nutrition Active 2018-10 Avis restriction 2-18 Bacon s 13:25: [id number] Bed transfer PT/OT: Bed Active 2018-10 Avis Mobility/Tr deficit: Mobility/T 2-18 Bacon ansfer sit/stand ransfer 13:25: [id number] 00 Bed transfer PT/OT: Bed Active 2018-10 Avis Mobility/Tr deficit: Mobility/T 2-18 Bacon ansfer standing ransfer 13:25: [id number] pivot 00 Bed transfer PT/OT: Bed Active 2018-10 Avis Mobility/Tr deficit: Mobility/T 2-18 Bacon ansfer toilet/comm ransfer 13:25: [id number] ode 00 Bed knowledge/s PT/OT: Bed Active 2018-10 Avis Mobility/Tr kill Mobility/T 2-18 Bacon ansfer deficit: pt ransfer 13:25: [id number] Bed bed PT/OT: Bed Active 2018-10 Avis Mobility/Tr mobility Mobility/T 2-18 Bacon ansfer deficit ransfer 13:25: [id number] Balance/End balance/operations coordinator PT/OT: Active 2018-10 Avis urance rdination Balance/En 2-18 Bacon deficit durance 13:25: [id number] Balance/End endurance PT/OT: Active 2018-10 Avis urance deficit Balance/En 2-18 Bacon durance 13:25: [id number] Balance/End knowledge/s PT/OT: Active 2018-10 Avis urance kill Balance/En 2-18 Bacon deficit: pt durance 13:25: [id number] Gait/Locomo gait PT/OT: Active 2018-10 Avis tion deficit Gait/Locom 2-18 Bacon problems otion 13:25: [id number] 00 Gait/Locomo knowledge/s PT/OT: Active 2018-10 Avis tion kill Gait/Locom 2-18 Bacon problems deficit: pt otion 13:25: [id number] 00 Allergies, Adverse Reactions, Alerts Allergy Name [...]
--- OUTSIDE RECORDS SUMMARY | 2019-11-30 23:16 | XMS REPORT ---
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, impairment, [id number] so stated so stated Hypotension Hypotension Diagnosis Active Avis , , 10-13 Bacon unspecified unspecified [id number] Low back Low back Diagnosis Active Avis pain pain 10-13 Bacon [id number] Benign Benign Diagnosis Active 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 hyperplasia hyperplasia [id number] with lower with lower urinary urinary tract tract symptoms symptoms Constipatio Constipatio Diagnosis Active Avis n, n, 10-13 Bacon unspecified unspecified [id number] Dizziness Dizziness Diagnosis Active Avis and and Bacon giddiness giddiness [id number] Personal Personal Diagnosis Active Avis history of history of Bacon urinary urinary [id number] (tract) (tract) infections infections History of History of Diagnosis Active Avis falling falling Bacon [id number] Pain frequent Pain Mgmt Active 2018-10 Carol pain 2-18 ([place]) 10:50: Kurtis 00 [id number] Cardio edema Cardiovasc Active 2018-10 Carol ular 2-18 ([place]) 10:50: Kurtis 00 [id number] Respiratory dyspnea Respirator Active 2018-10 Carol present y 2-18 ([place]) 10:50: Kurtis 00 [id number] Endo/Jermaine anti-coagul Endo/Jermaine Active 2018-10 Carol ation 2-18 ([place]) therapy 10:50: [place] [id number] Sensory impaired Sensory Active 2018- Carol hearing 2-18 ([place]) 10:50: [place] [id number] Integument pressure Integument Active 2019- Carol ulcer 2-18 ([place]) present 10:50: [place] [id number] Integument skin Integument Active 2018-10 Carol integrity 2-18 ([place]) risk 10:50: [place] [id number] Elimination urinary Eliminatio Active 2018-10 Carol incontinenc n 2-18 ([place]) e 10:50: [place] [id number] Neuro confusion Neuro/Emot Active 2018-10 Carol present ion 2-18 ([place]) 10:50: [place] [id number] Neuro impaired Neuro/Emot Active 2018-10 Carol decision-ma ion 2-18 ([place]) savana 10:50: [place] [id number] Neuro memory Neuro/Emot Active 2018-10 Carol deficit ion 2-18 ([place]) needing 10:50: [place] supervision 00 [id number] Activity ADL Activity Active 2018-10 Carol assistance 2-18 ([place]) required 10:50: [place] [id number] Activity self-care Activity Active 2018-10 Carol deficit 2-18 ([place]) 10:50: [place] [id number] Safety fall risk Safety Active 2018- Carol factor 2-18 ([place]) present 10:50: [place] [id number] Safety knowledge/s Safety Active 2018- QUALITY kill 2-18 REALTIME deficit: pt 10:50: 00 Safety cannot be Safety Active 2019- Carol left alone 2-18 ([place]) 10:50: [place] [id number] Safety risk for Safety Active 2019- Carol hospitaliza 2-18 ([place]) tion 10:50: [place] [id number] Medication oral med Meds Active 2018- Carol assistance 2-18 ([place]) required 10:50: [place] 00 [id number] Musculoskel transfer Musculoske Active 2018-10 Carol etal assistance letal 2-18 ([place]) required 10:50: [place] [id number] Musculoskel requires Musculoske Active 2018-10 Carol etal human letal 2-18 ([place]) assist to 10:50: [place] leave home 00 [id number] Nutrition nutritional Nutrition Active 2018-10 Avis restriction 2-18 Bacon s 13:25: [id number] Bed transfer PT/OT: Bed Active 2018-10 Avis Mobility/Tr deficit: Mobility/T 2-18 Bacon ansfer sit/stand ransfer 13:25: [id number] Bed transfer PT/OT: Bed Active 2018-10 Avis Mobility/Tr deficit: Mobility/T 2-18 Bacon ansfer standing ransfer 13:25: [id number] pivot 00 Bed transfer PT/OT: Bed Active 2018-10 Avis Mobility/Tr deficit: Mobility/T 2-18 Bacon ansfer toilet/comm ransfer 13:25: [id number] ode 00 Bed knowledge/s PT/OT: Bed Active 2018-10 Avis Mobility/Tr kill Mobility/T 2-18 Bacon ansfer deficit: pt ransfer 13:25: [id number] 00 Bed bed PT/OT: Bed Active 2018-10 Avis Mobility/Tr mobility Mobility/T 2-18 Bacon ansfer deficit ransfer 13:25: [id number] Balance/End balance/nursing program coordinator PT/OT: Active 2018-10 Avis urance rdination Balance/En 2-18 Bacon deficit durance 13:25: [id number] Balance/End endurance PT/OT: Active 2018-10 Avis urance deficit Balance/En 2-18 Bacon durance 13:25: [id number] 00 Balance/End knowledge/s PT/OT: Active 2018-10 Avis urance kill Balance/En 2-18 Bacon deficit: pt durance 13:25: [id number] Gait/Locomo gait PT/OT: Active 2018-10 Avis tion deficit Gait/Locom 2-18 Bacon problems otion 13:25: [id number] 00 Gait/Locomo knowledge/s PT/OT: Active 2018-10 Avis tion kill Gait/Locom 2-18 Bacon problems deficit: pt otion 13:25: [id number] 00 Allergies, Adverse Reactions, Alerts Allergy Name [...] Observation Time Observation Value Comments SYSTOLIC mm[Hg] 2019-11-01 18:09:58 102 mm[Hg] mm[Hg] Method: Sit SYSTOLIC mm[Hg] 2019-10-03 18:09:29 118 mm[Hg] mm[Hg] Method: Stand DIASTOLIC mm[Hg] 2019-11-01 18:09:58 60 mm[Hg] mm[Hg] Method: Sit DIASTOLIC mm[Hg] 2019-10-03 18:09:29 80 mm[Hg] mm[Hg] Method: Stand PULSE 2019-11-01 18:09:58 84 /min /min RESP RATE 2019-10-03 18:09:29 17 /min /min TEMP 2019-11-01 18:09:58 98.4 [degF] Procedures This patient has no known procedures. Results This patient has no known results.
--- OUTSIDE RECORDS SUMMARY | 2019-11-30 23:16 | XMS REPORT ---
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, impairment, [id number] so stated so stated Hypotension Hypotension Diagnosis Active Avis , , 10-13 Bacon unspecified unspecified [id number] Low back Low back Diagnosis Active Avis pain pain 10-13 Bacon [id number] Benign Benign Diagnosis Active 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 hyperplasia hyperplasia [id number] with lower with lower urinary urinary tract tract symptoms symptoms Constipatio Constipatio Diagnosis Active Avis n, n, 10-13 Bacon unspecified unspecified [id number] Dizziness Dizziness Diagnosis Active Avis and and Bacon giddiness giddiness [id number] Personal Personal Diagnosis Active Avis history of history of Bacon urinary urinary [id number] (tract) (tract) infections infections History of History of Diagnosis Active Avis falling falling Bacon [id number] Pain frequent Pain Mgmt Active 2018-10 Carol pain 2-18 ([place]) 10:50: Kurtis 00 [id number] Cardio edema Cardiovasc Active 2018-10 Carol ular 2-18 ([place]) 10:50: Kurtis 00 [id number] Respiratory dyspnea Respirator Active 2018-10 Carol present y 2-18 ([place]) 10:50: Kurtis 00 [id number] Endo/Jermaine anti-coagul Endo/Jermaine Active 2018-10 Carol ation 2-18 ([place]) therapy 10:50: [place] [id number] Sensory impaired Sensory Active 2018- Carol hearing 2-18 ([place]) 10:50: [place] [id number] Integument pressure Integument Active 2019- Carol ulcer 2-18 ([place]) present 10:50: [place] [id number] Integument skin Integument Active 2018-10 Carol integrity 2-18 ([place]) risk 10:50: [place] [id number] Elimination urinary Eliminatio Active 2018-10 Carol incontinenc n 2-18 ([place]) e 10:50: [place] [id number] Neuro confusion Neuro/Emot Active 2018-10 Carol present ion 2-18 ([place]) 10:50: [place] [id number] Neuro impaired Neuro/Emot Active 2018-10 Carol decision-ma ion 2-18 ([place]) savana 10:50: [place] [id number] Neuro memory Neuro/Emot Active 2018-10 Carol deficit ion 2-18 ([place]) needing 10:50: [place] supervision 00 [id number] Activity ADL Activity Active 2018-10 Carol assistance 2-18 ([place]) required 10:50: [place] [id number] Activity self-care Activity Active 2018-10 Carol deficit 2-18 ([place]) 10:50: [place] [id number] Safety fall risk Safety Active 2018- Carol factor 2-18 ([place]) present 10:50: [place] [id number] Safety knowledge/s Safety Active 2018- QUALITY kill 2-18 REALTIME deficit: pt 10:50: 00 Safety cannot be Safety Active 2019- Carol left alone 2-18 ([place]) 10:50: [place] [id number] Safety risk for Safety Active 2019- Carol hospitaliza 2-18 ([place]) tion 10:50: [place] [id number] Medication oral med Meds Active 2018- Carol assistance 2-18 ([place]) required 10:50: [place] 00 [id number] Musculoskel transfer Musculoske Active 2018-10 Carol etal assistance letal 2-18 ([place]) required 10:50: [place] [id number] Musculoskel requires Musculoske Active 2018-10 Carol etal human letal 2-18 ([place]) assist to 10:50: [place] leave home 00 [id number] Nutrition nutritional Nutrition Active 2018-10 Avis restriction 2-18 Bacon s 13:25: [id number] 00 Bed transfer PT/OT: Bed Active 2018-10 Avis Mobility/Tr deficit: Mobility/T 2-18 Bacon ansfer sit/stand ransfer 13:25: [id number] 00 Bed transfer PT/OT: Bed Active 2018-10 Avis Mobility/Tr deficit: Mobility/T 2-18 Bacon ansfer standing ransfer 13:25: [id number] pivot 00 Bed transfer PT/OT: Bed Active 2018-10 Avis Mobility/Tr deficit: Mobility/T 2-18 Bacon ansfer toilet/comm ransfer 13:25: [id number] ode 00 Bed knowledge/s PT/OT: Bed Active 2018-10 Avis Mobility/Tr kill Mobility/T 2-18 Bacon ansfer deficit: pt ransfer 13:25: [id number] 00 Bed bed PT/OT: Bed Active 2018-10 Avis Mobility/Tr mobility Mobility/T 2-18 Bacon ansfer deficit ransfer 13:25: [id number] 00 Balance/End balance/inventory coordinator PT/OT: Active 2018-10 Avis urance rdination Balance/En 2-18 Bacon deficit durance 13:25: [id number] 00 Balance/End endurance PT/OT: Active 2018-10 Avis urance deficit Balance/En 2-18 Bacon durance 13:25: [id number] 00 Balance/End knowledge/s PT/OT: Active 2018-10 Avis urance kill Balance/En 2-18 Bacon deficit: pt durance 13:25: [id number] 00 Gait/Locomo gait PT/OT: Active 2018-10 Avis tion deficit Gait/Locom 2-18 Bacon problems otion 13:25: [id number] 00 Gait/Locomo knowledge/s PT/OT: Active 2018-10 Avis tion kill Gait/Locom 2-18 Bacon problems deficit: pt otion 13:25: [id number] 00 Allergies, Adverse Reactions, Alerts Allergy Name [...] Observation Time Observation Value Comments SYSTOLIC mm[Hg] 2019-11-04 18:10:01 102 mm[Hg] mm[Hg] Method: Sit SYSTOLIC mm[Hg] 2019-10-03 18:09:29 118 mm[Hg] mm[Hg] Method: Stand DIASTOLIC mm[Hg] 2019-11-04 18:10:01 65 mm[Hg] mm[Hg] Method: Sit DIASTOLIC mm[Hg] 2019-10-03 18:09:29 80 mm[Hg] mm[Hg] Method: Stand PULSE 2019-11-04 18:10:01 88 /min /min RESP RATE 2019-10-03 18:09:29 17 /min /min TEMP 2019-11-04 18:10:01 99.5 [degF] Procedures This patient has no known procedures. Results This patient has no known results.
--- OUTSIDE RECORDS SUMMARY | 2019-11-30 23:16 | XMS REPORT ---
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, impairment, [id number] so stated so stated Hypotension Hypotension Diagnosis Active Avis , , 10-13 Bacon unspecified unspecified [id number] Low back Low back Diagnosis Active Avis pain pain 10-13 Bacon [id number] Benign Benign Diagnosis Active 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 hyperplasia hyperplasia [id number] with lower with lower urinary urinary tract tract symptoms symptoms Constipatio Constipatio Diagnosis Active Avis n, n, 10-13 Bacon unspecified unspecified [id number] Dizziness Dizziness Diagnosis Active Avis and and Bacon giddiness giddiness [id number] Personal Personal Diagnosis Active Avis history of history of Bacon urinary urinary [id number] (tract) (tract) infections infections History of History of Diagnosis Active Avis falling falling Bacon [id number] Pain frequent Pain Mgmt Active 2018-10 Carol pain 2-18 ([place]) 10:50: Kurtis 00 [id number] Cardio edema Cardiovasc Active 2018-10 Carol ular 2-18 ([place]) 10:50: Kurtis 00 [id number] Respiratory dyspnea Respirator Active 2018-10 Carol present y 2-18 ([place]) 10:50: Kurtis 00 [id number] Endo/Jermaine anti-coagul Endo/Jermaine Active 2018-10 [place] ation 2-18 ([place]) therapy 10:50: [place] [id number] Sensory impaired Sensory Active 2018- Carol hearing 2-18 ([place]) 10:50: [place] [id number] Integument pressure Integument Active 2019- Carol ulcer 2-18 ([place]) present 10:50: [place] [id number] Integument skin Integument Active 2018-10 Carol integrity 2-18 ([place]) risk 10:50: [place] [id number] Elimination urinary Eliminatio Active 2018-10 Carol incontinenc n 2-18 ([place]) e 10:50: [place] [id number] Neuro confusion Neuro/Emot Active 2018-10 Carol present ion 2-18 ([place]) 10:50: [place] [id number] Neuro impaired Neuro/Emot Active 2018-10 Carol decision-ma ion 2-18 ([place]) savana 10:50: [place] [id number] Neuro memory Neuro/Emot Active 2018-10 Carol deficit ion 2-18 ([place]) needing 10:50: [place] supervision 00 [id number] Activity ADL Activity Active 2018-10 Carol assistance 2-18 ([place]) required 10:50: [place] [id number] Activity self-care Activity Active 2018-10 Carol deficit 2-18 ([place]) 10:50: [place] [id number] Safety fall risk Safety Active 2018- Carol factor 2-18 ([place]) present 10:50: [place] [id number] Safety knowledge/s Safety Active 2018- QUALITY kill 2-18 REALTIME deficit: pt 10:50: 00 Safety cannot be Safety Active 2019- Carol left alone 2-18 ([place]) 10:50: [place] [id number] Safety risk for Safety Active 2019- Carol hospitaliza 2-18 ([place]) tion 10:50: [place] [id number] Medication oral med Meds Active 2018- Carol assistance 2-18 ([place]) required 10:50: [place] 00 [id number] Musculoskel transfer Musculoske Active 2018-10 Carol etal assistance letal 2-18 ([place]) required 10:50: [place] [id number] Musculoskel requires Musculoske Active 2018-10 Carol etal human letal 2-18 ([place]) assist to 10:50: [place] leave home 00 [id number] Nutrition nutritional Nutrition Active 2018-10 Avis restriction 2-18 Bacon s 13:25: [id number] 00 Bed transfer PT/OT: Bed Active 2018-10 Avis Mobility/Tr deficit: Mobility/T 2-18 Bacon ansfer sit/stand ransfer 13:25: [id number] 00 Bed transfer PT/OT: Bed Active 2018-10 Avis Mobility/Tr deficit: Mobility/T 2-18 Bacon ansfer standing ransfer 13:25: [id number] pivot 00 Bed transfer PT/OT: Bed Active 2018-10 Avis Mobility/Tr deficit: Mobility/T 2-18 Bacon ansfer toilet/comm ransfer 13:25: [id number] ode 00 Bed knowledge/s PT/OT: Bed Active 2018-10 Avis Mobility/Tr kill Mobility/T 2-18 Bacon ansfer deficit: pt ransfer 13:25: [id number] 00 Bed bed PT/OT: Bed Active 2018-10 Avis Mobility/Tr mobility Mobility/T 2-18 Bacon ansfer deficit ransfer 13:25: [id number] 00 Balance/End balance/import coordinator PT/OT: Active 2018-10 Avis urance rdination Balance/En 2-18 Bacon deficit durance 13:25: [id number] 00 Balance/End endurance PT/OT: Active 2018-10 Avis urance deficit Balance/En 2-18 Bacon durance 13:25: [id number] 00 Balance/End knowledge/s PT/OT: Active 2018-10 Avis urance kill Balance/En 2-18 Bacon deficit: pt durance 13:25: [id number] 00 Gait/Locomo gait PT/OT: Active 2018-10 Avis tion deficit Gait/Locom 2-18 Bacon problems otion 13:25: [id number] 00 Gait/Locomo knowledge/s PT/OT: Active 2018-10 Avis tion kill Gait/Locom 2-18 Bacon problems deficit: pt otion 13:25: [id number] 00 Allergies, Adverse Reactions, Alerts Allergy Name [...]
--- OUTSIDE RECORDS SUMMARY | 2019-11-30 23:16 | XMS REPORT ---
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, impairment, [id number] so stated so stated Hypotension Hypotension Diagnosis Active Avis , , 10-13 Bacon unspecified unspecified [id number] Low back Low back Diagnosis Active Avis pain pain 10-13 Bacon [id number] Benign Benign Diagnosis Active 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 hyperplasia hyperplasia [id number] with lower with lower urinary urinary tract tract symptoms symptoms Constipatio Constipatio Diagnosis Active Avis n, n, 10-13 Bacon unspecified unspecified [id number] Dizziness Dizziness Diagnosis Active Avis and and Bacon giddiness giddiness [id number] Personal Personal Diagnosis Active Avis history of history of Bacon urinary urinary [id number] (tract) (tract) infections infections History of History of Diagnosis Active Avis falling falling Bacon [id number] Pain frequent Pain Mgmt Active 2018-10 Carol pain 2-18 (Chanel) 10:50: Kurtis 00 [id number] Cardio edema Cardiovasc Active 2018-10 Carol ular 2-18 ([place]) 10:50: Kurtis 00 [id number] Respiratory dyspnea Respirator Active 2018-10 Carol present y 2-18 ([place]) 10:50: Kurtis 00 [id number] Endo/Jermaine anti-coagul Endo/Jermaine Active 2018-10 Carol ation 2-18 ([place]) therapy 10:50: [place] [id number] Sensory impaired Sensory Active 2018- Carol hearing 2-18 ([place]) 10:50: [place] [id number] Integument pressure Integument Active 2019- Carol ulcer 2-18 ([place]) present 10:50: [place] [id number] Integument skin Integument Active 2018-10 Carol integrity 2-18 ([place]) risk 10:50: [place] [id number] Elimination urinary Eliminatio Active 2018-10 Carol incontinenc n 2-18 ([place]) e 10:50: [place] [id number] Neuro confusion Neuro/Emot Active 2018-10 Carol present ion 2-18 ([place]) 10:50: [place] [id number] Neuro impaired Neuro/Emot Active 2018-10 Carol decision-ma ion 2-18 ([place]) savana 10:50: [place] [id number] Neuro memory Neuro/Emot Active 2018-10 Carol deficit ion 2-18 ([place]) needing 10:50: [place] supervision 00 [id number] Activity ADL Activity Active 2018-10 Carol assistance 2-18 ([place]) required 10:50: [place] [id number] Activity self-care Activity Active 2018-10 Carol deficit 2-18 ([place]) 10:50: [place] [id number] Safety fall risk Safety Active 2018- Carol factor 2-18 ([place]) present 10:50: [place] [id number] Safety knowledge/s Safety Active 2018- QUALITY kill 2-18 REALTIME deficit: pt 10:50: 00 Safety cannot be Safety Active 2019- Carol left alone 2-18 ([place]) 10:50: [place] [id number] Safety risk for Safety Active 2019- Carol hospitaliza 2-18 ([place]) tion 10:50: [place] [id number] Medication oral med Meds Active 2018- Carol assistance 2-18 ([place]) required 10:50: [place] 00 [id number] Musculoskel transfer Musculoske Active 2018-10 Carol etal assistance letal 2-18 ([place]) required 10:50: [place] [id number] Musculoskel requires Musculoske Active 2018-10 Carol etal human letal 2-18 ([place]) assist to 10:50: [place] leave home 00 [id number] Nutrition nutritional Nutrition Active 2018-10 Avis restriction 2-18 Bacon s 13:25: [id number] Bed transfer PT/OT: Bed Active 2018-10 Avis Mobility/Tr deficit: Mobility/T 2-18 Bacon ansfer sit/stand ransfer 13:25: [id number] Bed transfer PT/OT: Bed Active 2018-10 Avis Mobility/Tr deficit: Mobility/T 2-18 Bacon ansfer standing ransfer 13:25: [id number] pivot 00 Bed transfer PT/OT: Bed Active 2018-10 Avis Mobility/Tr deficit: Mobility/T 2-18 Bacon ansfer toilet/comm ransfer 13:25: [id number] ode 00 Bed knowledge/s PT/OT: Bed Active 2018-10 Avis Mobility/Tr kill Mobility/T 2-18 Bacon ansfer deficit: pt ransfer 13:25: [id number] Bed bed PT/OT: Bed Active 2018-10 Avis Mobility/Tr mobility Mobility/T 2-18 Bacon ansfer deficit ransfer 13:25: [id number] 00 Balance/End balance/container coordinator PT/OT: Active 2018-10 Avis urance rdination Balance/En 2-18 Bacon deficit durance 13:25: [id number] Balance/End endurance PT/OT: Active 2018-10 Avis urance deficit Balance/En 2-18 Bacon durance 13:25: [id number] Balance/End knowledge/s PT/OT: Active 2018-10 Avis urance kill Balance/En 2-18 Bacon deficit: pt durance 13:25: [id number] Gait/Locomo gait PT/OT: Active 2018-10 Avis tion deficit Gait/Locom 2-18 Bacon problems otion 13:25: [id number] Gait/Locomo knowledge/s PT/OT: Active 2018-10 Avis tion kill Gait/Locom 2-18 Bacon problems deficit: pt otion 13:25: [id number] 00 Allergies, Adverse Reactions, Alerts Allergy Name [...]
--- OUTSIDE RECORDS SUMMARY | 2019-11-30 23:16 | XMS REPORT ---
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, impairment, [id number] so stated so stated Hypotension Hypotension Diagnosis Active Avis , , 10-13 Bacon unspecified unspecified [id number] Low back Low back Diagnosis Active Avis pain pain 10-13 Bacon [id number] Benign Benign Diagnosis Active 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 hyperplasia hyperplasia [id number] with lower with lower urinary urinary tract tract symptoms symptoms Constipatio Constipatio Diagnosis Active Avis n, n, 10-13 Bacon unspecified unspecified [id number] Dizziness Dizziness Diagnosis Active Avis and and Bacon giddiness giddiness [id number] Personal Personal Diagnosis Active Avis history of history of Bacon urinary urinary [id number] (tract) (tract) infections infections History of History of Diagnosis Active Avis falling falling Bacon [id number] Pain frequent Pain Mgmt Active 2018-10 Carol pain 2-18 ([place]) 10:50: Kurtis 00 [id number] Cardio edema Cardiovasc Active 2018-10 Carol ular 2-18 ([place]) 10:50: Kurtis 00 [id number] Respiratory dyspnea Respirator Active 2018-10 Carol present y 2-18 ([place]) 10:50: Kurtis 00 [id number] Endo/Jermaine anti-coagul Endo/Jermaine Active 2018-10 Carol ation 2-18 ([place]) therapy 10:50: [place] [id number] Sensory impaired Sensory Active 2018- Carol hearing 2-18 ([place]) 10:50: [place] [id number] Integument pressure Integument Active 2019- Carol ulcer 2-18 ([place]) present 10:50: [place] [id number] Integument skin Integument Active 2018-10 Carol integrity 2-18 ([place]) risk 10:50: [place] [id number] Elimination urinary Eliminatio Active 2018-10 Carol incontinenc n 2-18 ([place]) e 10:50: [place] [id number] Neuro confusion Neuro/Emot Active 2018-10 Carol present ion 2-18 ([place]) 10:50: [place] [id number] Neuro impaired Neuro/Emot Active 2018-10 Carol decision-ma ion 2-18 ([place]) savana 10:50: [place] [id number] Neuro memory Neuro/Emot Active 2018-10 Carol deficit ion 2-18 ([place]) needing 10:50: [place] supervision 00 [id number] Activity ADL Activity Active 2018-10 Carol assistance 2-18 ([place]) required 10:50: [place] [id number] Activity self-care Activity Active 2018-10 Carol deficit 2-18 ([place]) 10:50: [place] [id number] Safety fall risk Safety Active 2018- Carol factor 2-18 ([place]) present 10:50: [place] [id number] Safety knowledge/s Safety Active 2018- QUALITY kill 2-18 REALTIME deficit: pt 10:50: 00 Safety cannot be Safety Active 2019- Carol left alone 2-18 ([place]) 10:50: [place] [id number] Safety risk for Safety Active 2019- Carol hospitaliza 2-18 ([place]) tion 10:50: [place] [id number] Medication oral med Meds Active 2018- Carol assistance 2-18 ([place]) required 10:50: [place] 00 [id number] Musculoskel transfer Musculoske Active 2018-10 Carol etal assistance letal 2-18 ([place]) required 10:50: [place] [id number] Musculoskel requires Musculoske Active 2018-10 Carol etal human letal 2-18 ([place]) assist to 10:50: [place] leave home 00 [id number] Nutrition nutritional Nutrition Active 2018-10 Avis restriction 2-18 Bacon s 13:25: [id number] 00 Bed transfer PT/OT: Bed Active 2018-10 Avis Mobility/Tr deficit: Mobility/T 2-18 Bacon ansfer sit/stand ransfer 13:25: [id number] 00 Bed transfer PT/OT: Bed Active 2018-10 Avis Mobility/Tr deficit: Mobility/T 2-18 Bacon ansfer standing ransfer 13:25: [id number] pivot 00 Bed transfer PT/OT: Bed Active 2018-10 Avis Mobility/Tr deficit: Mobility/T 2-18 Bacon ansfer toilet/comm ransfer 13:25: [id number] ode 00 Bed knowledge/s PT/OT: Bed Active 2018-10 Avis Mobility/Tr kill Mobility/T 2-18 Bacon ansfer deficit: pt ransfer 13:25: [id number] Bed bed PT/OT: Bed Active 2018-10 Avis Mobility/Tr mobility Mobility/T 2-18 Bacon ansfer deficit ransfer 13:25: [id number] Balance/End balance/distribution coordinator PT/OT: Active 2018-10 Avis urance rdination Balance/En 2-18 Bacon deficit durance 13:25: [id number] 00 Balance/End endurance PT/OT: Active 2018-10 Avis urance deficit Balance/En 2-18 Bacon durance 13:25: [id number] Balance/End knowledge/s PT/OT: Active 2018-10 Avis urance kill Balance/En 2-18 Bacon deficit: pt durance 13:25: [id number] 00 Gait/Locomo gait PT/OT: Active 2018-10 Avis tion deficit Gait/Locom 2-18 Bacon problems otion 13:25: [id number] 00 Gait/Locomo knowledge/s PT/OT: Active 2018-10 Avis tion kill Gait/Locom 2-18 Bacon problems deficit: pt otion 13:25: [id number] 00 Allergies, Adverse Reactions, Alerts Allergy Name [...]
--- OUTSIDE RECORDS SUMMARY | 2019-11-30 23:16 | XMS REPORT ---
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, impairment, [id number] so stated so stated Hypotension Hypotension Diagnosis Active Avis , , 10-13 Bacon unspecified unspecified [id number] Low back Low back Diagnosis Active Avis pain pain 10-13 Bacon [id number] Benign Benign Diagnosis Active 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 hyperplasia hyperplasia [id number] with lower with lower urinary urinary tract tract symptoms symptoms Constipatio Constipatio Diagnosis Active Avis n, n, 10-13 Bacon unspecified unspecified [id number] Dizziness Dizziness Diagnosis Active Avis and and Bacon giddiness giddiness [id number] Personal Personal Diagnosis Active Avis history of history of Bacon urinary urinary [id number] (tract) (tract) infections infections History of History of Diagnosis Active Avis falling falling Bacon [id number] Pain frequent Pain Mgmt Active 2018-10 Carol pain 2-18 (Chanel) 10:50: Kurtis 00 [id number] Cardio edema Cardiovasc Active 2018-10 Carol ular 2-18 ([place]) 10:50: Kurtis 00 [id number] Respiratory dyspnea Respirator Active 2018-10 Carol present y 2-18 ([place]) 10:50: Kurtis 00 [id number] Endo/Jermaine anti-coagul Endo/Jermaine Active 2018-10 Carol ation 2-18 ([place]) therapy 10:50: [place] [id number] Sensory impaired Sensory Active 2018- Carol hearing 2-18 ([place]) 10:50: [place] [id number] Integument pressure Integument Active 2019- Carol ulcer 2-18 ([place]) present 10:50: [place] [id number] Integument skin Integument Active 2018-10 Carol integrity 2-18 ([place]) risk 10:50: [place] [id number] Elimination urinary Eliminatio Active 2018-10 Carol incontinenc n 2-18 ([place]) e 10:50: [place] [id number] Neuro confusion Neuro/Emot Active 2018-10 Carol present ion 2-18 ([place]) 10:50: [place] [id number] Neuro impaired Neuro/Emot Active 2018-10 Carol decision-ma ion 2-18 ([place]) savana 10:50: [place] [id number] Neuro memory Neuro/Emot Active 2018-10 Carol deficit ion 2-18 ([place]) needing 10:50: [place] supervision 00 [id number] Activity ADL Activity Active 2018-10 Carol assistance 2-18 ([place]) required 10:50: [place] [id number] Activity self-care Activity Active 2018-10 Carol deficit 2-18 ([place]) 10:50: [place] [id number] Safety fall risk Safety Active 2018- Carol factor 2-18 ([place]) present 10:50: [place] [id number] Safety knowledge/s Safety Active 2018- QUALITY kill 2-18 REALTIME deficit: pt 10:50: 00 Safety cannot be Safety Active 2019- Carol left alone 2-18 ([place]) 10:50: [place] [id number] Safety risk for Safety Active 2019- Carol hospitaliza 2-18 ([place]) tion 10:50: [place] [id number] Medication oral med Meds Active 2018- Carol assistance 2-18 ([place]) required 10:50: [place] 00 [id number] Musculoskel transfer Musculoske Active 2018-10 Carol etal assistance letal 2-18 ([place]) required 10:50: [place] [id number] Musculoskel requires Musculoske Active 2018-10 Carol etal human letal 2-18 ([place]) assist to 10:50: [place] leave home 00 [id number] Nutrition nutritional Nutrition Active 2018-10 Avis restriction 2-18 Bacon s 13:25: [id number] Bed transfer PT/OT: Bed Active 2018-10 Avis Mobility/Tr deficit: Mobility/T 2-18 Bacon ansfer sit/stand ransfer 13:25: [id number] 00 Bed transfer PT/OT: Bed Active 2018-10 Avis Mobility/Tr deficit: Mobility/T 2-18 Bacon ansfer standing ransfer 13:25: [id number] pivot 00 Bed transfer PT/OT: Bed Active 2018-10 Avis Mobility/Tr deficit: Mobility/T 2-18 Bacon ansfer toilet/comm ransfer 13:25: [id number] ode 00 Bed knowledge/s PT/OT: Bed Active 2018-10 Avis Mobility/Tr kill Mobility/T 2-18 Bacon ansfer deficit: pt ransfer 13:25: [id number] 00 Bed bed PT/OT: Bed Active 2018-10 Avis Mobility/Tr mobility Mobility/T 2-18 Bacon ansfer deficit ransfer 13:25: [id number] 00 Balance/End balance/operations support coordinator PT/OT: Active 2018-10 Avis urance rdination Balance/En 2-18 Bacon deficit durance 13:25: [id number] 00 Balance/End endurance PT/OT: Active 2018-10 Avis urance deficit Balance/En 2-18 Bacon durance 13:25: [id number] 00 Balance/End knowledge/s PT/OT: Active 2018-10 Avis urance kill Balance/En 2-18 Bacon deficit: pt durance 13:25: [id number] 00 Gait/Locomo gait PT/OT: Active 2018-10 Avis tion deficit Gait/Locom 2-18 Bacon problems otion 13:25: [id number] 00 Gait/Locomo knowledge/s PT/OT: Active 2018-10 Avis tion kill Gait/Locom 2-18 Bacon problems deficit: pt otion 13:25: [id number] 00 Allergies, Adverse Reactions, Alerts Allergy Name [...] 5 mg tablet 5 mg tablet 2-18 eBnnie WALLACE cyanocobala cyanocobala 2018-10 Yes Bettie Unknown [...]
--- OUTSIDE RECORDS SUMMARY | 2019-11-30 23:16 | XMS REPORT ---
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-13 Bacon impairment, impairment, [id number] so stated so stated Hypotension Hypotension Diagnosis Active Avis , , 10-13 Bacon unspecified unspecified [id number] Low back Low back Diagnosis Active Avis pain pain 10-13 Bacon [id number] Benign Benign Diagnosis Active 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 hyperplasia hyperplasia [id number] with lower with lower urinary urinary tract tract symptoms symptoms Constipatio Constipatio Diagnosis Active Avis n, n, 10-13 Bacon unspecified unspecified [id number] Dizziness Dizziness Diagnosis Active Avis and and Bacon giddiness giddiness [id number] Personal Personal Diagnosis Active Avis history of history of Bacon urinary urinary [id number] (tract) (tract) infections infections History of History of Diagnosis Active Avis falling falling Bacon [id number] Pain frequent Pain Mgmt Active 2018-10 Carol pain 2-18 ([place]) 10:50: Kurtis 00 [id number] Cardio edema Cardiovasc Active 2018-10 Carol ular 2-18 ([place]) 10:50: Kurtis 00 [id number] Respiratory dyspnea Respirator Active 2018-10 Carol present y 2-18 ([place]) 10:50: Kurtis 00 [id number] Endo/Jermaine anti-coagul Endo/Jermaine Active 2018-10 Carol ation 2-18 ([place]) therapy 10:50: [place] [id number] Sensory impaired Sensory Active 2018- Carol hearing 2-18 ([place]) 10:50: [place] [id number] Integument pressure Integument Active 2019- Carol ulcer 2-18 ([place]) present 10:50: [place] [id number] Integument skin Integument Active 2018-10 Carol integrity 2-18 ([place]) risk 10:50: [place] [id number] Elimination urinary Eliminatio Active 2018-10 Carol incontinenc n 2-18 ([place]) e 10:50: [place] [id number] Neuro confusion Neuro/Emot Active 2018-10 Carol present ion 2-18 ([place]) 10:50: [place] [id number] Neuro impaired Neuro/Emot Active 2018-10 Carol decision-ma ion 2-18 ([place]) savana 10:50: [place] [id number] Neuro memory Neuro/Emot Active 2018-10 Carol deficit ion 2-18 ([place]) needing 10:50: [place] supervision 00 [id number] Activity ADL Activity Active 2018-10 Carol assistance 2-18 ([place]) required 10:50: [place] [id number] Activity self-care Activity Active 2018-10 Carol deficit 2-18 ([place]) 10:50: [place] [id number] Safety fall risk Safety Active 2018- Carol factor 2-18 ([place]) present 10:50: [place] [id number] Safety knowledge/s Safety Active 2018- QUALITY kill 2-18 REALTIME deficit: pt 10:50: 00 Safety cannot be Safety Active 2019- Carol left alone 2-18 ([place]) 10:50: [place] [id number] Safety risk for Safety Active 2019- Carol hospitaliza 2-18 ([place]) tion 10:50: [place] [id number] Medication oral med Meds Active 2018- Carol assistance 2-18 ([place]) required 10:50: [place] 00 [id number] Musculoskel transfer Musculoske Active 2018-10 Carol etal assistance letal 2-18 ([place]) required 10:50: [place] [id number] Musculoskel requires Musculoske Active 2018-10 Carol etal human letal 2-18 ([place]) assist to 10:50: [place] leave home 00 [id number] Nutrition nutritional Nutrition Active 2018-10 Avis restriction 2-18 Bacon s 13:25: [id number] 00 Bed transfer PT/OT: Bed Active 2018-10 Avis Mobility/Tr deficit: Mobility/T 2-18 Bacon ansfer sit/stand ransfer 13:25: [id number] 00 Bed transfer PT/OT: Bed Active 2018-10 Avis Mobility/Tr deficit: Mobility/T 2-18 Bacon ansfer standing ransfer 13:25: [id number] pivot 00 Bed transfer PT/OT: Bed Active 2018-10 Avis Mobility/Tr deficit: Mobility/T 2-18 Bacon ansfer toilet/comm ransfer 13:25: [id number] ode 00 Bed knowledge/s PT/OT: Bed Active 2018-10 Avis Mobility/Tr kill Mobility/T 2-18 Bacon ansfer deficit: pt ransfer 13:25: [id number] 00 Bed bed PT/OT: Bed Active 2018-10 Avis Mobility/Tr mobility Mobility/T 2-18 Bacon ansfer deficit ransfer 13:25: [id number] 00 Balance/End balance/pastry cook helper PT/OT: Active 2018-10 Avis urance rdination Balance/En 2-18 Bacon deficit durance 13:25: [id number] 00 Balance/End endurance PT/OT: Active 2018-10 Avis urance deficit Balance/En 2-18 Bacon durance 13:25: [id number] 00 Balance/End knowledge/s PT/OT: Active 2018-10 Avis urance kill Balance/En 2-18 Bacon deficit: pt durance 13:25: [id number] 00 Gait/Locomo gait PT/OT: Active 2018-10 Avis tion deficit Gait/Locom 2-18 Bacon problems otion 13:25: [id number] 00 Gait/Locomo knowledge/s PT/OT: Active 2018-10 Avis tion kill Gait/Locom 2-18 Bacon problems deficit: pt otion 13:25: [id number] 00 Allergies, Adverse Reactions, Alerts Allergy Name [...] 2-18 Bennie WALLACE cyanocobala cyanocobala 2018-10 Yes Bettei Unknown Unknown min (vit min (vit 2-18 [...]
--- OUTSIDE RECORDS SUMMARY | 2019-11-30 23:16 | XMS REPORT ---
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-13 Bacon impairment, impairment, [id number] so stated so stated Hypotension Hypotension Diagnosis Active Avis , , 10-13 Bacon unspecified unspecified [id number] Low back Low back Diagnosis Active Avis pain pain 10-13 Bacon [id number] Benign Benign Diagnosis Active 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 hyperplasia hyperplasia [id number] with lower with lower urinary urinary tract tract symptoms symptoms Constipatio Constipatio Diagnosis Active Avis n, n, 10-13 Bacon unspecified unspecified [id number] Dizziness Dizziness Diagnosis Active Avis and and Bacon giddiness giddiness [id number] Personal Personal Diagnosis Active Avis history of history of Bacon urinary urinary [id number] (tract) (tract) infections infections History of History of Diagnosis Active Avis falling falling Bacon [id number] Pain frequent Pain Mgmt Active 2018-10 Carol pain 2-18 (Chanel) 10:50: Kurtis 00 [id number] Cardio edema Cardiovasc Active 2018-10 Carol ular 2-18 (Chanel) 10:50: Kurtis 00 [id number] Respiratory dyspnea Respirator Active 2018-10 Carol present y 2-18 (Chanel) 10:50: Kurtis 00 [id number] Endo/Jermaine anti-coagul Endo/Jermaine Active 2018-10 Carol ation 2-18 (Chanel) therapy 10:50: [place] [id number] Sensory impaired Sensory Active 2018- Carol hearing 2-18 (Chanel) 10:50: [place] [id number] Integument pressure Integument Active 2019- Carol ulcer 2-18 (Chanel) present 10:50: [place] [id number] Integument skin Integument Active 2018-10 Carol integrity 2-18 (Chanel) risk 10:50: [place] [id number] Elimination urinary Eliminatio Active 2018-10 Carol incontinenc n 2-18 (Chanel) e 10:50: [place] [id number] Neuro confusion Neuro/Emot Active 2018-10 Carol present ion 2-18 (Chanel) 10:50: [place] [id number] Neuro impaired Neuro/Emot Active 2018-10 Carol decision-ma ion 2-18 (Chanel) savana 10:50: [place] [id number] Neuro memory Neuro/Emot Active 2018-10 Carol deficit ion 2-18 (Chanel) needing 10:50: [place] supervision 00 [id number] Activity ADL Activity Active 2018-10 Carol assistance 2-18 (Chanel) required 10:50: [place] [id number] Activity self-care Activity Active 2018-10 Carol deficit 2-18 (Chanel) 10:50: [place] [id number] Safety fall risk Safety Active 2018- Carol factor 2-18 (Chanel) present 10:50: [place] [id number] Safety knowledge/s Safety Active 2018- QUALITY kill 2-18 REALTIME deficit: pt 10:50: 00 Safety cannot be Safety Active 2019- Carol left alone 2-18 (Chanel) 10:50: [place] [id number] Safety risk for Safety Active 2019- Carol hospitaliza 2-18 (Chanel) tion 10:50: [place] [id number] Medication oral med Meds Active 2018- Carol assistance 2-18 (Chanel) required 10:50: [place] 00 [id number] Musculoskel transfer Musculoske Active 2018-10 Carol etal assistance letal 2-18 (Chanel) required 10:50: [place] [id number] Musculoskel requires Musculoske Active 2018-10 Carol etal human letal 2-18 (Chanel) assist to 10:50: [place] leave home 00 [id number] Nutrition nutritional Nutrition Active 2018-10 Avis restriction 2-18 Bacon s 13:25: [id number] Bed transfer PT/OT: Bed Active 2018-10 Avis Mobility/Tr deficit: Mobility/T 2-18 Bacon ansfer sit/stand ransfer 13:25: [id number] Bed transfer PT/OT: Bed Active 2018-10 Avis Mobility/Tr deficit: Mobility/T 2-18 Bacon ansfer standing ransfer 13:25: [id number] pivot 00 Bed transfer PT/OT: Bed Active 2018-10 Avis Mobility/Tr deficit: Mobility/T 2-18 Bacon ansfer toilet/comm ransfer 13:25: [id number] ode 00 Bed knowledge/s PT/OT: Bed Active 2018-10 Avis Mobility/Tr kill Mobility/T 2-18 Bacon ansfer deficit: pt ransfer 13:25: [id number] Bed bed PT/OT: Bed Active 2018-10 Avis Mobility/Tr mobility Mobility/T 2-18 Bacon ansfer deficit ransfer 13:25: [id number] Balance/End balance/marketing program coordinator PT/OT: Active 2018-10 Avis urance rdination Balance/En 2-18 Bacon deficit durance 13:25: [id number] Balance/End endurance PT/OT: Active 2018-10 Avis urance deficit Balance/En 2-18 Bacon durance 13:25: [id number] Balance/End knowledge/s PT/OT: Active 2018-10 Avis urance kill Balance/En 2-18 Bacon deficit: pt durance 13:25: [id number] Gait/Locomo gait PT/OT: Active 2018-10 Avis tion deficit Gait/Locom 2-18 Bacon problems otion 13:25: [id number] Gait/Locomo knowledge/s PT/OT: Active 2018-10 Avis tion kill Gait/Locom 2-18 Bacon problems deficit: pt otion 13:25: [id number] Allergies, Adverse Reactions, Alerts Allergy Name [...]
--- OUTSIDE RECORDS SUMMARY | 2019-11-30 23:16 | XMS REPORT ---
:1935 Author Organization [facility] Care Team Providers Name Role Phone Unavailable Unavailable Unavailable Problems Condition Condition Condition Status Onset Resolution Last Treating Comments Name Details Category Date Date Treatment Clinician Date Age-related Age-related Diagnosis Active Avis osteoporosi osteoporosi 10-13 Bacon s without s without [id number] current current pathologica pathologica l fracture l fracture Mild Mild Diagnosis Active Avis cognitive cognitive 10-13 Bacon impairment, impairment, [id number] so stated so stated Hypotension Hypotension Diagnosis Active Avis , , 10-13 Bacon unspecified unspecified [id number] Low back Low back Diagnosis Active Avis pain pain 10-13 Bacon [id number] Benign Benign Diagnosis Active 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 hyperplasia hyperplasia [id number] with lower with lower urinary urinary tract tract symptoms symptoms Constipatio Constipatio Diagnosis Active Avis n, n, 10-13 Bacon unspecified unspecified [id number] Dizziness Dizziness Diagnosis Active Avis and and Bacon giddiness giddiness [id number] Personal Personal Diagnosis Active Avis history of history of Bacon urinary urinary [id number] (tract) (tract) infections infections History of History of Diagnosis Active Avis falling falling Bacon [id number] Pain frequent Pain Mgmt Active 2018-10 Carol pain 2-18 (Chanel) 10:50: Kurtis 00 [id number] Cardio edema Cardiovasc Active 2018-10 Carol ular 2-18 (Chanel) 10:50: Kurtis 00 [id number] Respiratory dyspnea Respirator Active 2018-10 Carol present y 2-18 (Chanel) 10:50: Kurtis 00 [id number] Endo/Jermaine anti-coagul Endo/Jermaine Active 2018-10 Carol ation 2-18 (Chanel) therapy 10:50: [place] [id number] Sensory impaired Sensory Active 2018- Carol hearing 2-18 (Chanel) 10:50: [place] [id number] Integument pressure Integument Active 2019- Carol ulcer 2-18 (Chanel) present 10:50: [place] [id number] Integument skin Integument Active 2018-10 Carol integrity 2-18 (Chanel) risk 10:50: [place] [id number] Elimination urinary Eliminatio Active 2018-10 Carol incontinenc n 2-18 (Chanel) e 10:50: [place] [id number] Neuro confusion Neuro/Emot Active 2018-10 Carol present ion 2-18 (Chanel) 10:50: [place] [id number] Neuro impaired Neuro/Emot Active 2018-10 Carol decision-ma ion 2-18 (Chanel) savana 10:50: [place] [id number] Neuro memory Neuro/Emot Active 2018-10 Carol deficit ion 2-18 (Chanel) needing 10:50: [place] supervision 00 [id number] Activity ADL Activity Active 2018-10 Carol assistance 2-18 (Chanel) required 10:50: [place] [id number] Activity self-care Activity Active 2018-10 Carol deficit 2-18 (Chanel) 10:50: [place] [id number] Safety fall risk Safety Active 2018- Carol factor 2-18 (Chanel) present 10:50: [place] [id number] Safety knowledge/s Safety Active 2018- QUALITY kill 2-18 REALTIME deficit: pt 10:50: 00 Safety cannot be Safety Active 2019- Carol left alone 2-18 (Chanel) 10:50: [place] [id number] Safety risk for Safety Active 2019- Carol hospitaliza 2-18 (Chanel) tion 10:50: [place] [id number] Medication oral med Meds Active 2018- Carol assistance 2-18 (Chanel) required 10:50: [place] 00 [id number] Musculoskel transfer Musculoske Active 2018-10 Carol etal assistance letal 2-18 (Chanel) required 10:50: [place] [id number] Musculoskel requires Musculoske Active 2018-10 Carol etal human letal 2-18 (Chanel) assist to 10:50: [place] leave home 00 [id number] Nutrition nutritional Nutrition Active 2018-10 Avis restriction 2-18 Bacon s 13:25: [id number] Bed transfer PT/OT: Bed Active 2018-10 Avis Mobility/Tr deficit: Mobility/T 2-18 Bacon ansfer sit/stand ransfer 13:25: [id number] Bed transfer PT/OT: Bed Active 2018-10 Avis Mobility/Tr deficit: Mobility/T 2-18 Bacon ansfer standing ransfer 13:25: [id number] pivot 00 Bed transfer PT/OT: Bed Active 2018-10 Avis Mobility/Tr deficit: Mobility/T 2-18 Bacon ansfer toilet/comm ransfer 13:25: [id number] ode 00 Bed knowledge/s PT/OT: Bed Active 2018-10 Avis Mobility/Tr kill Mobility/T 2-18 Bacon ansfer deficit: pt ransfer 13:25: [id number] Bed bed PT/OT: Bed Active 2018-10 Avis Mobility/Tr mobility Mobility/T 2-18 Bacon ansfer deficit ransfer 13:25: [id number] Balance/End balance/display coordinator PT/OT: Active 2018-10 Avis urance rdination Balance/En 2-18 Bacon deficit durance 13:25: [id number] Balance/End endurance PT/OT: Active 2018-10 Avis urance deficit Balance/En 2-18 Bacon durance 13:25: [id number] Balance/End knowledge/s PT/OT: Active 2018-10 Avis urance kill Balance/En 2-18 Bacon deficit: pt durance 13:25: [id number] Gait/Locomo gait PT/OT: Active 2018-10 Avis tion deficit Gait/Locom 2-18 Bacon problems otion 13:25: [id number] Gait/Locomo knowledge/s PT/OT: Active 2018-10 Avis tion kill Gait/Locom 2-18 Bacon problems deficit: pt otion 13:25: [id number] Allergies, Adverse Reactions, Alerts Allergy Name [...]
--- NOTE | 2019-11-30 23:33 | ED ---
Dizziness - HPI Summary HPI Summary: The patient is an 78-year-old male arriving via ambulance from [facility] to [facility] accompanied by son with a chief complaint of dizziness tonight with one syncopal episode earlier. He reports he began feeling lightheaded and dizzy following dinner tonight. After the episode, staff at [facility] found the patient to be hypoxic. He is awake and alert in the ED, but he still is experiencing lightheadedness. He denies any chest pain. Symptoms are rated 5/10 in severity. No cardiac history. Past medical history significant for hypothyroidism, DVT, syncopal episodes, seasonal allergies, BPH, prostatitis, SBO, cirrhosis, diverticulosis, GERD, sepsis, arthritis, osteoporosis. Nonsmoker , no EtOH, no substance use. Medications reviewed. Allergies noted. Patient is DNR status, as confirmed by son and patient. Patient would like CPR if necessary. - History Of Current Complaint Chief Complaint: EDDizziness Stated Complaint: LIGHT HEADED PER EMS Hx Obtained From: Patient Onset/Duration: Still Present Severity Initially: Moderate Severity Currently: Moderate Character: Lightheaded, Dizzy Aggravating Factor(s): Nothing Alleviating Factor(s): Nothing Associated Signs And Symptoms: Negative: Chest Pain - Allergies/Home Medications Allergies/Adverse Reactions: Allergies Allergy/AdvReac Type Severity Reaction Status Date / Time Penicillins Allergy Rash Verified 11/30/19 22:44 PMH/Surg Hx/FS Hx/Imm Hx Endocrine/Hematology History: Reports: Hx Anticoagulant Therapy Cardiovascular History: Reports: Hx Deep Vein Thrombosis - left leg, Hx Syncope - occasional Denies: Hx Hypertension Respiratory History: Reports: Hx Pneumonia, Hx Seasonal Allergies GI History: Reports: Hx Cirrhosis, Hx Diverticulosis, Hx Gastroesophageal Reflux Disease, Other GI Disorders - inguinal and umbilical hernia History: Reports: Hx Benign Prostatic Hyperplasia, Other Problems/ Disorders - prostatitis Musculoskeletal History: Reports: Hx Arthritis, Hx Back Problems - Back pain due to fracture, Hx Orthopedic Injury - Fractured multiple vertebral spines, Hx Osteoporosis Denies: Hx Bursitis, Hx Congenital Bone Abnormalities, Hx Scoliosis Sensory History: Reports: Hx Cataracts, Hx Contacts or Glasses Denies: Hx Deafness, Hx Hearing Aid Opthamlomology History: Reports: Hx Cataracts, Hx Contacts or Glasses Neurological History: Denies: Hx Headaches, Other Neuro Impairments/Disorders Psychiatric History: Reports: Hx Depression - Surgical History Surgical History: Yes Surgery Procedure, Year, and Place: Hernia [id number] Hx Anesthesia Reactions: No - Immunization History Immunizations Up to Date: Yes Infectious Disease History: Denies: Traveled Outside the [place] in Last 30 Days - Family History Known Family History: Positive: Cardiac Disease - father, Other - pancreatic CA Negative: Hypertension, Diabetes - Social History Alcohol Use: None Hx Substance Use: No Substance Use Type: Reports: None Hx Tobacco Use: No Smoking Status (MU): Never Smoked Tobacco - Additional Comments History Additional Comments: hypothyroidism, DVT, syncopal episodes, BPH, prostatitis, SBO, cirrhosis, diverticulosis, GERD, sepsis, arthritis, osteoporosis, no cardiac history Review of Systems - ROS Summary Review of Systems Summary: Home Medications Medication Instructions Recorded Confirmed Type Acetaminophen [Tylenol Extra 1,000 mg PO Q6HR PRN 06/29/18 04/17/19 History Strength] Ascorbic Acid TAB* [Vitamin C 1,000 mg PO DAILY 06/29/18 06/03/19 History TAB*] Cholecalciferol (Vitamin D3) 1,000 unit PO DAILY 06/29/18 06/03/19 History [Vitamin D3] Ranitidine TAB (NF) [Zantac TAB 150 mg PO BID 06/29/18 06/03/19 History (NF)] Vit A/Vit C/Vit E/Zinc/Copper 1 cap PO BID 06/29/18 06/03/19 History [Preservision Areds Softgel] Finasteride TAB* [Proscar TAB*] 5 mg PO DAILY tab 07/06/18 04/17/19 Rx Midodrine 5 mg PO BID tab 07/06/18 06/03/19 Rx Cyanocobalamin TAB* [Vitamin B12 100 mcg PO DAILY 06/03/19 06/03/19 History TAB*] Levothyroxine TAB* [Synthroid TAB*] 25 mcg PO DAILY 06/03/19 06/03/19 History [place]-3 Fatty Acids/Fish Oil [Fish 1 each PO 06/03/19 History Oil 1,000 mg Softgel] traMADol TAB* [Ultram*] 50 mg PO Q6HR PRN 06/03/19 11/30/19 History Negative: Chest Pain Neurological/Mental Status: Other - dizziness Positive: Syncope - one episode today All Other Systems Reviewed And Are Negative: Yes Physical Exam - Summary Physical Exam Summary: General: Well-developed, Well-nourished elderly male. Mildly ill-appearing. No acute distress. HEENT: Normocephalic, Atraumatic. Eyes: Conjuctiva normal, PERRL. Oropharynx: Clear, mucous membranes moist, (-) exudates. Neck: Soft, FROM, (-) lymphadenopathy, (-) thyromegaly, (-) JVD. Cardiovascular: Bradycardic, (-) murmur. Lungs: Clear to auscultation bilaterally (-) wheezes, (-) rales, (-) rhonchi. Abdomen: Soft, non-tender, non-distended, (-) organomegaly, normal bowel sounds. Back: (-) CVA tenderness Extremities: No edema. Skin: Warm, dry, (-) rash. Neuro: Alert and oriented x3, slow to response, moves all extremities equally. No ataxia. No gait disturbance. No sensory deficit. Normal strength, normal sensation. Psychiatric: Mood normal, affect normal. Triage Information Reviewed: Yes Vital Signs On Initial Exam: Initial Vitals Temp Pulse Resp BP Pulse Ox 98.1 F 77 20 136/73 94 11/30/19 22:37 11/30/19 22:37 11/30/19 22:37 11/30/19 22:37 11/30/19 22:37 Vital Signs Reviewed: Yes Procedures - Sedation Patient Received Moderate/Deep Sedation with Procedure: No Diagnostics - Vital Signs Vital Signs Temp Pulse Resp BP Pulse Ox 11/30/19 22:40 85 18 92 11/30/19 22:39 84 13 136/73 93 11/30/19 22:37 98.1 F 77 20 136/73 94 - Laboratory Result Diagrams: 12/01/19 00:05 12/01/19 04:53 Lab Statement: Any lab studies that have been ordered have been reviewed, and results considered in the medical decision making process. - Radiology CXR Radiology Interpretation Completed By: ED Physician Summary of Radiographic Findings: No infiltrate. No pleural effusion. This imaging study was reviewed and interpreted by Dr. Avelar. Pending official read. - EKG 2238 Cardiac Rate: NL - 79 BPM EKG Rhythm: Sinus Rhythm Summary of EKG Findings: EKG at 2239 reveals normal sinus rhythm with rate of 79 BPM, no acute changes, no STEMI. This EKG was reviewed and interpreted by Dr. Avelar. 2311 Cardiac Rate: Bradycardia - 46 BPM EKG Rhythm: Sinus Bradycardia Summary of EKG Findings: EKG at 2311 reveals sinus bradycardia with rate of 46 BPM, New T wave depressions in II, aVF, V4, V5, V6. No STEMI. This EKG was reviewed and interpreted by Dr. Avelar. 2333 Cardiac Rate: Other Rate - 57 BPM Summary of EKG Findings: EKG at 2333 reveals paced rhythm with rate of 57 BPM. This EKG was reviewed and interpreted by Dr. Avelar. 2336 Cardiac Rate: Other Rate - 40 BPM Summary of EKG Findings: EKG at 2336 reveals paced rhythm with rate of 40 BPM. This EKG was reviewed and interpreted by Dr. Avelar. Re-Evaluation - Re-Evaluation First Eval Re-Evaluation Time: 23:05 Comment: Patient's HR in 30s BPM. Pacer pads to be placed. Second Eval Re-Evaluation Time: 23:30 Comment: Discussed plan for admission with patient and son, they are agreeable with plan. Third Eval Re-Evaluation Time: 23:40 Comment: Pacer pads removed, HR in 40s, patient feels HR decrease. Pacer pads replaced, patient not in pain but discomfort improves. Dizzy Course/Dx - Course Course Of Treatment: 84-year-old male from longterm after episode of dizziness and syncope. While in the emergency room his heart rate went into the 30s. External pacer pads were placed in pacing was started at 60 bpm. Patient tolerated very well. Denied any pain with external pacing. Discussed with cardiology on-call. external pulse rate was decreased and patient became symptomatic. Pacing was restarted. Patient was referred to hospitalist for admission. cardiology came to see the patient. External pacing was discontinued. After a short period of time patient went into asystole. This was improved when patient was started on external pacing again.care of the patient was turned over to the hospitalist at this time who admitted the patient to ICU. tropine given. Dopamine was startedfor a very brief period of time. Patient transferred to the ICU without dopamine. - Diagnoses Provider Diagnoses: Bradycardia, Syncope - Provider Notifications Discussed Care Of Patient With: Woody Nunez - cardiology Time Discussed With Above Provider: 23:25 Instructed by Provider To: Other - I discussed the patient's case with Dr. Nunez, who will come see the patient in the ED. He requests a repeat EKG following pacer pad placement. Dr. Nunez recommends admission. I spoke with Dr. Ruiz from the hospitalist services, who accepts the patient for admission [ [id number]]. - Critical Care Time Critical Care Time: 75-104 min - 94 minutes Discharge ED - Sign-Out/Discharge Documenting (check all that apply): Patient Departure - Patient accepted for admission by Dr. Ruiz. - Discharge Plan Condition: Stable Disposition: ADMITTED TO [facility] - Billing Disposition and Condition Condition: STABLE Disposition: Admitted to [facility] - Attestation Statements Document Initiated by Oneal: Yes Documenting Scribe: Zully Quintero Provider For Whom Oneal is Documenting (Include Credential): Dr. Deloris Avelar MD Scribe Attestation: Zully Amaral, scribed for Dr. Deloris Avelar MD on 12/01/19 at 0628. Scribe Documentation Reviewed: Yes Provider Attestation: The documentation as recorded by the Zully felix accurately reflects the service I personally performed and the decisions made by me, Dr. Deloris Avelar MD Status of Scribe Document: Viewed
[2019-12-01 00:13] LABS: ABS Basophils 0.1 10^3/ul (0-0.2); ABS Eosinophils 0.3 10^3/ul (0-0.6); ABS Lymphocytes 1.3 10^3/ul (1.0-4.8); ABS Monocytes 0.8 10^3/ul (0-0.8); ABS Neutrophils 5.7 10^3/ul (1.5-7.7); Hematocrit 34 % (42-52); Hemoglobin 11.2 g/dL (14.0-18.0); Lymphocyte % 16.1 %; Mean Corpuscular HGB Conc 33 g/dL (31-36); Mean Corpuscular Hemoglobin 32 pg (27-31); Mean Corpuscular Volume 95 fL (80-94); Mean Platelet Volume 8.4 fL (7.4-10.4); Nucleated Red Blood Cells % 0.1; Platelet Count 206 10^3/uL (150-450); Red Blood Count 3.54 10^6 /uL (4.18-5.48); Red Cell Distribution Width 16 % (10-15); White Blood Count 8.4 10^3/uL (3.5-10.8)
[2019-12-01 00:26] LABS: INR 1.06 (0.82-1.09)
[2019-12-01 00:30] LABS: Albumin 3.3 g/dL (3.2-5.2); Albumin/Globulin Ratio 1.2 (1-3); BUN/Creatinine Ratio 19.3 (8-20); Calcium 8.3 mg/dL (8.6-10.3); EGFR African American 99.4 (>60); EGFR Non-African American 82.1 (>60); Globulin 2.8 g/dL (2-4); Magnesium 2.1 mg/dL (1.9-2.7); Potassium 3.9 mmol/L (3.5-5.0); Total Bilirubin 0.4 mg/dL (0.2-1.0); Total Protein 6.1 g/dL (6.4-8.9)
[2019-12-01 00:32] LABS: Troponin I 0.01 ng/mL (<0.03)
[2019-12-01] MEDS ORDERED: Atropine SYRINGE* 0.1 MG/ML 10 ML SYRINGE (1 MG) ONE (00:40)
[2019-12-01 00:44] LABS: TSH (Thyroid Stimulating Horm) 5.88 mcIU/mL (0.34-5.60)
[2019-12-01] MEDS ORDERED: Atropine SYRINGE* 0.1 MG/ML 10 ML SYRINGE (1 MG) IV PUSH ONE (00:45)
[2019-12-01] MEDS ORDERED: DOPamine 800 MG/250 ML IVPREM* 800 MG/250 ML ML CENTR SCH ×2 (01:00→05:31)
[2019-12-01] MEDS ORDERED: Potassium Chloride* LIQUID 20 MEQ/15 ML UDC PO ONE (01:17)
--- NOTE | 2019-12-01 03:23 | HP ---
HISTORY AND PHYSICAL: DATE OF ADMISSION: 12/01/19 ADMITTING PROVIDER: Son Ruiz MD. CONSULTING PUBLIC SPEAKING TEACHER: Dr. Nunez. PRIMARY CARE PHYSICIAN: Dr. Alexandre. CHIEF COMPLAINT: Episode of unresponsiveness/syncope; dizziness; chest pain; nausea. HISTORY OF PRESENT ILLNESS: Qasim Milian is an 84-year-old male with past medical history of BPH; provoked DVT in 1975 (no longer on Coumadin); GERD; constipation; hypothyroidism; SBO, status post surgery; memory loss, who is a resident of [facility]. He was being prepared for bed when there was a report that his eyes rolled back in his head, he got pale and unresponsive. He reports that he felt dizzy between 30 and 45 minutes. He is a very poor historian. In the [facility], his heart rates were initially in the 70s to 80s with evidence of a right bundle-branch block. There was an episode of what was reported to be a third-degree heart block, and he was set up to externally pacers. Cardiology, Dr. Nunez, was consulted. He felt like the pacer was not capturing effectively and he stopped that. The patient then had an episode of asystole which he eventually self- resolved before CPR was started, he is a full code. Dr. Nunez is recommending initiation of dopamine infusion. The patient also did get a dose of atropine 0.5 mg once. He does state that he felt uneasy in his chest and had a tendency to vomit. He did have some chest pain, but it is difficult to clarify the specifics, last bout 6 months ago. He denies fevers, chills. He is mostly wheelchair bound. PAST MEDICAL HISTORY: 1. BPH. 2. Unprovoked DVT in 1975, no longer on Coumadin. 3. Constipation. 4. Hypothyroidism. 5. History of SBO. 6. Hemorrhoids. MEDICATIONS: Include, 1. [place]-3 fatty acids. 2. Midodrine 5 mg p.o. b.i.d.. 3. Levothyroxine 25 mcg p.o. daily. 4. Finasteride 5 mg p.o. daily. 5. Cyanocobalamin 100 mcg p.o. daily. 6. Cholecalciferol 1000 units p.o. daily. 7. Ascorbic acid 1000 mg p.o. daily. 8. Acetaminophen 1000 mg p.o. q.6 hours p.r.n. 9. PreserVision AREDS 1 capsule p.o. b.i.d.. 10. Ranitidine 150 mg p.o. b.i.d.. 11. Tramadol 50 mg p.o. q.6 hours p.r.n.. ALLERGIES: PENICILLIN, rash. FAMILY MEDICAL HISTORY: His father at age 71 of pancreatic cancer, mother of breast cancer. SOCIAL HISTORY: No history of alcohol or smoking. He desires to be a full code. He lives at an enhanced assisted living facility at [place]. Medical surrogate is his son, Ramon. REVIEW OF SYSTEMS: Complete 14-point review of systems negative except as per HPI. PHYSICAL EXAMINATION GENERAL APPEARANCE: No acute distress currently, but debilitated appearing. VITAL SIGNS: Temperature initially 98.1, blood pressure 136/73, pulse rate 77, respiratory rate 20, satting 94% on room air. HEENT: Normocephalic, atraumatic. Pupils equal, round, and reactive to light. Extraocular movements intact. No scleral icterus. LUNGS: With rales at bilateral bases. No wheezing or rhonchi. CARDIOVASCULAR: Occasionally bradycardic. No murmurs, rubs, or gallops. ABDOMEN: Soft, nontender, nondistended. EXTREMITIES: Warm and well perfused. 2+ pitting edema of right lower extremity , 1+ in the left lower extremity. NEUROLOGIC: He is not oriented currently other than he does know he is in [facility], thinks it is 2016 and November 16. SKIN: No lesions or rashes. LABORATORY DATA: White count 8.4, hemoglobin 11.2, hematocrit 34, platelets 206, INR 1.06. Sodium 139, potassium 3.9, chloride 104, BUN 17, creatinine 0.88 , glucose 110, lactic acid 1.2, magnesium 2.1, calcium 8.3, total bili 0.4, AST 11, ALT 9, alk phos 71, troponin 0.01. BNP 70, total protein 6.1, albumin 3.3, TSH 5.88. IMAGING: Chest x-ray, formal read pending. He has elevated right hemidiaphragm , otherwise no evidence of infiltrates. EKG: - EKG 2238 showed right bundle- branch block with left anterior fascicular block. - EKG 2311 showed right bundle-branch block with widened QRS complexes and bradycardia with heart rate 46. There were T-wave inversions in 2, 3, aVF, and V4 through V6. ASSESSMENT AND PLAN: Qasim Milian is an 84-year-old male with past medical history of hypotension, on midodrine, and right bundle-branch block with left anterior fascicular block known from previous studies, presenting with syncope and reported episode of third-degree heart block but at least with symptomatic bradycardia now requiring dopamine infusion (in the ICU) after also requiring external pacemaker. I appreciate cardiology recommendations. We will ask Dr. Webb to help place central line [Addendum - HR had stablized and she preferred to not place central line at this time] so he can continue dopamine infusions. He would potentially consent for pacemaker. We will trend his troponins. Right leg is more edematous than the left, and we will get D-dimer and duplex ultrasound. Maintain electrolytes, potassium above 4, magnesium above 2. I will get a transthoracic echocardiogram. He is a full code. Medical surrogate is his son Ramon. He is n.p.o. for now. [id number]/[facility] #: [id number] AIDAN
--- NOTE | 2019-12-01 04:37 | CONS ---
CARDIOLOGY CONSULTATION REPORT: DATE OF CONSULT: 12/01/19 CONSULTING PHYSICIAN: Dr. Avelar. REASON FOR EVALUATION: Syncopal episode, bradycardia. HISTORY OF PRESENT ILLNESS: This is a very pleasant 84-year-old gentleman who is accompanied by his son, Ramon. History was obtained from the medical records, EMR from 2015, as well as the patient's son and the patient, and Dr. Avelar. Apparently, he was in his usual state of health until this evening , he was trying to be transferred from his wheelchair to the bed, he was noted to be pale, became unresponsive. EMS was called and he was found to initially have a heart rate of 30, which jumped up to 90s. He was brought into the emergency room. There was some report of significant bradycardia and complete heart block, although those strips are not available at present. He was put on external pacers and was feeling fairly well, and Dr. Avelar had called me to evaluate. The patient did have a 12- lead EKG at 2239, which revealed sinus rhythm with a left anterior hemiblock, right bundle-branch block similar to a previous EKG from his stress test in December 2015. He subsequently had an EKG at 2311, which revealed sinus bradycardia at 46 beats per minute with normal axis, right bundle-branch block, and T-wave inversions in 2, 3, F and V4, V5, V6 and markedly prolonged QT. He subsequently had an EKG with the pacing leads on, which did not clearly indicate capture, but it looked like he had an underlying sinus bradycardia. His pacing was turned down, and he now is in sinus rhythm in the 80s. He denies any lightheadedness, chest pain, or shortness of breath. No orthopnea, no PND. He had previous episodes of lightheadedness about 3 to 4 years ago and was started on midodrine with resolution of his symptoms. He denies any recent lightheadedness or syncope. He denies previous cardiac history. He was here in 2015 with a UTI and apparently had an echocardiogram and a stress test as part of his evaluation. His nuclear stress test from 12/26 revealed normal LV function, no evidence for ischemia or infarct. He also had an echocardiogram performed on 11/25/14 for CHF and elevated BNP, which revealed an EF of 55% to 60%, [id number] left atrial enlargement, trace AI , trace MR, [id number] pulmonary hypertension with [id number] TR, and PA pressure estimated at 40 mmHg. PAST MEDICAL HISTORY: Includes: 1. Hypotension, treated with midodrine. 2. Hypothyroidism, on replacement. 3. Mild memory impairment. He is in the enhanced assisted care section of [place]. 4. He has leg weakness and has had falls in the past and is limited to transferring him from his wheelchair to bed with assistance. Once he is in his wheelchair, he is able to move himself to the common eating area. 5. He has a history of back injuries in the past. 6. He has a history of chronic constipation. 7. He has a history of DVT several years ago. He was on anticoagulation , which was stopped several years ago because of the risk of bleeding and fall. He denies any strokes, mini strokes, fevers, chills, sweats, cough, orthopnea, PND. PAST SURGICAL HISTORY: Includes small bowel obstruction, resected 4 years ago. MEDICATIONS: Include: 1. Ranitidine 20 mg 1 tablet twice a day. 2. Finasteride 1 tablet 5 mg a day. 3. Fish oil 100 mg daily. 4. Levothyroxine 25 mcg a day. 5. Midodrine 25 mg 1 tablet by mouth 2 times daily for hypotension. 6. PreserVision AREDS 2 softgels twice a day. 7. Vitamin B12 100 mcg 1 every day. 8. Vitamin C 1000 mg a day. 9. Vitamin D 3000 units softgel a day. 10. Senna 8.6 mg 2 tablets by mouth twice a day. 11. Acetaminophen 500 mg 2 tablets q.6 p.r.n. 12. Tramadol 50 mg q.6 p.r.n. ALLERGIES: Include PENICILLIN. FAMILY HISTORY: His father at 71 of pancreatic cancer. SOCIAL HISTORY: He denies tobacco use. He has rare hot chocolate. He denies alcohol use. He is , has 4 children, no siblings. REVIEW OF SYSTEMS: Review of systems x10 was negative except as above. PHYSICAL EXAM: On physical exam, he is a well-developed, well-nourished gentleman, lying in bed, no complaints. Pulse is 85 with blood pressure 126/ 76. No significant JVD. Carotids 2+ without bruits. No cervical adenopathy, no thyromegaly. Extraocular muscles intact. Sclerae anicteric. Cardiac exam: S1, S2 without murmurs, gallops, or rubs. Chest: Clear anteriorly, did not sit him up. Abdomen: Bowel sounds present, nontender. No hepatosplenomegaly. Femoral pulses intact without bruits. Distal pulses intact with 3+ edema of the right lower extremity, 1 to 2+ edema of the left lower extremity. He has some pain in his calf on the left. He denied pain on the right. Motor strength 5/5 bilaterally. Deep tendon reflexes 2/4. He knew it was November but thought it was the and the year 2016. He knew where he was. O2 sats 98 % on room air. DIAGNOSTIC STUDIES/LAB DATA: Labs include anemia with a hematocrit of 34, MCV elevated at 95, platelets 206, white count of 8.4. Sodium 139, potassium of 3.9 , BUN of 17, creatinine of 0.88. Calcium low at 8.3, mag at 2.1. Troponin at 0.01. TSH is pending. Albumin was 3.3. EKGs were described. ASSESSMENT AND PLAN: The patient has advanced AV block, marked sinus bradycardia, and transient ischemic EKG changes, unclear etiology. He appears to have symptomatic bradycardia and has indications for a pacemaker, which I discussed with the patient and his son. They were agreeable to proceed. Given his advanced age and limited ability to ambulate, I suggested that we observe him in the ICU on external monitor and attempt to use dopamine to try to maintain his heart rate and conduction. If he has recurrent episodes of asystole, he may require a temporary transvenous pacemaker, I would keep him at bedrest. I would rule out for myocardial infarction with serial troponins and EKGs. Would check his TSH. Would evaluate for DVT and check a D-dimer. Would obtain an echocardiogram. Further recommendation will depend on his clinical course. [id number]/[facility] #: [id number] addendum: 12/04/2019 Patient subequently has a syncopal episode in the ER with several seconds of 3 avb. LEO BERMUDEZ
[2019-12-01] MEDS: Levothyroxine TAB* 25 MCG TAB PO SCH (05:26)
[2019-12-01 05:36] LABS: BUN/Creatinine Ratio 18.4 (8-20); Calcium 8.2 mg/dL (8.6-10.3); EGFR African American 117.7 (>60); EGFR Non-African American 97.2 (>60); Potassium 4.2 mmol/L (3.5-5.0)
[2019-12-01 05:39] LABS: Troponin I 0.01 ng/mL (<0.03)
[2019-12-01] MEDS ORDERED: Perflutren Lipid Microsphere* 3 ML VIAL ONE (08:09)
--- NOTE | 2019-12-01 09:11 | PN ---
Subjective Date of Service: 12/01/19 - CC: light headed Interval History: Pt on dopamine gtt, sbp 90, hr 70's Pt denies feeling lightheaded now, only a fair historian. Medications Active Medications: IN PT MEDS Dopamine HCl/Dextrose (Dopamine 800 Mg/250 Ml Ivprem*) 800 mg in 250 mls @ 4.082 mls/hr CENTR .PER PROTOCOL [facility]; Protocol Last Admin: 12/01/19 06:46 Dose: 3.5 mls/hr Levothyroxine Sodium (Synthroid Tab*) 25 mcg PO 0600 [facility] Last Admin: 12/01/19 05:26 Dose: 25 mcg HOME MEDS: Acetaminophen [Tylenol Extra Strength] 1,000 mg PO Q6HR PRN 06/29/18 [History Confirmed 12/01/19] Ascorbic Acid TAB* [Vitamin C TAB*] 1,000 mg PO DAILY 06/29/18 [History Confirmed 12/01/19] Cholecalciferol (Vitamin D3) [Vitamin D3] 1,000 unit PO DAILY 06/29/18 [History Confirmed 12/01/19] Ranitidine TAB (NF) [Zantac TAB (NF)] 150 mg PO BID 06/29/18 [History Confirmed 12/01/19] Vit A/Vit C/Vit E/Zinc/Copper [Preservision Areds Softgel] 1 cap PO BID [History Confirmed 12/01/19] Finasteride TAB* [Proscar TAB*] 5 mg PO DAILY tab 07/06/18 [Rx Confirmed ] Midodrine 5 mg PO BID tab 07/06/18 [Rx Confirmed 12/01/19] Cyanocobalamin TAB* [Vitamin B12 TAB*] 100 mcg PO DAILY 06/03/19 [History Confirmed 12/01/19] Levothyroxine TAB* [Synthroid TAB*] 25 mcg PO DAILY 06/03/19 [History Confirmed 12/01/19] [place]-3 Fatty Acids/Fish Oil [Fish Oil 1,000 mg Softgel] 1 each PO DAILY [History Confirmed 12/01/19] traMADol TAB* [Ultram*] 50 mg PO Q6HR PRN 06/03/19 [History Confirmed 11/30/19] Objective Vital Signs: Temp Pulse Resp BP Pulse Ox 98.9 F 68 19 93/44 99 12/01/19 08:00 12/01/19 08:45 12/01/19 08:45 12/01/19 08:45 12/01/19 08:45 Oxygen Devices in Use Now: Nasal Cannula Appearance: PALE, elderly, NAD. Eyes: No Scleral Icterus, PERRLA Ears/Nose/Mouth/Throat: NL Teeth, Lips, Gums - somewhat dry mucous membranes Neck: NL Appearance and Movements; NL JVP Respiratory: Clear to Auscultation Cardiovascular: NL Sounds; No Murmurs; No JVD, RRR Abdominal: NL Sounds; No Tenderness; No Distention - centripitally obsese Extremities: - - RLE 3+ edema, LLE mild edema Skin: No Rash or Ulcers - a bit pale. Neurological: - - vague historian, follows commands slowly Lines/Tubes/Other Access: Clean, Dry and Intact Peripheral IV Laboratory Results: 12/01/19 00:05 12/01/19 04:53 INR (Anticoag Therapy) 1.06 (0.82-1.09) 12/01/19 00:05 Total Bilirubin 0.40 mg/dL (0.2-1.0) 12/01/19 00:05 AST 11 U/L (13-39) L 12/01/19 00:05 ALT 9 U/L (7-52) 12/01/19 00:05 Alkaline Phosphatase 71 U/L (34-104) 12/01/19 00:05 B-Natriuretic Peptide 70 pg/mL (<=100) 12/01/19 00:05 Total Protein 6.1 g/dL (6.4-8.9) L 12/01/19 00:05 Albumin 3.3 g/dL (3.2-5.2) 12/01/19 00:05 Globulin 2.8 g/dL (2-4) 12/01/19 00:05 Albumin/Globulin Ratio 1.2 (1-3) 12/01/19 00:05 TSH 5.88 mcIU/mL (0.34-5.60) H 12/01/19 00:05 12/01/19 12/01/19 12/01/19 00:05 03:24 04:53 Troponin I 0.01 0.01 0.01 Diagnostic Imaging: CXR 11/30/2019: NAD EKG Data: No paper ECG's or rhythm strips in chart. One ECG in e chart, NSR, RBBB, LAFB, 79 bpm. 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 Assessment/Plan 84 yo male admitted with lightheadedness, reported 3 degree HB (strips not seen by Dr Nunez and I can't find either, yet). SBrady documented by Dr Nunez. Longstanding hx hypotension on midodrine with normal EF on past echo. Low BP persists despite normal HR. Hx UTI's, BPH and sepsis. Plan: Scheduled for pacer today based on above ECG's I need to see ECG's, strips Pacer implant may not improve symptoms if due to increased vagal tone. -R/o UTI, sepsis, treat any consitpation -Ensure no acute PE and new DVT If infected I would delay pacer implant. Addendum: Confirmed CHB, UA unremarkable, underwent dual chamber pacer implant.
--- NOTE | 2019-12-01 09:42 | ECHO ---
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 Syncope. History: Deep vein thrombosis. Hypotension. Pulmonary hypertension. Conclusions Summary: - Procedure narrative: Transthoracic echocardiography was performed. Image quality was fair. The study was technically limited due to poor acoustic window availability. Intravenous Definity , 4 mlswas administered. - Left ventricle: The cavity size is normal. Wall thickness is mildly increased. Systolic function is normal. The estimated ejection fraction is 55-60%. Possible hypokinesis of the apical myocardium, seen on apical views, subtle. Doppler parameters are consistent with abnormal left ventricular relaxation (grade 1 diastolic dysfunction). - Right ventricle: Systolic function is low normal. - Mitral valve: There is trace regurgitation. - Aortic valve: The findings are consistent with mild stenosis. There is trace regurgitation. The mean systolic gradient is 6.0 mm Hg. The valve area by the velocity-time integral method is 1.87 cm^2. The ratio of LVOT to aortic valve peak velocity is 0.51. - Tricuspid valve: There is trace regurgitation. - Pulmonary arteries: Systolic pressure is within the normal range. Pulmonary artery pressure may be underestimated - Compared with prior echocardiogram of 11/28/14, ejection fraction stable, new, prior pulmonary artery pressure 40 mmHg. Study data: Transthoracic echocardiogram. Procedure: Transthoracic echocardiography was performed. Image quality was fair. The study was technically limited due to poor acoustic window availability. Intravenous Definity , 4 mlswas administered. Complete 2D, spectral Doppler, and color flow Doppler. Location: ICU Patient status: Inpatient. Patient room number: ICU-02. Rhythm: Normal sinus rhythm. Findings Left ventricle: The cavity size is normal. Wall thickness is mildly increased. Systolic function is normal. The estimated ejection fraction is 55-60%. Regional wall motion abnormalities: Possible hypokinesis of the apical myocardium, seen on apical views, subtle. Doppler parameters are consistent with abnormal left ventricular relaxation (grade 1 diastolic dysfunction). Right ventricle: The cavity size is moderately dilated. Systolic function is low normal. Systolic pressure is within the normal range. Left atrium: The atrium is normal in size. Right atrium: The atrium is at the upper limits of normal in size. Mitral valve: The leaflets are mildly thickened. There is no evidence of stenosis. There is trace regurgitation. Aortic valve: The valve is trileaflet. The leaflets are mildly thickened. Left coronary cusp mobility is restricted. The findings are consistent with mild stenosis. There is trace regurgitation. Tricuspid valve: The leaflets are normal thickness. There is no evidence of stenosis. There is trace regurgitation. Pulmonic valve: The leaflets are normal thickness. There is no evidence of stenosis. There is trace regurgitation. Aorta: Aortic root: The aortic root is appears normal. Ascending aorta: The ascending aorta is appears normal. Aortic arch: The aortic arch is appears normal. Pericardium: A prominent pericardial fat pad is present. There is no significant pericardial effusion. Pulmonary arteries: The main pulmonary artery is normal-sized. Systolic pressure is within the normal range. Pulmonary artery pressure may be underestimated Systemic veins: Inferior vena cava: Not well visualized. Measurements Left ventricle Value Ref Aortic valve Value Ref TERESA, LAX 5.2 cm 4.2 - 5.8 Atul diam, ED 2.3 cm ----- ESD, LAX 3.8 cm 2.5 - 4.0 Atul diam/bsa, ED 1.0 cm/m^2 ----- FS, LAX 27 % 25 - 43 Peak v, S 2 m/sec ----- PW, ED, LAX (H) 1.1 cm 0.6 - 1.0 VTI, S 35.2 cm ----- FS 27 % 25 - 43 Mean grad, S 6.0 mm Hg ----- PW, ED (H) 1.1 cm 0.6 - 1.0 Peak grad, S 16.0 mm Hg ----- E', lat atul, TDI (L) 9.2 cm/sec >=10.0 LVOT/AV, VTI ratio 0.54 -- --- E/e', lat atul, 5 CLEMENTINE, VTI 1.87 cm^2 ----- TDI CLEMENTINE, Vmax 1.75 cm^2 ----- E', med atul, TDI 7.7 cm/sec >=7.0 E/e', med atul, 6 Mitral valve Value Ref TDI Peak E 0.49 m/sec ----- E', avg, TDI 8.5 cm/sec Peak A 0.73 m/sec ----- E/e', avg, TDI 6 <=14 Decel time 338 ms -- --- Peak E/A ratio 0.7 ----- LVOT Value Ref Diam, S 2.10 cm Pulmonic valve Value Ref Area 3.5 cm^2 Peak v, S 1.86 m/sec ----- Peak burt, S 1.01 m/sec Peak grad, S 14.0 mm Hg ----- VTI, S 19.0 cm Mean grad, S 2 mm Hg Tricuspid valve Value Ref SV 64 ml TR peak v 2.2 m/sec <=2.8 SV/bsa 27 ml/m^2 Peak RV-RA grad, S 19 mm Hg ----- Max TR burt 2.19 m/sec ----- Ventricular septum Value Ref IVS, ED (H) 1.1 cm 0.6 - 1.0 Aortic root Value Ref Root diam 3.4 cm <4.4 Right ventricle Value Ref TERESA, LAX 4.0 cm Ascending aorta Value Ref TERESA minor ax, A4C (H) 4.4 cm 1.9 - 3.5 AAo AP diam, S 3.2 cm ----- mid AAo AP diam/bsa, S 1.3 cm/m^2 ----- Pressure, S 27 mm Hg Aortic arch Value Ref Left atrium Value Ref Arch diam 2.2 cm ----- AP dim, ES 3.90 cm 3.00 - 4.00 Decending aorta Value Ref ML dim, A4C 4.1 cm Panda peak burt 0.95 m/sec ----- SI dim, A4C 4.8 cm Vol/bsa, ES, 1-p 21 ml/m^2 12 - 37 Pulmonary artery Value Ref A4C Pressure, S 13.0 mm Hg ----- Vol/bsa, ES, A/L 29 ml/m^2 16 - 34 Right atrium Value Ref SI dim, ES 5.3 cm 3.4 - 5.3 ML dim, ES, A4C 4.0 cm 2.6 - 4.4 SI dim/bsa, ES, 2.2 cm/m^2 1.8 - 3.0 A4C Estimated RAP 8 mm Hg Legend: (L) and (H) benjamín values outside specified reference range. Amended Kellee Isabel MD 12/01/2019 14:06
[2019-12-01] MEDS ORDERED: Lactated Ringers 1000 ML Bag* 1,000 ML IV SCH (10:00)
--- NOTE | 2019-12-01 10:48 | PN ---
Progress Note - Progress Note Date of Service: 12/01/19 Note: Progress Note -- Critical Care 24 hour events/significant events: - Patient admitted for symptomatic bradycardia. - Had episode of bradycardia then asystole with loss of consciousness, which resolved without intervention - He remains on dopamine drip - His only complaints are some urinary incontinence and chronic back pain ROS: negative except for pertinent positives mentioned above Tele: sinus esthela Vitals: Vital Signs 11/30/19 11/30/19 11/30/19 22:37 22:39 22:40 Temperature 98.1 F Pulse Rate 77 84 85 Respiratory 20 13 18 Rate Blood Pressure 136/73 136/73 (mmHg) O2 Sat by Pulse 94 93 92 Oximetry 11/30/19 11/30/19 11/30/19 23:01 23:08 23:43 Temperature Pulse Rate 74 73 39 Respiratory 20 18 21 Rate Blood Pressure 133/71 126/63 (mmHg) O2 Sat by Pulse 92 93 98 Oximetry 12/01/19 12/01/19 12/01/19 00:00 00:08 00:09 Temperature Pulse Rate 30 86 87 Respiratory 26 16 21 Rate Blood Pressure 126/76 (mmHg) O2 Sat by Pulse 98 98 98 Oximetry 12/01/19 12/01/19 12/01/19 00:39 00:58 01:00 Temperature 98.5 F Pulse Rate 35 119 116 Respiratory 9 20 26 Rate Blood Pressure 147/69 147/69 (mmHg) O2 Sat by Pulse 98 98 95 Oximetry 12/01/19 12/01/19 12/01/19 01:08 01:17 01:36 Temperature 96.8 F 99.6 F Pulse Rate 115 112 107 Respiratory 19 20 21 Rate Blood Pressure 118/79 118/79 120/76 (mmHg) O2 Sat by Pulse 95 96 90 Oximetry 12/01/19 12/01/19 12/01/19 01:49 02:00 02:09 Temperature Pulse Rate 102 102 101 Respiratory 22 24 23 Rate Blood Pressure 120/74 129/72 (mmHg) O2 Sat by Pulse 98 98 99 Oximetry 12/01/19 12/01/19 12/01/19 02:15 02:30 02:45 Temperature Pulse Rate 96 96 98 Respiratory 21 25 18 Rate Blood Pressure 120/69 128/75 136/76 (mmHg) O2 Sat by Pulse 99 99 98 Oximetry 12/01/19 12/01/19 12/01/19 03:00 03:15 03:30 Temperature Pulse Rate 91 95 80 Respiratory 25 25 19 Rate Blood Pressure 126/82 113/73 124/68 (mmHg) O2 Sat by Pulse 99 99 99 Oximetry 12/01/19 12/01/19 12/01/19 03:45 03:47 04:00 Temperature 98.9 F Pulse Rate 95 77 Respiratory 27 19 Rate Blood Pressure 128/87 126/76 (mmHg) O2 Sat by Pulse 99 100 Oximetry 12/01/19 12/01/19 12/01/19 04:15 04:30 04:45 Temperature Pulse Rate 67 70 72 Respiratory 17 17 15 Rate Blood Pressure 119/79 128/65 123/73 (mmHg) O2 Sat by Pulse 100 99 100 Oximetry 12/01/19 12/01/19 12/01/19 05:00 05:15 05:30 Temperature Pulse Rate 74 65 95 Respiratory 15 18 18 Rate Blood Pressure 123/72 114/64 131/80 (mmHg) O2 Sat by Pulse 100 98 98 Oximetry 12/01/19 12/01/19 12/01/19 05:45 06:00 06:15 Temperature Pulse Rate 81 78 68 Respiratory 14 18 18 Rate Blood Pressure 117/58 108/61 101/57 (mmHg) O2 Sat by Pulse 98 99 97 Oximetry 12/01/19 12/01/19 12/01/19 06:30 06:37 06:40 Temperature Pulse Rate 69 78 69 Respiratory 18 18 17 Rate Blood Pressure 107/63 (mmHg) O2 Sat by Pulse 93 93 96 Oximetry 12/01/19 12/01/19 12/01/19 06:45 07:00 07:15 Temperature Pulse Rate 72 62 63 Respiratory 16 18 16 Rate Blood Pressure 102/57 103/53 102/57 (mmHg) O2 Sat by Pulse 97 99 99 Oximetry 12/01/19 12/01/19 12/01/19 07:30 07:45 08:00 Temperature 98.9 F Pulse Rate 75 68 71 Respiratory 21 18 23 Rate Blood Pressure 101/59 96/50 83/46 (mmHg) O2 Sat by Pulse 97 97 98 Oximetry 12/01/19 12/01/19 12/01/19 08:15 08:30 08:45 Temperature Pulse Rate 64 58 68 Respiratory 19 18 19 Rate Blood Pressure 94/48 92/52 93/44 (mmHg) O2 Sat by Pulse 99 96 99 Oximetry 12/01/19 12/01/19 12/01/19 09:00 09:15 09:30 Temperature Pulse Rate 60 65 63 Respiratory 19 21 17 Rate Blood Pressure 111/54 100/55 96/53 (mmHg) O2 Sat by Pulse 100 97 99 Oximetry 12/01/19 12/01/19 12/01/19 09:45 10:00 10:15 Temperature Pulse Rate 60 62 64 Respiratory 19 19 22 Rate Blood Pressure 109/55 104/58 101/54 (mmHg) O2 Sat by Pulse 99 100 97 Oximetry O2: RA Infusions: LR @ 50 Medications: Lactated Ringer's (Lactated Ringers 1000 Ml Bag*) 1,000 mls @ 50 mls/hr IV PER RATE [facility] Levothyroxine Sodium (Synthroid Tab*) 25 mcg PO 0600 [facility] Last Admin: 12/01/19 05:26 Dose: 25 mcg Physical Exam: Constitutional: awake, alert, no distress, no diaphoresis Head: normocephalic, atraumatic Eyes: no pallor, no icterus ENT: dry mucous membranes Neck: soft, supple CVS: normal rate, regular, no murmur Chest/Resp: bilateral air entry, diminished throughout. Some expiratory wheezes LLL. No rhonchi, no acc muscle use Abdomen/GI: soft, nontender, nondistended, BS+ Ext/Msk: warm, pulses+, BLE edema +2 Skin: intact, warm Neuro: awake, alert, orientedx1, no facial droop, PERRL 3mm, EOM intact, strength 5/5 all extremities, sensation intact all extremities. Psych: flat affect Labs: Laboratory Results - last 24 hr 12/01/19 12/01/19 12/01/19 00:05 00:05 00:05 WBC 8.4 RBC 3.54 L Hgb 11.2 L Hct 34 L MCV 95 H MCH 32 H MCHC 33 RDW 16 H Plt Count 206 MPV 8.4 Neut % (Auto) 68.6 Lymph % (Auto) 16.1 [place] % (Auto) 10.1 Eos % (Auto) 4.0 Baso % (Auto) 1.2 Absolute Neuts (auto) 5.7 Absolute Lymphs (auto) 1.3 Absolute Monos (auto) 0.8 Absolute Eos (auto) 0.3 Absolute Basos (auto) 0.1 Absolute Nucleated RBC 0.0 Nucleated RBC % 0.1 INR (Anticoag Therapy) D-Dimer, Quantitative Sodium 139 Potassium 3.9 Chloride 104 Carbon Dioxide 28 Anion Gap 7 BUN 17 Creatinine 0.88 Est GFR ( Amer) 99.4 Est GFR (Non-Af Amer) 82.1 BUN/Creatinine Ratio 19.3 Glucose 110 H Lactic Acid 1.2 Calcium 8.3 L Magnesium 2.1 Total Bilirubin 0.40 AST 11 L ALT 9 Alkaline Phosphatase 71 Troponin I 0.01 C-React Prot High Sens B-Natriuretic Peptide Total Protein 6.1 L Albumin 3.3 Globulin 2.8 Albumin/Globulin Ratio 1.2 TSH 5.88 H 12/01/19 12/01/19 12/01/19 00:05 00:05 03:24 WBC RBC Hgb Hct MCV MCH MCHC RDW Plt Count MPV Neut % (Auto) Lymph % (Auto) [place] % (Auto) Eos % (Auto) Baso % (Auto) Absolute Neuts (auto) Absolute Lymphs (auto) Absolute Monos (auto) Absolute Eos (auto) Absolute Basos (auto) Absolute Nucleated RBC Nucleated RBC % INR (Anticoag Therapy) 1.06 D-Dimer, Quantitative 259 H Sodium Potassium Chloride Carbon Dioxide Anion Gap BUN Creatinine Est GFR ( Amer) Est GFR (Non-Af Amer) BUN/Creatinine Ratio Glucose Lactic Acid Calcium Magnesium Total Bilirubin AST ALT Alkaline Phosphatase Troponin I 0.01 C-React Prot High Sens B-Natriuretic Peptide 70 Total Protein Albumin Globulin Albumin/Globulin Ratio TSH 12/01/19 12/01/19 12/01/19 04:53 04:53 09:28 WBC RBC Hgb Hct MCV MCH MCHC RDW Plt Count MPV Neut % (Auto) Lymph % (Auto) [place] % (Auto) Eos % (Auto) Baso % (Auto) Absolute Neuts (auto) Absolute Lymphs (auto) Absolute Monos (auto) Absolute Eos (auto) Absolute Basos (auto) Absolute Nucleated RBC Nucleated RBC % INR (Anticoag Therapy) D-Dimer, Quantitative 333 H Sodium 140 Potassium 4.2 Chloride 106 Carbon Dioxide 28 Anion Gap 6 BUN 14 Creatinine 0.76 Est GFR ( Amer) 117.7 Est GFR (Non-Af Amer) 97.2 BUN/Creatinine Ratio 18.4 Glucose 98 Lactic Acid Calcium 8.2 L Magnesium Total Bilirubin AST ALT Alkaline Phosphatase Troponin I 0.01 C-React Prot High Sens 1.53 B-Natriuretic Peptide Total Protein Albumin Globulin Albumin/Globulin Ratio TSH Imaging: Echo 12/01: EF 55-60%, possible hypokinesis of apical myocardium, grade I diastolic dysfunction, mild aortic stenosis Chest xray 11/30: No active cardiopulmonary disease Assessment: 84M with known medical history of BPH, DVT (provoked, no longer on anticoagulation), GERD, SBO, memory loss, hypotension, and hypothyroid who presents on 12/01/19 after experiencing an episode of unresponsiveness in the assisted living facility which he resides. Apparently became pale and unresponsive while getting ready for bed. He was found to be bradycardic. It appeared as though he was in third degree heartblock and external pacers applied. Had episode of asystole and unresponsiveness which resolved without intervention. He was admitted to ICU, started on dopamine drip and pacemaker insertion planned. - Third degree heart block - Symptomatic bradycardia Plan: Neuro- - Memory loss, likely dementia: Supportive care, delirium precautions. Avoid benzos CVS- - Hypotension: chronic. BP appears well controlled. -Maintain MAP>65 - Third degree heartblock: acute. Was on dopamine drip @ 2 and HR was well controlled. Will discontinue and monitor - Plan is for pacemaker today. Cardiology requested cultures, CRP, and lactic acid to assure infection is not present Resp- - No active issues. On room air -Keep sat>92% -Aspiration prec, Pulmonary Toilet ID- - Afebrile, WBC WNL - Cardiology requesting cultures, CRP, and lactic acid to assure infection not present GI- -Nutrition: NPO for pacemaker -GI prophylaxis: H2 edy Renal- -strict I/O, replete to keep K>4, Mg>2 -condom cath Heme- - Will order SCDs once BLE doppler is completed and DVT ruled out Endo-Maintain BG<200, insulin protocol as needed Hypothyroidism: chronic. Continue home levothyroxine Musculsk- pressure ulcer prophylaxis. Bedrest. Wounds- none Nutrition- NPO DVT prophylaxis: SCDs when DVT ruled out GI prophylaxis: H2 edy Disposition: Patient requires Critical Care/ICU for symptomatic bradycardia, third degree heart block Patient clinical status: critical Code Status:full Total Critical Care time is 30 minutes
[2019-12-01] MEDS ORDERED: Clindamycin 300 MG IVPREMIX* 300 MG/50 ML SDV IVPB ONE (13:21)
[2019-12-01 13:43] LABS: Urine Appearance Clear; Urine Bilirubin Negative (Negative); Urine Blood Negative (Negative); Urine Color Straw; Urine Glucose Negative (Negative); Urine Ketones Negative (Negative); Urine Nitrite Negative (Negative); Urine Protein Negative (Negative); Urine Specific Gravity 1.008 (1.010-1.030); Urine Urobilinogen Negative (Negative)
[2019-12-01] MEDS ORDERED: Lidocaine 1% INJ* 10 MG/ML 30 ML SDV ONE ×2 (13:50→14:12)
[2019-12-01] MEDS ORDERED: fentaNYL* 50 MCG/ML 2 ML VIAL (100 MCG VIAL) ONE (14:12)
[2019-12-01] MEDS ORDERED: Midazolam* 1 MG/ML 5 ML VIAL (5 MG) ONE (14:12)
[2019-12-01] MEDS ORDERED: Iohexol 300* (CONTRAST) 10 ML SDV ONE (14:13)
[2019-12-01] MEDS ORDERED: Acetaminophen TAB* 325 MG PO PRN (21:12)
[2019-12-01] MEDS: traMADol TAB* 50 MG PO PRN (21:24)
[2019-12-01] MEDS: Famotidine TAB* 20 MG PO SCH (21:24)
[2019-12-01] MEDS: Clindamycin 300 MG IVPREMIX* 300 MG/50 ML SDV IV SCH (21:24)
[2019-12-02] MEDS: Levothyroxine TAB* 25 MCG TAB PO SCH (05:28)
[2019-12-02] MEDS: Clindamycin 300 MG IVPREMIX* 300 MG/50 ML SDV IV SCH (05:28)
--- NOTE | 2019-12-02 07:48 | PN ---
Subjective Date of Service: 12/02/19 Interval History: Transferred from ICU this morning. No acute events overnight. Had PPM placed yesterday, then started on clindamycin. Pending final plan by cardiology and PT. Patient reports back pain on movement, which is chronic. Denies chest pain, pain around site of PPM, SOB, fevers, chills. Objective Active Medications: Acetaminophen (Tylenol Tab*) 650 mg PO Q6H PRN PRN Reason: PAIN - MILD Ascorbic Acid (Vitamin C Tab*) 1,000 mg PO DAILY [facility] Last Admin: 12/02/19 08:57 Dose: 1,000 mg Cholecalciferol (Vitamin D Tab*) 1,000 units PO DAILY [facility] Last Admin: 12/02/19 08:57 Dose: 1,000 units Clindamycin HCl (Cleocin Cap*) 150 mg PO TID [facility] Stop: 12/06/19 13:59 Last Admin: 12/02/19 13:40 Dose: 150 mg Cyanocobalamin (Vitamin B12 Tab*) 125 mcg PO DAILY [facility] Last Admin: 12/02/19 08:56 Dose: 125 mcg Enoxaparin Sodium (Lovenox(*)) 40 mg SUBCUT BEDTIME [facility] Famotidine (Pepcid Tab*) 20 mg PO BID PRN; Protocol PRN Reason: heart burn Finasteride (Proscar Tab*) 5 mg PO DAILY [facility] Last Admin: 12/02/19 08:57 Dose: 5 mg Fish Oil (Fish Oil (Nf)) 1,000 mg PO DAILY [facility]; Protocol Last Admin: 12/02/19 08:56 Dose: 1,000 mg Lactobacillus Rhamnosus (Lactobacillus Acidophilus*) 1 tab PO BID [facility] Stop: 12/06/19 20:59 Levothyroxine Sodium (Synthroid Tab*) 25 mcg PO 0600 [facility] Last Admin: 12/02/19 05:28 Dose: 25 mcg Multivitamins/Minerals (Theragran/Minerals Tab*) 1 tab PO DAILY [facility] Last Admin: 12/02/19 08:57 Dose: 1 tab Tramadol HCl (Ultram*) 50 mg PO Q6HR PRN PRN Reason: PAIN - MILD Last Admin: 12/02/19 10:20 Dose: 50 mg Vital Signs - 8 hr 12/02/19 12/02/19 12/02/19 00:00 00:30 01:00 Temperature Pulse Rate 85 63 74 Respiratory 18 17 17 Rate Blood Pressure 117/70 131/68 (mmHg) O2 Sat by Pulse 97 97 97 Oximetry 12/02/19 12/02/19 12/02/19 01:01 01:31 02:00 Temperature Pulse Rate 75 76 82 Respiratory 19 18 21 Rate Blood Pressure 113/79 111/67 117/65 (mmHg) O2 Sat by Pulse 98 97 97 Oximetry 12/02/19 12/02/19 12/02/19 02:30 03:00 04:00 Temperature Pulse Rate 79 96 93 Respiratory 19 19 21 Rate Blood Pressure 112/68 135/82 (mmHg) O2 Sat by Pulse 96 96 92 Oximetry 12/02/19 12/02/19 12/02/19 04:01 05:00 06:00 Temperature 100.1 F Pulse Rate 95 95 94 Respiratory 21 18 22 Rate Blood Pressure 120/67 124/74 (mmHg) O2 Sat by Pulse 93 93 95 Oximetry 12/02/19 06:01 Temperature Pulse Rate 92 Respiratory 20 Rate Blood Pressure 127/85 (mmHg) O2 Sat by Pulse 95 Oximetry Oxygen Devices in Use Now: None Appearance: frail elderly man in NAD until moved to chair Eyes: No Scleral Icterus Ears/Nose/Mouth/Throat: Clear Oropharnyx, Mucous Membranes Moist Neck: NL Appearance and Movements; NL JVP, Trachea Midline Respiratory: Symmetrical Chest Expansion and Respiratory Effort, Clear to Auscultation Cardiovascular: - - rrr no mgr, PPM stables intact without e/o hematoma Abdominal: NL Sounds; No Tenderness; No Distention, No Hepatosplenomegaly Extremities: - - 1+ LE edema R > L Result Diagrams: 12/01/19 00:05 12/01/19 04:53 Microbiology and Other Data: Microbiology 12/01/19 01:41 Nasal Screen MRSA (PCR) - Final Nasal Mrsa Detected Assess/Plan/Problems-Billing Assessment: 84M with hypothyroidism, BPH, MCI vs dementia, presents with syncope, found with symptomatic bradycardia vs 3rd degree heart block, now s/p PPM. - Patient Problems (1) Symptomatic bradycardia Comment: With possible 3rd deg HB. Pacer placed on 12/01. - pending final cardiology recommendations - started on clinda for 4 days post-op (2) Physical deconditioning Comment: - Continue PT, recommending KAYLEE (3) Low blood pressure Comment: Previously with symptommatic hypotension, even when HR normal. So far BPs normal here. - holding home midodrine BID (4) Chronic back pain Comment: h/o compression fractures. - continue home Tramadol (5) BPH with obstruction/lower urinary tract symptoms Comment: - cont finasteride (6) GERD (gastroesophageal reflux disease) Comment: - Continue famotidine bid prn (7) Hypothyroid Comment: - cont home levothyroxine 25mcg daily (8) DVT prophylaxis Comment: - lovenox (9) Full code status Comment:
--- NOTE | 2019-12-02 08:27 | PN ---
Subjective Date of Service: 12/02/19 Interval History: s/p pacemaker pod 1 for heart block Patient feels well without chest pain or dyspnea wound examined, liberty intact without evidence of hematoma Medications Active Medications: Acetaminophen (Tylenol Tab*) 650 mg PO Q6H PRN PRN Reason: PAIN - MILD Ascorbic Acid (Vitamin C Tab*) 1,000 mg PO DAILY [facility] Cholecalciferol (Vitamin D Tab*) 1,000 units PO DAILY [facility] Cyanocobalamin (Vitamin B12 Tab*) 125 mcg PO DAILY [facility] Famotidine (Pepcid Tab*) 20 mg PO BID [facility]; Protocol Last Admin: 12/01/19 21:24 Dose: 20 mg Finasteride (Proscar Tab*) 5 mg PO DAILY [facility] Fish Oil (Fish Oil (Nf)) 1,000 mg PO DAILY [facility]; Protocol Clindamycin HCl/Dextrose (Cleocin 300 Mg Ivpremix(*)) 300 mg in 50 mls @ 200 mls/hr IV Q8HR [facility] Last Admin: 12/02/19 05:28 Dose: 200 mls/hr Levothyroxine Sodium (Synthroid Tab*) 25 mcg PO 0600 [facility] Last Admin: 12/02/19 05:28 Dose: 25 mcg Multivitamins/Minerals (Theragran/Minerals Tab*) 1 tab PO DAILY [facility] Tramadol HCl (Ultram*) 50 mg PO Q6HR PRN PRN Reason: PAIN - MILD Last Admin: 12/01/19 21:24 Dose: 50 mg Objective Vital Signs: Temp Pulse Resp BP Pulse Ox 100.1 F 92 20 127/85 95 12/02/19 06:00 12/02/19 06:01 12/02/19 06:01 12/02/19 06:01 12/02/19 06:01 Oxygen Devices in Use Now: Nasal Cannula Appearance: nad Eyes: No Scleral Icterus, PERRLA Ears/Nose/Mouth/Throat: NL Teeth, Lips, Gums - somewhat dry mucous membranes Neck: NL Appearance and Movements; NL JVP Respiratory: Clear to Auscultation Cardiovascular: NL Sounds; No Murmurs; No JVD, RRR, - - pacemaker liberty intact without hematoma or drainage Abdominal: NL Sounds; No Tenderness; No Distention - centripitally obsese Extremities: No Edema, - - RLE 3+ edema, LLE mild edema Skin: No Rash or Ulcers - a bit pale. Neurological: - - awake, alert Lines/Tubes/Other Access: Clean, Dry and Intact Peripheral IV Laboratory Results: 12/01/19 00:05 12/01/19 04:53 INR (Anticoag Therapy) 1.06 (0.82-1.09) 12/01/19 00:05 Total Bilirubin 0.40 mg/dL (0.2-1.0) 12/01/19 00:05 AST 11 U/L (13-39) L 12/01/19 00:05 ALT 9 U/L (7-52) 12/01/19 00:05 Alkaline Phosphatase 71 U/L (34-104) 12/01/19 00:05 B-Natriuretic Peptide 70 pg/mL (<=100) 12/01/19 00:05 Total Protein 6.1 g/dL (6.4-8.9) L 12/01/19 00:05 Albumin 3.3 g/dL (3.2-5.2) 12/01/19 00:05 Globulin 2.8 g/dL (2-4) 12/01/19 00:05 Albumin/Globulin Ratio 1.2 (1-3) 12/01/19 00:05 TSH 5.88 mcIU/mL (0.34-5.60) H 12/01/19 00:05 12/01/19 12/01/19 12/01/19 00:05 03:24 04:53 Troponin I 0.01 0.01 0.01 Diagnostic Imaging: CXR Exam Date: 12/02/19 FINDINGS: CARDIOMEDIASTINAL SILHOUETTE: The aorta is tortuous. The cardiomediastinal silhouette is otherwise unremarkable. CARLA: The carla are normal. PLEURA: The costophrenic angles are sharp. There is elevation of the right hemidiaphragm.. There is no appreciable pneumothorax. LUNG PARENCHYMA: There is hyperinflation with flattening of the diaphragm and expansion of the AP diameter of the chest. ABDOMEN: The upper abdomen is clear. There is no subphrenic gas. BONES AND SOFT TISSUES: No bone or soft tissue abnormalities are noted. OTHER: A left-sided dual-lead pacemaker is noted. IMPRESSION: 1. LIMITED STUDY. 2. HYPERINFLATION. 3. ELEVATION THE RIGHT HEMIDIAPHRAGM WHICH CAN BE SEEN WITH DIAPHRAGMATIC PARALYSIS. 4. NO APPRECIABLE PNEUMOTHORAX. Assessment/Plan 84 yo man admitted with symptomatic high grade heart block s/p POD 1 pacemaker. 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
[2019-12-02] MEDS: Cyanocobalamin TAB* 500 MCG PO SCH (08:56)
[2019-12-02] MEDS: CMCS:OMEGA-3 FATTY ACIDS (NF) 1,000 MG CAP PO SCH (08:56)
[2019-12-02] MEDS: Famotidine TAB* 20 MG PO SCH (08:57)
[2019-12-02] MEDS: Finasteride TAB* 5 MG PO SCH (08:57)
[2019-12-02] MEDS: Cholecalciferol TAB* 1000 UNITS PO SCH (08:57)
[2019-12-02] MEDS: Ascorbic Acid TAB* 500 MG PO SCH (08:57)
[2019-12-02] MEDS: Multivitamins/Minerals TAB PO SCH (08:57)
--- NOTE | 2019-12-02 09:51 | PROCNOTE ---
Cardiology Procedure Note Dual chamber pacemaker interrogation 12/02/2019 biotronik Set DDD [id number] 8 years, 11 months battery life A: threshold 0.4 V @ 0.4 ms, set 3.0. sense 1.7 mv, 487 ohms V: threshold 0.4 V @ 0.4 ms, set 3.0. sense 4.1 mv, 877 ohms 2% AP, 1% SIZING SPRAYER No arrhythmias Impression: Normal pacemaker function
[2019-12-02] MEDS: traMADol TAB* 50 MG PO PRN (10:20)
[2019-12-02] MEDS: Clindamycin CAP* 150 MG PO SCH ×2 (13:40→21:51)
[2019-12-02] MEDS ORDERED: Famotidine TAB* 20 MG PO PRN (14:35)
[2019-12-02] MEDS: Lactobacillus Acidophilus* 1 TAB PO SCH (21:51)
[2019-12-02] MEDS: Enoxaparin(*) 40 MG/0.4 ML SYR SUBCUT SCH (21:55)
[2019-12-03] MEDS: Levothyroxine TAB* 25 MCG TAB PO SCH (05:08)
--- NOTE | 2019-12-03 08:07 | PN ---
Subjective Date of Service: 12/03/19 Interval History: No acute events overnight. Pending CM for KAYLEE placement. Reports that his chronic back pain is significantly improved from yesterday. No pain around pacer site. Denies palpitations, but does think he's felt light headed for some of the morning. SBP 110s. Staying in chair. PT recommends up only with assistance. Objective Active Medications: Acetaminophen (Tylenol Tab*) 650 mg PO Q6H PRN PRN Reason: PAIN - MILD Ascorbic Acid (Vitamin C Tab*) 1,000 mg PO DAILY [facility] Last Admin: 12/02/19 08:57 Dose: 1,000 mg Cholecalciferol (Vitamin D Tab*) 1,000 units PO DAILY [facility] Last Admin: 12/02/19 08:57 Dose: 1,000 units Clindamycin HCl (Cleocin Cap*) 150 mg PO TID [facility] Stop: 12/06/19 13:59 Last Admin: 12/02/19 21:51 Dose: 150 mg Cyanocobalamin (Vitamin B12 Tab*) 125 mcg PO DAILY [facility] Last Admin: 12/02/19 08:56 Dose: 125 mcg Enoxaparin Sodium (Lovenox(*)) 40 mg SUBCUT BEDTIME [facility] Last Admin: 12/02/19 21:55 Dose: 40 mg Famotidine (Pepcid Tab*) 20 mg PO BID PRN; Protocol PRN Reason: heart burn Finasteride (Proscar Tab*) 5 mg PO DAILY [facility] Last Admin: 12/02/19 08:57 Dose: 5 mg Fish Oil (Fish Oil (Nf)) 1,000 mg PO DAILY [facility]; Protocol Last Admin: 12/02/19 08:56 Dose: 1,000 mg Lactobacillus Rhamnosus (Lactobacillus Acidophilus*) 1 tab PO BID [facility] Stop: 12/06/19 20:59 Last Admin: 12/02/19 21:51 Dose: 1 tab Levothyroxine Sodium (Synthroid Tab*) 25 mcg PO 0600 [facility] Last Admin: 12/03/19 05:08 Dose: 25 mcg Multivitamins/Minerals (Theragran/Minerals Tab*) 1 tab PO DAILY [facility] Last Admin: 12/02/19 08:57 Dose: 1 tab Tramadol HCl (Ultram*) 50 mg PO Q6HR PRN PRN Reason: PAIN - MILD Last Admin: 12/02/19 10:20 Dose: 50 mg Vital Signs - 8 hr 12/03/19 03:00 Temperature 98.3 F Pulse Rate 82 Respiratory 17 Rate Blood Pressure 132/74 (mmHg) O2 Sat by Pulse 93 Oximetry Oxygen Devices in Use Now: None Appearance: chronically ill and frail appearing elderly man in NAD, sitting in chair eating breakfast, alert and interactive Eyes: No Scleral Icterus Ears/Nose/Mouth/Throat: Clear Oropharnyx, Mucous Membranes Moist Neck: NL Appearance and Movements; NL JVP, Trachea Midline Respiratory: Symmetrical Chest Expansion and Respiratory Effort, Clear to Auscultation Cardiovascular: - - rrr no mgr, PPM liberty intact without e/o hematoma Extremities: - - 1+ LE edema R > L Neurological: - - knows [facility] and "end of November 2019" Result Diagrams: 12/01/19 00:05 12/01/19 04:53 Microbiology and Other Data: Microbiology 12/01/19 01:41 Nasal Screen MRSA (PCR) - Final Nasal Mrsa Detected Assess/Plan/Problems-Billing Assessment: 84M with hypothyroidism, BPH, MCI vs dementia, presents with syncope, found with symptomatic bradycardia vs 3rd degree heart block, now s/p PPM. - Patient Problems (1) Symptomatic bradycardia Comment: With possible 3rd deg HB. Pacer placed on 12/01. - appreciate Cardiology, will need f/u 1 week post-procedure for device check and staple removal - started on clinda for 4 days post-op (2) Physical deconditioning Comment: - Continue PT, recommending KAYLEE (3) Low blood pressure Comment: Previously with symptommatic hypotension, even when HR normal. So far BPs normal here. - holding home midodrine BID (4) Chronic back pain Comment: h/o compression fractures. - continue home Tramadol (5) BPH with obstruction/lower urinary tract symptoms Comment: - cont finasteride (6) GERD (gastroesophageal reflux disease) Comment: - Continue famotidine bid prn (7) Hypothyroid Comment: - cont home levothyroxine 25mcg daily (8) DVT prophylaxis Comment: - lovenox (9) Full code status Comment:
[2019-12-03] MEDS: Cholecalciferol TAB* 1000 UNITS PO SCH (09:26)
[2019-12-03] MEDS: Finasteride TAB* 5 MG PO SCH (09:26)
[2019-12-03] MEDS: Multivitamins/Minerals TAB PO SCH (09:26)
[2019-12-03] MEDS: Ascorbic Acid TAB* 500 MG PO SCH (09:26)
[2019-12-03] MEDS: Cyanocobalamin TAB* 500 MCG PO SCH (09:26)
[2019-12-03] MEDS: Clindamycin CAP* 150 MG PO SCH ×3 (09:26→22:02)
[2019-12-03] MEDS: Lactobacillus Acidophilus* 1 TAB PO SCH ×2 (09:26→22:02)
[2019-12-03] MEDS: CMCS:OMEGA-3 FATTY ACIDS (NF) 1,000 MG CAP PO SCH ×2 (09:29→09:41)
[2019-12-03] MEDS: traMADol TAB* 50 MG PO PRN (14:43)
[2019-12-03] MEDS: Enoxaparin(*) 40 MG/0.4 ML SYR SUBCUT SCH (22:02)
[2019-12-04] MEDS: Levothyroxine TAB* 25 MCG TAB PO SCH (06:10)
[2019-12-04] MEDS: Clindamycin CAP* 150 MG PO SCH ×3 (08:37→21:34)
[2019-12-04] MEDS: Finasteride TAB* 5 MG PO SCH (08:37)
[2019-12-04] MEDS: CMCS:OMEGA-3 FATTY ACIDS (NF) 1,000 MG CAP PO SCH (08:38)
[2019-12-04] MEDS: Cholecalciferol TAB* 1000 UNITS PO SCH (08:38)
[2019-12-04] MEDS: Lactobacillus Acidophilus* 1 TAB PO SCH ×2 (08:38→21:34)
[2019-12-04] MEDS: Ascorbic Acid TAB* 500 MG PO SCH (08:38)
[2019-12-04] MEDS: Multivitamins/Minerals TAB PO SCH (08:39)
[2019-12-04] MEDS: Cyanocobalamin TAB* 500 MCG PO SCH (08:39)
--- NOTE | 2019-12-04 16:29 | PN ---
Subjective Date of Service: 12/04/19 Interval History: Woke up from sleeping has no complaints Denies pain, no CP, SOB, N/V Objective Active Medications: Acetaminophen (Tylenol Tab*) 650 mg PO Q6H PRN PRN Reason: PAIN - MILD Ascorbic Acid (Vitamin C Tab*) 1,000 mg PO DAILY [facility] Last Admin: 12/04/19 08:38 Dose: 1,000 mg Cholecalciferol (Vitamin D Tab*) 1,000 units PO DAILY [facility] Last Admin: 12/04/19 08:38 Dose: 1,000 units Clindamycin HCl (Cleocin Cap*) 150 mg PO TID [facility] Stop: 12/06/19 13:59 Last Admin: 12/04/19 14:26 Dose: 150 mg Cyanocobalamin (Vitamin B12 Tab*) 125 mcg PO DAILY [facility] Last Admin: 12/04/19 08:39 Dose: 125 mcg Enoxaparin Sodium (Lovenox(*)) 40 mg SUBCUT BEDTIME [facility] Last Admin: 12/03/19 22:02 Dose: 40 mg Famotidine (Pepcid Tab*) 20 mg PO BID PRN; Protocol PRN Reason: heart burn Finasteride (Proscar Tab*) 5 mg PO DAILY [facility] Last Admin: 12/04/19 08:37 Dose: 5 mg Fish Oil (Fish Oil (Nf)) 1,000 mg PO DAILY [facility]; Protocol Last Admin: 12/04/19 08:38 Dose: Not Given Lactobacillus Rhamnosus (Lactobacillus Acidophilus*) 1 tab PO BID [facility] Stop: 12/06/19 20:59 Last Admin: 12/04/19 08:38 Dose: 1 tab Levothyroxine Sodium (Synthroid Tab*) 25 mcg PO 0600 [facility] Last Admin: 12/04/19 06:10 Dose: 25 mcg Multivitamins/Minerals (Theragran/Minerals Tab*) 1 tab PO DAILY [facility] Last Admin: 12/04/19 08:39 Dose: 1 tab Tramadol HCl (Ultram*) 50 mg PO Q6HR PRN PRN Reason: PAIN - MILD Last Admin: 12/03/19 14:43 Dose: 50 mg Vital Signs - 8 hr 12/04/19 12/04/19 12/04/19 11:57 12:00 15:00 Temperature 97.5 F 98.7 F Pulse Rate 90 79 Respiratory 20 22 Rate Blood Pressure 118/68 117/72 (mmHg) O2 Sat by Pulse 98 95 94 Oximetry Oxygen Devices in Use Now: Nasal Cannula Appearance: stated age, NAD Eyes: No Scleral Icterus, PERRLA Ears/Nose/Mouth/Throat: NL Teeth, Lips, Gums, Clear Oropharnyx Neck: NL Appearance and Movements; NL JVP, Trachea Midline Respiratory: Symmetrical Chest Expansion and Respiratory Effort, Clear to Auscultation Cardiovascular: RRR Abdominal: NL Sounds; No Tenderness; No Distention, No Hepatosplenomegaly Extremities: - - left arm in binder Neurological: Alert and Oriented x 3 Result Diagrams: 12/01/19 00:05 12/01/19 04:53 Microbiology and Other Data: Microbiology 12/01/19 01:41 Nasal Screen MRSA (PCR) - Final Nasal Mrsa Detected Assess/Plan/Problems-Billing Assessment: 84M with hypothyroidism, BPH, MCI vs dementia, presents with syncope, found with 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 possible 3rd degress, definitely symptomatic with LOC f/u 1 week post-procedure for device check and staple removal - started on clinda for 4 days post-op (2) Hypothyroid Comment: - cont home levothyroxine 25mcg daily (3) Low blood pressure Comment: - holding home midodrine BID (4) Physical deconditioning Comment: - Continue PT, recommending KAYLEE (5) DVT prophylaxis Comment: - lovenox
[2019-12-04] MEDS: Enoxaparin(*) 40 MG/0.4 ML SYR SUBCUT SCH (21:34)
[2019-12-04] MEDS: traMADol TAB* 50 MG PO PRN (21:45)
[2019-12-05] MEDS: Levothyroxine TAB* 25 MCG TAB PO SCH (05:00)
[2019-12-05] MEDS: Cholecalciferol TAB* 1000 UNITS PO SCH (10:06)
[2019-12-05] MEDS: Clindamycin CAP* 150 MG PO SCH ×3 (10:07→20:06)
[2019-12-05] MEDS: Ascorbic Acid TAB* 500 MG PO SCH (10:07)
[2019-12-05] MEDS: Lactobacillus Acidophilus* 1 TAB PO SCH ×2 (10:08→20:06)
[2019-12-05] MEDS: Cyanocobalamin TAB* 500 MCG PO SCH (10:08)
[2019-12-05] MEDS: Multivitamins/Minerals TAB PO SCH (10:08)
[2019-12-05] MEDS: Finasteride TAB* 5 MG PO SCH (10:09)
[2019-12-05] MEDS: CMCS:OMEGA-3 FATTY ACIDS (NF) 1,000 MG CAP PO SCH (11:19)
--- NOTE | 2019-12-05 16:03 | PN ---
Subjective Date of Service: 12/05/19 Interval History: Denies chest pain, SOB pain in left shoulder with pain but controlled Objective Active Medications: Acetaminophen (Tylenol Tab*) 650 mg PO Q6H PRN PRN Reason: PAIN - MILD Ascorbic Acid (Vitamin C Tab*) 1,000 mg PO DAILY [facility] Last Admin: 12/05/19 10:07 Dose: 1,000 mg Cholecalciferol (Vitamin D Tab*) 1,000 units PO DAILY [facility] Last Admin: 12/05/19 10:06 Dose: 1,000 units Clindamycin HCl (Cleocin Cap*) 150 mg PO TID [facility] Stop: 12/06/19 13:59 Last Admin: 12/05/19 15:07 Dose: 150 mg Cyanocobalamin (Vitamin B12 Tab*) 125 mcg PO DAILY [facility] Last Admin: 12/05/19 10:08 Dose: 125 mcg Enoxaparin Sodium (Lovenox(*)) 40 mg SUBCUT BEDTIME [facility] Last Admin: 12/04/19 21:34 Dose: 40 mg Famotidine (Pepcid Tab*) 20 mg PO BID PRN; Protocol PRN Reason: heart burn Finasteride (Proscar Tab*) 5 mg PO DAILY [facility] Last Admin: 12/05/19 10:09 Dose: 5 mg Fish Oil (Fish Oil (Nf)) 1,000 mg PO DAILY [facility]; Protocol Last Admin: 12/05/19 11:19 Dose: 1,000 mg Lactobacillus Rhamnosus (Lactobacillus Acidophilus*) 1 tab PO BID [facility] Stop: 12/06/19 20:59 Last Admin: 12/05/19 10:08 Dose: 1 tab Levothyroxine Sodium (Synthroid Tab*) 25 mcg PO 0600 [facility] Last Admin: 12/05/19 05:00 Dose: 25 mcg Multivitamins/Minerals (Theragran/Minerals Tab*) 1 tab PO DAILY [facility] Last Admin: 12/05/19 10:08 Dose: 1 tab Tramadol HCl (Ultram*) 50 mg PO Q6HR PRN PRN Reason: PAIN - MILD Last Admin: 12/04/19 21:45 Dose: 50 mg Vital Signs - 8 hr 12/05/19 12/05/19 12/05/19 10:25 10:27 11:29 Temperature 97.6 F Pulse Rate 87 Respiratory 20 18 Rate Blood Pressure 108/61 (mmHg) O2 Sat by Pulse 98 98 Oximetry 12/05/19 15:18 Temperature 97.9 F Pulse Rate 86 Respiratory 20 Rate Blood Pressure 109/58 (mmHg) O2 Sat by Pulse 95 Oximetry Oxygen Devices in Use Now: Nasal Cannula Appearance: NAD Eyes: No Scleral Icterus, PERRLA Ears/Nose/Mouth/Throat: NL Teeth, Lips, Gums, Clear Oropharnyx Neck: NL Appearance and Movements; NL JVP Respiratory: Symmetrical Chest Expansion and Respiratory Effort, Clear to Auscultation Cardiovascular: RRR Lymphatic: No Cervical Adenopathy Extremities: No Edema Neurological: Alert and Oriented x 3 Result Diagrams: 12/01/19 00:05 12/01/19 04:53 Microbiology and Other Data: Microbiology 12/01/19 01:41 Nasal Screen MRSA (PCR) - Final Nasal Mrsa Detected Assess/Plan/Problems-Billing Assessment: 84M with hypothyroidism, BPH, MCI vs dementia, presents with syncope, found with 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 possible 3rd degress, definitely symptomatic with LOC f/u 1 week post-procedure for device check and staple removal - started on clinda for 4 days post-op (2) Hypothyroid Comment: - cont home levothyroxine 25mcg daily (3) Low blood pressure Comment: - holding home midodrine BID (4) Physical deconditioning Comment: - Continue PT, recommending KAYLEE (5) DVT prophylaxis Comment: - lovenox
[2019-12-05] MEDS: Enoxaparin(*) 40 MG/0.4 ML SYR SUBCUT SCH (20:05)
[2019-12-06] MEDS: Levothyroxine TAB* 25 MCG TAB PO SCH (06:45)
--- NOTE | 2019-12-06 08:26 | PN ---
Subjective Date of Service: 12/06/19 Interval History: No complaints this AM. Denies any pain including CP No SOB Objective Active Medications: Acetaminophen (Tylenol Tab*) 650 mg PO Q6H PRN PRN Reason: PAIN - MILD Ascorbic Acid (Vitamin C Tab*) 1,000 mg PO DAILY [facility] Last Admin: 12/05/19 10:07 Dose: 1,000 mg Cholecalciferol (Vitamin D Tab*) 1,000 units PO DAILY [facility] Last Admin: 12/05/19 10:06 Dose: 1,000 units Clindamycin HCl (Cleocin Cap*) 150 mg PO TID [facility] Stop: 12/06/19 13:59 Last Admin: 12/05/19 20:06 Dose: 150 mg Cyanocobalamin (Vitamin B12 Tab*) 125 mcg PO DAILY [facility] Last Admin: 12/05/19 10:08 Dose: 125 mcg Enoxaparin Sodium (Lovenox(*)) 40 mg SUBCUT BEDTIME [facility] Last Admin: 12/05/19 20:05 Dose: 40 mg Famotidine (Pepcid Tab*) 20 mg PO BID PRN; Protocol PRN Reason: heart burn Finasteride (Proscar Tab*) 5 mg PO DAILY [facility] Last Admin: 12/05/19 10:09 Dose: 5 mg Fish Oil (Fish Oil (Nf)) 1,000 mg PO DAILY [facility]; Protocol Last Admin: 12/05/19 11:19 Dose: 1,000 mg Lactobacillus Rhamnosus (Lactobacillus Acidophilus*) 1 tab PO BID [facility] Stop: 12/06/19 20:59 Last Admin: 12/05/19 20:06 Dose: 1 tab Levothyroxine Sodium (Synthroid Tab*) 25 mcg PO 0600 [facility] Last Admin: 12/06/19 06:45 Dose: 25 mcg Multivitamins/Minerals (Theragran/Minerals Tab*) 1 tab PO DAILY [facility] Last Admin: 12/05/19 10:08 Dose: 1 tab Tramadol HCl (Ultram*) 50 mg PO Q6HR PRN PRN Reason: PAIN - MILD Last Admin: 12/04/19 21:45 Dose: 50 mg Vital Signs - 8 hr 12/06/19 12/06/19 03:00 07:34 Temperature 99.3 F 97.7 F Pulse Rate 73 72 Respiratory 17 15 Rate Blood Pressure 118/56 119/64 (mmHg) O2 Sat by Pulse 93 94 Oximetry Oxygen Devices in Use Now: None Appearance: sitting up in bed, appears stated age, NAD Eyes: No Scleral Icterus Ears/Nose/Mouth/Throat: NL Teeth, Lips, Gums Neck: NL Appearance and Movements; NL JVP, Trachea Midline Respiratory: Symmetrical Chest Expansion and Respiratory Effort, Clear to Auscultation Cardiovascular: RRR, - - soft 2/6 TAMI Abdominal: NL Sounds; No Tenderness; No Distention, No Hepatosplenomegaly Lymphatic: No Cervical Adenopathy Extremities: No Edema, - - left arm braced Skin: - - dressing over PPM site Neurological: - - AOx2 to self and year reported he was in "[facility] " Result Diagrams: 12/01/19 00:05 12/01/19 04:53 Microbiology and Other Data: Microbiology 12/01/19 01:41 Nasal Screen MRSA (PCR) - Final Nasal Mrsa Detected Assess/Plan/Problems-Billing Assessment: 84M with hypothyroidism, BPH, MCI vs dementia, presents with syncope, found with 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 possible 3rd degress, definitely symptomatic with LOC f/u 1 week post-procedure for device check and staple removal - started on clinda for 4 days post-op - completed 12/06 (2) Hypothyroid Comment: - cont home levothyroxine 25mcg daily (3) Low blood pressure Comment: - holding home midodrine BID (BPs stable) (4) Physical deconditioning Comment: - Continue PT, recommending KAYLEE - pending approval (5) DVT prophylaxis Comment: - lovenox
[2019-12-06] MEDS: Ascorbic Acid TAB* 500 MG PO SCH (09:27)
[2019-12-06] MEDS: Lactobacillus Acidophilus* 1 TAB PO SCH (09:27)
[2019-12-06] MEDS: Multivitamins/Minerals TAB PO SCH (09:27)
[2019-12-06] MEDS: Finasteride TAB* 5 MG PO SCH (09:27)
[2019-12-06] MEDS: Cholecalciferol TAB* 1000 UNITS PO SCH (09:27)
[2019-12-06] MEDS: Clindamycin CAP* 150 MG PO SCH (09:27)
[2019-12-06] MEDS: CMCS:OMEGA-3 FATTY ACIDS (NF) 1,000 MG CAP PO SCH (09:29)
[2019-12-06] MEDS: Cyanocobalamin TAB* 500 MCG PO SCH (09:29)
[2019-12-06 11:03] VITALS: BP 123/70
--- NOTE | 2019-12-06 13:01 | DS ---
CC: Dr. Alexandre; Dr. Isabel * DATE OF ADMISSION: 12/01/2019. DATE OF DISCHARGE: 12/06/2019. PRIMARY CARE PHYSICIAN: Dr. Alexandre. FIRE EXTINGUISHER TECHNICIAN: Dr. Isabel. CONDITION ON DISCHARGE: Improved. DISPOSITION ON DISCHARGE: To [facility]. ACTIVITY ON DISCHARGE: As tolerated. Left arm is in restriction after placement of a permanent placement. DIET ON DISCHARGE: Heart healthy. PRIMARY DIAGNOSIS: High grade heart block, status post placement of permanent pacemaker on 12/02/2019. SECONDARY DIAGNOSES: 1. BPH. 2. Unprovoked DVT in 1975, not on anticoagulation. 3. Constipation. 4. Hypothyroidism. 5. History of SBO. 6. Hemorrhoids MEDICATIONS AT DISCHARGE: 1. [place] 3 fatty oil one tab daily. 2. Levothyroxine 25 mcg daily. 3. Finasteride 5 mg daily. 4. Vitamin B12 100 mcg daily. 5. Vitamin D3 1,000 units daily. 6. Vitamin C 1,000 mg daily. 7. Acetaminophen 1,000 mg every 6 hours as needed for pain. 8. PreserVision AREDS soft get one cap twice daily. 9. Ranitidine 150 mg twice daily. 10. Tramadol 50 mg every 6 hours as needed for pain mild to moderate. CONSULTATIONS DURING THE COURSE OF THE HOSPITAL STAY: Cardiology. PROCEDURES PERFORMED DURING THE HOSPITAL STAY: Permanent pacemaker placed 12/02. HISTORY OF PRESENT ILLNESS/HOSPITAL COURSE: This is an 84-year-old gentleman with a past medical history as outlined in the history of present illness on the day of admission who presented to the hospital with an episode of unresponsiveness/syncope from [facility] followed by dizziness. He was placed on an external pacer and followed by an episode of asystole that self-resolved prior to CPR in the emergency room. He was placed on a Dopamine infusion and received Atropine and was monitored in the ICU. A permanent pacemaker was placed. The patient recovered well. He had physical deconditioning which required physical therapy and placement in at least short- term rehab upon discharge. Of note, the patient was previously on Midodrine twice daily at a dose of 5 mg twice daily; however, his blood pressures were normal ranging in the 1-teens to 120 systolic over 50s to 70s diastolic. There were no complications during the course of the hospital stay. AT FOLLOW-UP, PLEASE: 1. Ensure patient follows up with Dr. Isabel for evaluation of pacer site and removal of liberty. 2. Monitor blood pressure. Resume Midodrine if necessary. 3. No other specific labs or vitals need follow-up. REASONS TO RETURN TO THE HOSPITAL: Including, but not limited to recurrent or worsening symptoms including chest pain, shortness of breath, nausea, vomiting, loss of consciousness, bleeding from any source, inability to obtain or tolerate medications should be considered. TIME SPENT: Greater than 60 minutes were spent on this discharge of this patient. [id number]/[facility] #: [id number] AIDAN
--- NOTE | 2019-12-10 01:58 | OP ---
DATE OF OPERATION: 12/01/19 - ROOM #452 DATE OF : 31 SURGEON: Kellee Isabel MD ANESTHESIA: MAC. PRE-OP DIAGNOSIS: Third-degree heart block. POST-OP DIAGNOSIS: Third-degree heart block. OPERATIVE PROCEDURE: Dual-chamber pacemaker implantation. ESTIMATED BLOOD LOSS: Less than 5 cc. COMPLICATIONS: None. DESCRIPTION OF PROCEDURE: The indications, risks, and benefits were discussed with the patient and he was amenable to proceeding. The patient is right-handed and the left subclavian fossa was prepped and draped in the usual sterile fashion and time-out was called. Following this, the patient received Versed and fentanyl for sedation as well as 1% lidocaine for local anesthesia (documented separately). The patient received 10 cc of radiopaque dye in the left upper extremity outlining the left subclavian and axillary veins. Following this and local anesthesia using a 10- blade knife, a 2.5 cm incision was made in the left subclavian fossa and using Bovie and blunt dissection was extended to the level of the pectoralis muscle. Additional lidocaine was infused inferiorly and using blunt dissection, a pocket was fashioned. Using a modified Seldinger technique, the left subclavian vein was cannulated and using fluoroscopic guidance, the guidewire was inserted into the left atrium. The procedure was repeated with a second guidewire. Using an introducer technique, the right ventricular lead was guided into the right ventricular apex and on to the septum. Pacing and sensing thresholds in the septum were initially suboptimal, but good thresholds were found. Using the second guidewire and an introducer technique, the atrial lead was guided into the right atrial appendage, actively fixed in place, and pacing and sensing thresholds were good. The ventricular lead was sutured to the pocket using 0 silk suture and the atrial lead was sutured as well. We then rechecked thresholds and the atrial lead was showing sensing in the ventricle and fluoro confirmed the atrial lead had dislodged. We therefore repositioned lead into the right atrial appendage again. Pacing and sensing thresholds were good and this lead was sutured to the pocket using 0 silk suture. The pocket was then copiously irrigated with normal saline. The leads were attached to the generator. The generator was placed in the pocket. The incision was closed using 2 layers of absorbable suture, 2-0 followed by 4-0 followed by liberty and external dressing. FINDINGS: The system is an MRI compatible Biotronik system. The device is an Edora 8 DR-T, reference number [id number], serial number [id number]. The atrial lead is a Biotronik Solia S 53, reference number [id number], serial number [id number]. The ventricular lead is a Solia S 60 Biotronik with a reference number [id number] and serial number [id number]. P-waves are sensed at 2.1 millivolts with an atrial lead impedance of 468 ohms and an atrial pacing threshold of 0.6 volts at 0.4 milliseconds. R-waves are sensed at 4 millivolts with a ventricular lead impedance of 838 ohms and a ventricular pacing threshold of 0.5 volts at 0.4 milliseconds. The patient was programmed at dual-chamber mode with a low rate at 60 beats a minute, upper rate at 120 beats a minute. The patient was hemodynamically stable throughout the procedure and the recovery. CONCLUSION: Successful implantation of dual-chamber pacemaker, atrial lead had to be repositioned in the OR due to dislodgment. No other complications. [id number]/[facility] #: [id number] [facility]
== END 2019-12-06 14:36 | DRG 244 ==
LOC: ED 22:33 → ICU 12-01 00:37 → OBSVTOIN 12-01 00:40 → MEDTELE 12-02 07:20
PROVIDERS: ADMIT Internal Medicine; ATTEND Internal Medicine
PROC: 02H63JZ Insertion of Pacemaker Lead into Right Atrium, Percutaneous Approach (ICD-10-PCS; 2019-12-01)
PROC: 02HK3JZ Insertion of Pacemaker Lead into Right Ventricle, Percutaneous Approach (ICD-10-PCS; 2019-12-01)
PROC: 4B02XSZ Measurement of Cardiac Pacemaker, External Approach (ICD-10-PCS; 2019-12-01)
PROC: 5A12012 Performance of Cardiac Output, Single, Manual (ICD-10-PCS; 2019-12-01)
PROC: 0JH606Z Insertion of Pacemaker, Dual Chamber into Chest Subcutaneous Tissue and Fascia, Open Approach (ICD-10-PCS; principal; 2019-12-01 13:30)
DX: I44.2 Atrioventricular block, complete (principal); E03.9 Hypothyroidism, unspecified; K21.9 Gastro-esophageal reflux disease without esophagitis; K57.90 Diverticulosis of intestine, part unspecified, without perforation or abscess without bleeding; M19.90 Unspecified osteoarthritis, unspecified site; M81.0 Age-related osteoporosis without current pathological fracture; F32.9 Major depressive disorder, single episode, unspecified; I45.2 Bifascicular block; I27.20 Pulmonary hypertension, unspecified; I08.3 Combined rheumatic disorders of mitral, aortic and tricuspid valves; I95.9 Hypotension, unspecified; K59.09 Other constipation; K64.9 Unspecified hemorrhoids; G89.29 Other chronic pain; M54.9 Dorsalgia, unspecified; N40.1 Benign prostatic hyperplasia with lower urinary tract symptoms; Z66 Do not resuscitate; K74.60 Unspecified cirrhosis of liver; R60.0 Localized edema; R00.1 Bradycardia, unspecified; R41.3 Other amnesia; N39.498 Other specified urinary incontinence; Z88.0 Allergy status to penicillin; Z86.718 Personal history of other venous thrombosis and embolism; Z99.3 Dependence on wheelchair; Z79.890 Hormone replacement therapy; Z79.899 Other long term (current) drug therapy
CPT/HCPCS: 33208; 36415; 71045; 71046; 80048; 80053; 81003; 83605; 83735; 83880; 84443; 84484; 85025; 85379; 85610; 86141; 87040; 87641; 93005; 93306; 93970; 96374; 99156; 99157; 99285; A9270-GY; C1786; C1892; C1898; C8929; J0461; J1265; J1650; J2250; J3010

== ENCOUNTER 2020-12-30 01:53 | Inpatient (IN) ==
[2020-12-30] MEDS ORDERED: Lactated Ringers 1000 ml BAG IV.FLUID IV ONE (01:57)
[2020-12-30] MEDS ORDERED: cefTRIAXone 1 gm/50 mL NS BAG 1 GM/50 ML BAG IV ONE (02:15)
[2020-12-30] MEDS ORDERED: Azithromycin 500 mg/250 ml NS 500 MG/250 ML BAG IVPB ONE (02:15)
[2020-12-30] MEDS ORDERED: cefTRIAXone 1 gm/50 mL NS BAG 1 GM/50 ML BAG ONE (02:17)
[2020-12-30] MEDS ORDERED: Azithromycin 500 mg/250 ml NS 500 MG/250 ML BAG ONE (02:17)
[2020-12-30 02:31] LABS: Hematocrit 26 % (42-52); Hemoglobin 8.5 g/dL (14.0-18.0); Mean Corpuscular HGB Conc 33 g/dL (31-36); Mean Corpuscular Hemoglobin 32 pg (27-31); Mean Corpuscular Volume 98 fL (80-94); Mean Platelet Volume 8.6 fL (7.4-10.4); Platelet Count 196 10^3/uL (150-450); Red Blood Count 2.63 10^6 /uL (4.18-5.48); Red Cell Distribution Width 17 % (10-15); White Blood Count 23.5 10^3/uL (3.5-10.8)
[2020-12-30 02:32] LABS: ABS Basophils 0.2 10^3/ul (0-0.2); ABS Lymphocytes 0.3 10^3/ul (1.0-4.8); ABS Monocytes 1.4 10^3/ul (0-0.8); ABS Neutrophils 21.5 10^3/ul (1.5-7.7); Lymphocyte % 1.2 %
[2020-12-30 02:40] LABS: Activated Partial Thrombo Time 20.1 seconds (26.0-38.0); INR 1.58 (0.82-1.09)
[2020-12-30 02:48] LABS: ALT 28 U/L (7-52); AST 27 U/L (13-39); Albumin 2.7 g/dL (3.2-5.2); Alkaline Phosphatase 58 U/L (34-104); Anion Gap 8 mmol/L (2-11); BUN/Creatinine Ratio 29.4 (8-20); Blood Urea Nitrogen 40 mg/dL (6-24); C Reactive Protein 114.83 mg/L (<8.01); CO2 Carbon Dioxide 23 mmol/L (22-32); Calcium 7.8 mg/dL (8.6-10.3); Chloride 107 mmol/L (101-111); EGFR Non-African American 49.6 (>60); Globulin 2.6 g/dL (2-4); Glucose 117 mg/dL (70-100); Potassium 3.9 mmol/L (3.5-5.0); Sodium 138 mmol/L (135-145); Total Protein 5.3 g/dL (6.4-8.9)
[2020-12-30 02:51] LABS: Urine Appearance Turbid; Urine Bilirubin Negative (Negative); Urine Blood 3+ (Negative); Urine Color Amber; Urine Glucose Negative (Negative); Urine Ketones Trace (Negative); Urine Nitrite Negative (Negative); Urine Protein 2+(100 mg/dL) (Negative); Urine Specific Gravity 1.025 (1.010-1.030); Urine Urobilinogen Negative (Negative)
[2020-12-30 02:52] LABS: Influenza A Molecular Negative (Negative); Influenza B Molecular Negative (Negative); Troponin I 0.03 ng/mL (<0.03)
[2020-12-30] MEDS ORDERED: Norepinephrine 16MCG/ML IVPRE 4,000 MCG/250 ML BAG IV ONE (03:09)
[2020-12-30 03:19] LABS: Urine Bacteria 1+ (Absent); Urine Red Blood Cell 1+(3-5/hpf) (Absent); Urine Renal Epithelial Cells Present (Absent); Urine White Blood Cell 2+(11-20/hpf) (Absent)
[2020-12-30] MEDS: Norepinephrine 16MCG/ML IVPRE 4,000 MCG/250 ML BAG IV SCH ×7 (03:30→19:13)
[2020-12-30 03:31] LABS: Polychromasia 1+
[2020-12-30] MEDS ORDERED: Ondansetron 4 mg VIAL 2 MG/ML 2 ml VIAL IV PRN (05:27)
[2020-12-30] MEDS ORDERED: Lactated Ringers 1000 ml BAG 1,000 ML IV ONE ×2 (05:27→14:28)
[2020-12-30] MEDS ORDERED: Vancomycin 1,000 MG in NS 0.9% 250 ml 250 ML IVPB SCH (05:28)
[2020-12-30] MEDS ORDERED: Vancomycin 1,000 MG - ED ONCE IVPB ONE (05:30)
[2020-12-30] MEDS ORDERED: Albuterol 2.5mg/3 ml (0.083%) NEB.SOLN INH PRN (05:41)
[2020-12-30 06:09] LABS: Hematocrit 26 % (42-52); Hemoglobin 8.5 g/dL (14.0-18.0); Mean Corpuscular HGB Conc 32 g/dL (31-36); Mean Corpuscular Hemoglobin 32 pg (27-31); Mean Corpuscular Volume 100 fL (80-94); Mean Platelet Volume 8.5 fL (7.4-10.4); Platelet Count 208 10^3/uL (150-450); Red Blood Count 2.64 10^6 /uL (4.18-5.48); Red Cell Distribution Width 17 % (10-15); White Blood Count 22.8 10^3/uL (3.5-10.8)
[2020-12-30 06:10] LABS: ABS Basophils 0.1 10^3/ul (0-0.2); ABS Lymphocytes 0.4 10^3/ul (1.0-4.8); ABS Monocytes 1.2 10^3/ul (0-0.8); ABS Neutrophils 21.1 10^3/ul (1.5-7.7); Lymphocyte % 1.6 %
[2020-12-30 06:24] LABS: Anion Gap 9 mmol/L (2-11); BUN/Creatinine Ratio 28.5 (8-20); Blood Urea Nitrogen 37 mg/dL (6-24); CO2 Carbon Dioxide 21 mmol/L (22-32); Calcium 7.5 mg/dL (8.6-10.3); Chloride 108 mmol/L (101-111); EGFR African American 63.2 (>60); EGFR Non-African American 52.2 (>60); Glucose 141 mg/dL (70-100); Potassium 4.3 mmol/L (3.5-5.0); Sodium 138 mmol/L (135-145)
[2020-12-30 06:30] LABS: Troponin I 0.04 ng/mL (<0.03)
[2020-12-30] MEDS ORDERED: Cefepime 1 GM in Dextrose 1 GM/50 ML BAG IV SCH (07:00)
[2020-12-30] MEDS: Levothyroxine 100 MCG/5 ML VIAL IV SCH (08:49)
[2020-12-30] MEDS: Pantoprazole VIAL 40 MG VIAL IV SCH (08:57)
[2020-12-30] MEDS ORDERED: [UNRECOGNIZED DRUG - OTHER] TOPICAL SCH (09:00)
[2020-12-30 09:09] LABS: Magnesium 1.4 mg/dL (1.9-2.7); Phosphorus 3.8 mg/dL (2.5-5.0)
[2020-12-30] MEDS ORDERED: Magnesium Sulf 4 GM/100 ML IV 4,000 MG/100 ML BAG IVPB ONE (09:52)
[2020-12-30] MEDS ORDERED: Linezolid 600 MG IVPREMIX(*) 600 MG/300 ML BAG IVPB SCH (10:00)
[2020-12-30] MEDS ORDERED: Hydrocortisone INJ 100 MG/2ML 2 ML VIAL IV ONE (10:06)
[2020-12-30 10:45] LABS: Troponin I 0.06 ng/mL (<0.03)
[2020-12-30] MEDS ORDERED: Piperacillin/Tazobac ADVAN 3.375 GM in NS 0.9% 100 ml BAG 100 ML IV SCH (11:00)
[2020-12-30] MEDS: Senna TAB 8.6 mg TAB PO SCH (11:25)
[2020-12-30] MEDS ORDERED: Lactated Ringers 1000 ml BAG 1,000 ML IV SCH (14:00)
[2020-12-30] MEDS ORDERED: Rocuronium 50 mg VIAL 10 mg/ml 5 ml VIAL (50 mg) ONE (14:02)
[2020-12-30] MEDS ORDERED: Succinylcholine 200 mg VIAL 20 mg/ml 10 ml VIAL (200 mg) ONE (14:02)
[2020-12-30] MEDS ORDERED: Etomidate 40 mg/20 ml (2 MG/ML) 20 ml VIAL (40 mg) ONE (14:13)
[2020-12-30] MEDS ORDERED: Propofol 10 MG/ML 20 ML BTL ONE (14:13)
[2020-12-30] MEDS ORDERED: Dexmedetomidine 1,000 MCG in NS 0.9% 250 ml 240 ML IV SCH (15:00)
[2020-12-30] MEDS ORDERED: Lorazepam PYXIS KEY PRN (16:52)
[2020-12-30 17:09] LABS: Troponin I 0.16 ng/mL (<0.03)
[2020-12-30] MEDS: LORazepam 2 mg VIAL 1 ml IV PUSH PRN (17:48)
[2020-12-30] MEDS ORDERED: Phenylephrine IV 50 MG in NS 0.9% 250 ml 245 ML IV SCH (18:30)
[2020-12-30] MEDS ORDERED: Vancomycin per Pharmacy 1 EA NOTE FOLLOW UP PRN (18:43)
[2020-12-30] MEDS: Propofol 10 mg/ml 100 ML BTL 100 ML IV SCH (19:31)
[2020-12-30] MEDS: Propofol* 20 ML VIAL - FOR IV LINE PRIMING ONLY SCH (19:58)
[2020-12-30 20:24] LABS: Albumin 2.9 g/dL (3.2-5.2); Albumin/Globulin Ratio 0.9 (1-3); Calcium 7.6 mg/dL (8.6-10.3); EGFR Non-African American 42.9 (>60); Globulin 3.1 g/dL (2-4); Potassium 4.2 mmol/L (3.5-5.0); Total Bilirubin 0.5 mg/dL (0.2-1.0)
[2020-12-30] MEDS: Vancomycin 750 MG in NS 0.9% 250 ML IVPB SCH (20:40)
[2020-12-30] MEDS: Piperacillin/Tazobac ADVAN 3.375 GM in NS 0.9% 100 ml BAG 100 ML IV SCH (20:40)
[2020-12-30] MEDS: Hydrocortisone INJ 100 MG/2ML 2 ML VIAL IV SCH (21:01)
[2020-12-30] MEDS: Chlorhexidine MOUTHWASH 0.12% 15 ML UDC TOPICAL SCH (21:01)
[2020-12-30] MEDS: Polyethylene Glycol 3350 17 GM PACKET PO SCH (23:10)
[2020-12-30] MEDS ORDERED: Sodium Bicarb 8.4% Vial 50 ML 150 MEQ in D5W 1000 ml BAG 850 ML IV SCH (23:30)
[2020-12-31] MEDS: Chlorhexidine MOUTHWASH 0.12% 15 ML UDC TOPICAL SCH ×4 (00:21→12:40)
[2020-12-31] MEDS ORDERED: Azithromycin 500 mg/250 ml NS 500 MG/250 ML BAG IVPB SCH (02:00)
[2020-12-31] MEDS: Norepinephrine *QUAD STRENGTH* 16 mg/250 mL NS per protocol IV SCH ×2 (02:39→11:00)
[2020-12-31] MEDS: Hydrocortisone INJ 100 MG/2ML 2 ML VIAL IV SCH ×2 (03:54→11:45)
[2020-12-31] MEDS: Piperacillin/Tazobac ADVAN 3.375 GM in NS 0.9% 100 ml BAG 100 ML IV SCH ×2 (03:54→11:53)
[2020-12-31] MEDS: Propofol 10 mg/ml 100 ML BTL 100 ML IV SCH (04:06)
[2020-12-31 04:52] LABS: Hematocrit 37 % (42-52); Hemoglobin 11.7 g/dL (14.0-18.0); Mean Corpuscular HGB Conc 32 g/dL (31-36); Mean Corpuscular Hemoglobin 32 pg (27-31); Mean Corpuscular Volume 102 fL (80-94); Mean Platelet Volume 10.8 fL (7.4-10.4); Platelet Count 146 10^3/uL (150-450); Red Blood Count 3.62 10^6 /uL (4.18-5.48); Red Cell Distribution Width 18 % (10-15); White Blood Count 46.6 10^3/uL (3.5-10.8)
[2020-12-31 05:01] LABS: INR 1.69 (0.82-1.09)
[2020-12-31 05:14] LABS: ALT 217 U/L (7-52); Albumin/Globulin Ratio 0.9 (1-3); Alkaline Phosphatase 69 U/L (34-104); Blood Urea Nitrogen 43 mg/dL (6-24); CO2 Carbon Dioxide 15 mmol/L (22-32); Calcium 7.8 mg/dL (8.6-10.3); Chloride 108 mmol/L (101-111); EGFR African American 50.1 (>60); EGFR Non-African American 41.4 (>60); Globulin 3.5 g/dL (2-4); Glucose 169 mg/dL (70-100); Magnesium 2.5 mg/dL (1.9-2.7); Phosphorus 5.3 mg/dL (2.5-5.0); Sodium 139 mmol/L (135-145); Total Protein 6.5 g/dL (6.4-8.9)
[2020-12-31] MEDS: Propofol* 20 ML VIAL - FOR IV LINE PRIMING ONLY SCH (05:35)
[2020-12-31] MEDS: Levothyroxine 100 MCG/5 ML VIAL IV SCH (05:41)
[2020-12-31 05:42] LABS: Troponin I 0.49 ng/mL (<0.03)
[2020-12-31 05:44] LABS: Anion Gap 16 mmol/L (2-11)
[2020-12-31 07:13] LABS: Potassium Redraw 5.1 mmol/L (3.5-5.0)
[2020-12-31] MEDS: Vancomycin 750 MG in NS 0.9% 250 ML IVPB SCH (08:44)
[2020-12-31] MEDS: Polyethylene Glycol 3350 17 GM PACKET PO SCH (09:00)
[2020-12-31] MEDS: Senna TAB 8.6 mg TAB PO SCH (09:00)
[2020-12-31] MEDS: Pantoprazole VIAL 40 MG VIAL IV SCH (09:00)
[2020-12-31] MEDS: Dextran 70/Hypromellose Tears Eye Drops 15 ml BTL (for Artificials Tears) BOTH EYES PRN ×2 (10:00→12:02)
[2020-12-31] MEDS ORDERED: LORazepam 2 mg VIAL 1 ml IV PUSH PRN (13:55)
[2020-12-31] MEDS ORDERED: Lorazepam PYXIS KEY PRN (13:55)
[2020-12-31] MEDS: LORazepam 2 mg VIAL 1 ml IV PUSH PRN (14:17)
[2020-12-31 15:35] VITALS: BP 90/70
[2020-12-31] MEDS ORDERED: Vancomycin Trough Check NOTE FOLLOW UP ONE (19:30)
== END 2020-12-31 15:03 | disposition expired | DRG 871 ==
LOC: ED 01:53 → ICU 05:22
PROVIDERS: ADMIT Internal Medicine Interventional Cardiology; ATTEND Internal Medicine